=== PATIENT | male | born 1950 | race Caucasian/White ===

== ENCOUNTER 2020-06-19 08:08 | Outpatient (REF) | payer MEDICARE, MEDICAID, SELFPAY ==
[2020-06-19 10:12] LABS: MANUAL DIFF FLAG NO
[2020-06-19 10:44] LABS: Glucose Urine UA NEG (NEG); Leukocyte Esterase Urine NEG (NEG); Nitrite Urine NEG (NEG); PH 6.5 (5.0-8.0); Urine Blood TRACE (NEG); Urine Ketones NEG (NEG); Urine Protein NEG (NEG-TRACE)
[2020-06-19 10:44] LABS: Basophils Absolute Auto 0.1 X10*3/uL (0.0-0.2); Basophils Percent Auto 0.7 % (0-2); Eosinophils Absolute Auto 0.2 X10*3/uL (0.0-0.4); Eosinophils Percent Auto 2.3 % (0-4); Hematocrit 40.3 % (42-52); Hemoglobin 13.9 g/dl (14.0-18.0); Imm Gran Abs Auto 0.02 X10*3/uL (0.00-0.03); Imm Gran Pct Auto 0.3 % (0.0-0.4); Lymphocytes Absolute Auto 1.6 X10*3/uL (1.2-4.9); Lymphocytes Percent Auto 23.3 % (20-40); Mean Corpuscular HGB Conc 34.5 g/dl (31.0-36.0); Mean Corpuscular Hemoglobin 31.3 pg (27.0-33.0); Mean Corpuscular Volume 90.8 fL (80-98); Mean Platelet Volume 10.8 fL (9.4-12.4); Monocytes Absolute Auto 0.7 X10*3/uL (0.1-1.2); Monocytes Percent Auto 9.6 % (2-11); Neutrophils Absolute Auto 4.4 X10*3/uL (2.0-8.3); Neutrophils Percent Auto 63.8 % (45-73); Platelet Count 266 X10*3/uL (160-400); Red Blood Count 4.44 X10*6/uL (4.60-5.80); Red Cell Distribution Width 12.9 % (11.0-16.0)
[2020-06-19 10:46] LABS: Appearance Urine CLEAR; Color Urine YELLOW
[2020-06-19 10:56] LABS: Alanine Aminotransferase 44 U/L (0-40); Albumin Level 4.7 g/dL (3.5-5.0); Alkaline Phosphatase 42 U/L (39-117); Anion Gap 9 (12-20); Aspartate Amino Transferase 25 U/L (5-37); Bilirubin Total 0.6 mg/dL (0.0-1.0); Blood Urea Nitrogen 16 mg/dL (9-16); Calcium 9.4 mg/dL (8.4-10.2); Carbon Dioxide 31 mmol/L (22-29); Chloride 99 mmol/L (96-108); Cholesterol 183 mg/dL; Estimated Glomerular Filt Rate > 60; Glucose Fasting 115 mg/dL (60-99); HDL Cholesterol 46 mg/dL; LDL Cholesterol Calculated 122 mg/dl; Potassium 4.1 mmol/l (3.3-5.1); Sodium 135 mmol/L (135-145); Total Protein 7.2 g/dL (6.5-8.0); Triglycerides 79 mg/dL
[2020-06-19 11:04] LABS: RBC Urine 0-2 /HPF (0); Squamous Epithelial Cell Urine TRACE /LPF; WBC Urine 0 /HPF (0-4)
[2020-06-19 11:20] LABS: Free T4 (Free Thyroxine) 0.95 ng/dL (0.71-1.85); Thyroid Stimulating Hormone 5.48 mIU/mL (0.32-4.0)
[2020-06-19 12:17] LABS: Prostate Specific Antigen Scr 7.35 ng/mL (<0.05-4.0)
== END 2020-06-19 08:09 | disposition home or self-care (01) ==
LOC: HO.10HDL 08:08
PROVIDERS: Visit Provider Internal Medicine
DX: Z12.5 Encounter for screening for malignant neoplasm of prostate (principal); E03.9 Hypothyroidism, unspecified; E78.00 Pure hypercholesterolemia, unspecified; R63.4 Abnormal weight loss; R35.0 Frequency of micturition
CPT/HCPCS: 36415; 80053; 80061; 81001; 84153; 84439; 84443; 85025

== ENCOUNTER → 2020-09-11 15:06 | Outpatient (BNVA) | payer MEDICARE, MEDICAID, SELFPAY | PROVIDERS: PCP Internal Medicine; Visit Provider Urology | DX: R97.20 Elevated prostate specific antigen [PSA] (principal) | CPT/HCPCS: 99202 ==

== ENCOUNTER 2020-09-12 08:58 | Outpatient (REF) | payer MEDICARE, MEDICAID, SELFPAY ==
[2020-09-12 12:18] LABS: PSA,Total (Free>4and<10) 12.55 ng/mL (0.00-4.00)
== END 2020-09-12 08:59 | disposition home or self-care (01) ==
LOC: HO.10HDL 08:58
PROVIDERS: Visit Provider Urology
DX: N40.1 Benign prostatic hyperplasia with lower urinary tract symptoms (principal); N13.8 Other obstructive and reflux uropathy; R97.20 Elevated prostate specific antigen [PSA]; Z12.5 Encounter for screening for malignant neoplasm of prostate
CPT/HCPCS: 36415; 84153

== ENCOUNTER → 2020-09-25 10:12 | Outpatient (BNVA) | payer MEDICARE, OTHER, SELFPAY | PROVIDERS: PCP Internal Medicine; Visit Provider Urology | DX: R97.20 Elevated prostate specific antigen [PSA] (principal) | CPT/HCPCS: 99212 ==

== ENCOUNTER 2020-10-02 | Outpatient (REF) | payer MEDICARE, SELFPAY | END 2020-10-02 00:01 | disposition home or self-care (01) | LOC: HO.US | PROVIDERS: Visit Provider Urology | DX: R97.20 Elevated prostate specific antigen [PSA] (principal); Z87.891 Personal history of nicotine dependence; Z88.2 Allergy status to sulfonamides | CPT/HCPCS: 55700; 99211 ==

== ENCOUNTER 2020-10-02 11:09 | Outpatient (REF) | payer MEDICARE, OTHER, SELFPAY | END 2020-10-02 11:10 | disposition home or self-care (01) | LOC: HO.LAB 11:09 | PROVIDERS: PCP Internal Medicine; Visit Provider Urology | DX: R97.20 Elevated prostate specific antigen [PSA] (principal); Z12.5 Encounter for screening for malignant neoplasm of prostate | CPT/HCPCS: 55700; 88305 ==

== ENCOUNTER → 2020-10-09 11:21 | Outpatient (BNVA) | payer MEDICARE, OTHER, SELFPAY | PROVIDERS: Visit Provider Urology | DX: C61 Malignant neoplasm of prostate (principal); Z98.890 Other specified postprocedural states | CPT/HCPCS: 99212 ==

== ENCOUNTER → 2020-10-13 09:50 | Outpatient (REF) | payer MEDICARE, OTHER, SELFPAY ==
--- NOTE | ~2020-10-13 | NM_ITS ---
EXAMINATION: NM BONE SCAN OF THE WHOLE BODY CLINICAL INFORMATION: Prostate cancer, elevated PSA. Ultrasound-guided prostate biopsy 10/02/2020. COMPARISON: No previous bone scan or recent radiographs are available for comparison. Radiographs of the chest dated 05/24/2019 are the most recent radiographs available for comparison. TECHNIQUE: Multiple gamma scintillation camera images of the whole body were performed 3 hours following the intravenous administration of 25.0 mCi Tc-99m MDP. FINDINGS: In the head, no significant abnormalities are present. In the thoracic cage and upper extremities, there is mildly increased activity in the acromioclavicular and sternoclavicular joints bilaterally. Some residual radiopharmaceutical at the injection site in the left antecubital fossa is noted. In the spine, a minimal thoracolumbar scoliosis is present with lower lumbar convexity to the right. No foci of abnormal activity are present in the spine. In the pelvis, no significant abnormalities are present. In the lower extremities, no significant abnormalities are present. No other definite bony abnormalities are noted. The urinary bladder and faint visualization of both kidneys are noted. NM/NM bone scan whole body IMPRESSION: A few mild nonspecific abnormalities are noted as described above and these are all likely arthritic or traumatic in etiology. None of these abnormalities is strongly suspicious for metastatic disease.
== END ==
LOC: HO.NUCMED 09:50
PROVIDERS: Visit Provider Urology
DX: C61 Malignant neoplasm of prostate (principal); C79.51 Secondary malignant neoplasm of bone
CPT/HCPCS: 78306; A9503

== ENCOUNTER 2020-10-17 08:52 | Outpatient (REF) | payer MEDICARE, MEDICAID, SELFPAY ==
--- NOTE | ~2020-10-17 | CT_ITS ---
EXAMINATION: CT ABDOMEN AND PELVIS WITHOUT CONTRAST CLINICAL INFORMATION: Abdominal pain, ? Neoplasm related. COMPARISON: None TECHNIQUE: Multidetector volumetric imaging was performed from the superior aspect of the liver through the pubic symphysis. Sagittal and coronal reformatted images were obtained on the technologist's workstation. This CT examination was performed using dose optimization techniques as appropriate, variously including the following: *Automated exposure control *Adjustment of mA and/or kV according to patient size (this includes techniques or standardized protocols for targeted exams where dose is matched to indication/reason for exam; i.e. extremities or head) *Use of iterative reconstruction technique DLP: 431 mGy-cm FINDINGS: LUNG BASES: The visualized lung bases are unremarkable. LIVER, GALLBLADDER, AND BILIARY TREE: The liver is normal in size, shape, and attenuation. No focal hepatic lesion or biliary ductal dilatation is present. The gallbladder is unremarkable with no evidence of radiopaque gallstones, gallbladder wall thickening, or obvious pericholecystic inflammatory changes. PANCREAS: Unremarkable. SPLEEN: Unremarkable. ADRENAL GLANDS: Unremarkable. KIDNEYS AND URETERS: There is mild cortical thinning or postsurgical changes in the posterior cortex upper pole left kidney. Otherwise, both kidneys are normal size, shape and position. No radiopaque renal calculi or hydronephrosis seen. BLADDER: Unremarkable. GASTROINTESTINAL TRACT: Scattered stool is seen throughout the colon without any significant distention. The small bowel loops are normal caliber. The appendix is normal caliber. ABDOMINAL WALL: There is evidence of anterior abdominal wall hernia repair with mesh in place. No recurrent hernia seen. LYMPH NODES: Normal. VASCULAR: Unremarkable. PELVIC VISCERA: The prostate gland is enlarged. The periprostatic fat planes are preserved. No free air or free fluid seen. OSSEOUS STRUCTURES: No lytic or sclerotic process seen. There are degenerative disc changes with vacuum disc phenomena at the L3-L4, L4-L5 and L5-S1 disc levels with mild posterior spondylosis. No lytic or sclerotic process seen. CT/CT abdomen pelvis wo con IMPRESSION: Mild prostate enlargement with central gland calcification. No abnormal pelvic or inguinal lymph nodes seen.
== END 2020-10-17 08:53 | disposition home or self-care (01) ==
LOC: HO.CT 08:52
PROVIDERS: Visit Provider Urology
DX: C61 Malignant neoplasm of prostate (principal); C79.51 Secondary malignant neoplasm of bone; G89.3 Neoplasm related pain (acute) (chronic)
CPT/HCPCS: 74176

== ENCOUNTER → 2020-10-21 08:30 | Outpatient (BNVA) | payer MEDICARE, OTHER, SELFPAY | PROVIDERS: Visit Provider Urology | DX: C61 Malignant neoplasm of prostate (principal) | CPT/HCPCS: 96402; 99212; J9217 ==

== ENCOUNTER 2020-11-12 11:31 | Outpatient (REF) | payer MEDICARE, OTHER, SELFPAY ==
[2020-11-12 11:44] VITALS: BMI 24.7
[2020-11-12 11:45] VITALS: BP 151/87; PULSE 68; RESP 16; TEMP 37.1; O2SAT 99
[2020-11-12 12:32] VITALS: BP 158/75; PULSE 80; RESP 16; O2SAT 98
== END 2020-11-12 11:32 | disposition home or self-care (01) ==
LOC: HO.MS 11:31
PROVIDERS: PCP Internal Medicine; Visit Provider Urology
PROC: (CPT 55876; principal; 2020-11-12 12:00)
DX: C61 Malignant neoplasm of prostate (principal)
CPT/HCPCS: 55876; 76942; A4648

== ENCOUNTER 2021-02-03 12:16 | Outpatient (REF) | payer MEDICARE, MEDICAID, SELFPAY ==
[2021-02-03 13:23] LABS: Basophils Percent Auto 0.4 % (0-2); Eosinophils Absolute Auto 1.6 X10*3/uL (0.0-0.4); Eosinophils Percent Auto 16.9 % (0-4); Hematocrit 31.8 % (42-52); Imm Gran Abs Auto 0.09 X10*3/uL (0.00-0.03); Lymphocytes Absolute Auto 0.6 X10*3/uL (1.2-4.9); Lymphocytes Percent Auto 6.6 % (20-40); MANUAL DIFF FLAG SCAN; Mean Corpuscular HGB Conc 34.6 g/dl (31.0-36.0); Mean Corpuscular Hemoglobin 31.9 pg (27.0-33.0); Mean Corpuscular Volume 92.2 fL (80-98); Mean Platelet Volume 9.9 fL (9.4-12.4); Monocytes Absolute Auto 0.9 X10*3/uL (0.1-1.2); Monocytes Percent Auto 9.9 % (2-11); Neutrophils Absolute Auto 6.1 X10*3/uL (2.0-8.3); Neutrophils Percent Auto 65.2 % (45-73); Platelet Count 227 X10*3/uL (160-400); Red Blood Count 3.45 X10*6/uL (4.60-5.80); Red Cell Distribution Width 14.6 % (11.0-16.0); SCAN SMEAR FLAG 1; White Blood Count 9.3 X10*3/uL (4.8-10.8)
[2021-02-03 14:06] LABS: Alanine Aminotransferase 27 U/L (0-40); Albumin Level 4.1 g/dL (3.5-5.0); Alkaline Phosphatase 34 U/L (39-117); Anion Gap 14 (12-20); Aspartate Amino Transferase 20 U/L (5-37); Bilirubin Total 0.4 mg/dL (0.0-1.0); Blood Urea Nitrogen 16 mg/dL (9-16); Calcium 9.1 mg/dL (8.4-10.2); Carbon Dioxide 24 mmol/L (22-29); Chloride 103 mmol/L (96-108); Estimated Glomerular Filt Rate > 60; Glucose Random 97 mg/dL (60-115); Magnesium 2.1 mg/dL (1.6-2.6); Potassium 4.7 mmol/L (3.3-5.1); Sodium 136 mmol/L (135-145)
[2021-02-03 14:12] LABS: Free T4 (Free Thyroxine) 0.81 ng/dL (0.71-1.85); Thyroid Stimulating Hormone 3.55 uIU/mL (0.32-4.0)
[2021-02-03 14:36] LABS: SLIDE REVIEW VERIFIED
== END 2021-02-03 12:17 | disposition home or self-care (01) ==
LOC: HO.10HDL 12:16
PROVIDERS: Visit Provider Internal Medicine
DX: R25.2 Cramp and spasm (principal); E03.9 Hypothyroidism, unspecified; E78.00 Pure hypercholesterolemia, unspecified
CPT/HCPCS: 36415; 80053; 83735; 84439; 84443; 85025

== ENCOUNTER → 2021-03-03 09:55 | Outpatient (BNVA) | payer MEDICARE, MEDICAID, SELFPAY | PROVIDERS: PCP Internal Medicine; Visit Provider Urology | DX: C61 Malignant neoplasm of prostate (principal); R39.15 Urgency of urination; G47.62 Sleep related leg cramps | CPT/HCPCS: 99212 ==

== ENCOUNTER → 2021-04-24 10:41 | Outpatient (BNVA) | payer MEDICARE, OTHER, SELFPAY | PROVIDERS: PCP Internal Medicine; Visit Provider Urology | DX: C61 Malignant neoplasm of prostate (principal); R39.15 Urgency of urination | CPT/HCPCS: 96402; 99212; J9217 ==

== ENCOUNTER 2021-05-10 19:14 | Emergency (ER) | payer MEDICARE, OTHER, SELFPAY ==
--- NOTE | 2021-05-10 | ECG_ITS ---
Test Reason : EXPOSURE Blood Pressure : / mmHG Vent. Rate : 081 BPM Atrial Rate : 081 BPM P-R Int : 124 ms QRS Dur : 094 ms QT Int : 388 ms P-R-T Axes : 038 -35 036 degrees QTc Int : 450 ms Normal sinus rhythm with sinus arrhythmia Left axis deviation Abnormal ECG No previous ECGs available Referred By: Lobo Israel Electronically Signed By:RAMONA MARLEY
[2021-05-10 19:24] VITALS: BP 163/76; PULSE 78; RESP 20; TEMP 36.8; O2SAT 97; BMI 22.8
[2021-05-10 19:29] VITALS: BP 120/68; PULSE 74; O2SAT 100
--- NOTE | 2021-05-10 19:29 | ED.EYEPROB ---
HPI - Eye Problem General Chief complaint: General Medical Stated complaint: exposure Time Seen by Provider: 05/10/21 19:27 Source: patient Mode of arrival: ambulatory Limitations: no limitations History of Present Illness HPI Narrative: Patient was removing the refrigerator had to cut the tubing in the back free on it started leaking went to his face but 2- 3 minutes felt burning in the eyes wash his eyes with water. No chest pain or shortness of breath feels better now back to normal call the poison Control who asked him to go to the hospital Related Data Home Medications Medication Instructions Recorded Confirmed levothyroxine 50 mcg tablet mcg PO 09/11/20 09/11/20 sertraline 100 mg tablet mg PO 09/11/20 09/11/20 simvastatin 20 mg tablet mg PO 09/11/20 09/11/20 Previous Rx's Medication Instructions Recorded ciprofloxacin HCl 500 mg tablet 500 mg PO BID 2 Days #4 tab 09/25/20 (Cipro) levofloxacin 500 mg tablet 500 mg PO DAILY 1 Days #1 tab 11/12/20 magnesium citrate 125 mg capsule 250 mg PO BEDTIME 30 Days #60 cap 03/03/21 tolterodine 4 mg capsule,extended 4 mg PO .Q.a.m. 30 Days #30 cap 04/20/21 release 24 hr finasteride 5 mg tablet 5 mg PO DAILY 90 Days #90 tab 04/24/21 tamsulosin 0.4 mg capsule 0.4 mg PO BEDTIME 90 Days #90 cap 04/24/21 Allergies Allergy/AdvReac Type Severity Reaction Status Date / Time Sulfa (Sulfonamide Allergy Intermediate RASH Verified 05/10/21 19:29 Antibiotics) [SULFA (SULFONAMIDE ANTIBIOTICS)] sulfa Allergy Unknown hives Uncoded 05/10/21 19:29 Review of Systems Review of Systems: Yes all other systems are reviewed and are negative PMFSH Past Medical History Medical History Carbuncle of buttock Depression Elevated PSA Epidermal cyst Recurrent left inguinal hernia Family History Family History Father No problems noted. Mother Heart valve problem Social History Social History Advance Directives: Yes Advance Directives on File: Yes Advance Directives Date on File: 06/19/20 Physical Exam Vital Signs: Vital Signs: Last Vital Signs Temp 98.3 F 05/10/21 19:24 Pulse 78 05/10/21 19:24 Resp 20 05/10/21 19:24 BP 163/76 H 05/10/21 19:24 Pulse Ox 97 05/10/21 19:24 Body Mass Index 22.8 Const: General: no acute distress and well developed Orientation/consciousness: patient oriented x3 HENMT: Head: Yes normocephalic Mouth: Normal oral and palatal mucosa present Throat: Yes posterior oropharynx normal Eyes: General: appearance normal, both eyes and all related structures Conjunctivae: conjunctivae normal Sclerae: sclerae normal Corneas: corneas normal Pupils: Equal, round and reactive pupils present Resp: Effort & Inspection: normal respiratory effort Auscultation: clear to auscultation bilaterally, no crackles, no rales and no rhonchi Cardio: Palpation: normal PMI Heart sounds: S1 normal heart sound present and S2 normal heart sound present Neuro: General: patient oriented x3 and no focal motor deficits Cranial nerves: Yes Equal, round and reactive pupils present MDM - Eye Problem MDM Narrative Medical decision making narrative: Minor exposure to hydrocarbons free on eyes were normal had slight burning at the scene patient washed his eye prior to arrival washed in the ER again. EKG was done which was normal no acute ischemic changes will discharge patient ECG Data Attestation: I personally reviewed and interpreted this ECG as follows: Interpretation: Normal sinus rhythm heart rate 81 beats per minute left axis deviation no acute ST T wave changes impression no ischemia Discharge Plan Discharge Clinical Impression: Chemical exposure of eye Patient Disposition: Home, Self-Care Instructions: [facility] [place] (ED) Additional Instructions: Local care as advised Report to PCP/ED if any blurry vision or pain in the eyes Prescriptions: No Action ciprofloxacin HCl [Cipro] 500 mg tablet 500 mg PO BID 2 Days Qty: 4 RF: 0 levofloxacin 500 mg tablet 500 mg PO DAILY 1 Days Qty: 1 RF: 0 tolterodine 4 mg capsule,extended release 24hr 4 mg PO .Q.a.m. 30 Days Qty: 30 RF: 6 sertraline 100 mg tablet PO RF: 0 levothyroxine 50 mcg tablet PO RF: 0 simvastatin 20 mg tablet PO RF: 0 magnesium citrate 125 mg capsule 250 mg PO BEDTIME 30 Days Qty: 60 RF: 0 finasteride 5 mg tablet 5 mg PO DAILY 90 Days Qty: 90 RF: 2 tamsulosin 0.4 mg capsule 0.4 mg PO BEDTIME 90 Days Qty: 90 RF: 1
--- NOTE | 2021-05-10 19:30 | PC.NURSE ---
This RN contacting Poison Control. Poison Control advising this RN to obtain EKG due to the possibility of arrhythmias. Poison Control states if EKG and eye exam are well, pt can be discharged. aware.
--- NOTE | 2021-05-10 19:43 | PC.NURSE ---
at bedside. technology strategist at bedside for EKG.
== END 2021-05-10 20:18 | disposition home or self-care (01) ==
PROVIDERS: Emergency Provider Internal Medicine
DX: H57.13 Ocular pain, bilateral (principal); Z57.5 Occupational exposure to toxic agents in other industries; Z79.899 Other long term (current) drug therapy
CPT/HCPCS: 93005; 99283

== ENCOUNTER 2021-07-20 08:02 | Outpatient (REF) | payer MEDICARE, OTHER, SELFPAY ==
[2021-07-20 11:20] LABS: Prostate Specific Antigen 0.21 ng/mL (<0.05-4.0)
[2021-07-24 13:11] LABS: Testosterone, Total 6 ng/dL (250-1100)
== END 2021-07-20 08:03 | disposition home or self-care (01) ==
LOC: HO.10HDL 08:02
PROVIDERS: Visit Provider Urology
DX: Z12.5 Encounter for screening for malignant neoplasm of prostate (principal); C61 Malignant neoplasm of prostate
CPT/HCPCS: 36415; 84153; 84403

== ENCOUNTER → 2021-07-28 09:09 | Outpatient (BNVA) | payer MEDICARE, MEDICAID, SELFPAY | PROVIDERS: PCP Internal Medicine; Visit Provider Urology | DX: C61 Malignant neoplasm of prostate (principal); R39.15 Urgency of urination; R97.20 Elevated prostate specific antigen [PSA]; K40.91 Unilateral inguinal hernia, without obstruction or gangrene, recurrent; F32.A Depression, unspecified; Z88.2 Allergy status to sulfonamides | CPT/HCPCS: 99212 ==

== ENCOUNTER 2021-09-11 16:22 | Observation (INO) | payer MEDICARE, MEDICAID, SELFPAY ==
--- NOTE | ~2021-09-11 | US_ITS ---
EXAMINATION: US EXTRACRANIAL CAROTID DUPLEX, BILATERAL CLINICAL INFORMATION: Slurred speech, TIA COMPARISON: 09/13/2005 TECHNIQUE: Real-time ultrasound and Doppler techniques (integrating B-mode 2-D vascular images, Doppler spectral analysis and color-flow Doppler imaging) were utilized to interrogate the extracranial carotid arteries, the vertebral arteries and proximal subclavian arteries bilaterally. The degree of stenosis is determined by criteria similar to NASCET. FINDINGS: Right Side: 1. There is mild atherosclerotic plaque seen in the bifurcation/proximal ICA region. 2. The common carotid artery PSV proximally is 82 cm/s and distally 87 cm/s. 3. The proximal internal carotid artery velocities are 70 cm/s systolic and 19 cm/s diastolic. 4. The proximal external carotid artery PSV is 93 cm/s. 5. The vertebral artery shows antegrade flow. 6. The subclavian artery waveforms are normal. Left Side: 1. There is mild atherosclerotic plaque seen in the bifurcation/proximal ICA region. 2. The common carotid artery PSV proximally is 93 cm/s and distally 82 cm/s. 3. The proximal internal carotid artery velocities are 65 cm/s systolic and 26 cm/s diastolic. 4. The proximal external carotid artery PSV is 88 cm/s. 5. The vertebral artery shows antegrade flow. 6. The subclavian artery waveforms are normal. US/US carotid duplex BI IMPRESSION: 1. RIGHT: Minimal, non-hemodynamically significant stenosis of the proximal right internal carotid artery corresponding to a 0-49% stenosis by velocity criteria. 2. LEFT: Minimal, non-hemodynamically significant stenosis of the proximal left internal carotid artery corresponding to a 0-49% stenosis by velocity criteria. 3. There is no change in the category severity of disease when compared to the previous study dated 09/13/2005.
--- NOTE | ~2021-09-11 | CT_ITS ---
EXAMINATION: CT HEAD WITHOUT CONTRAST CLINICAL INFORMATION: Speech problems COMPARISON: None TECHNIQUE: Contiguous axial imaging was performed from the skull base to vertex without intravenous administration of contrast. This CT examination was performed using dose optimization techniques as appropriate, variously including the following: *Automated exposure control *Adjustment of mA and/or kV according to patient size (this includes techniques or standardized protocols for targeted exams where dose is matched to indication/reason for exam; i.e. extremities or head) *Use of iterative reconstruction technique DLP: 657 mGy-cm FINDINGS: There is no evidence of acute intracranial hemorrhage or territorial infarction. No abnormal mass effect or midline shift is seen. M[place] to white matter differentiation is well preserved. No extra-axial fluid collections are identified. The ventricles are normal in size. There is no abnormal attenuation within the brain parenchyma. The osseous structures and soft tissues are normal. Paranasal sinuses are clear. Left mastoid air cell effusion. CT/CT head/brain wo con IMPRESSION: No acute intracranial pathology.
--- NOTE | ~2021-09-11 | XR_ITS ---
EXAMINATION: XR chest 1V CLINICAL INFORMATION: Reason for Exam TIA symptoms COMPARISON: Chest radiograph 05/24/2019 TECHNIQUE: One view of the chest XR/XR chest 1V FINDINGS/IMPRESSION: Clear lungs. No pneumothorax. No pleural effusion. Normal cardiomediastinal silhouette.
[2021-09-11 17:06] VITALS: BP 170/92; PULSE 78; RESP 18; TEMP 36.7; O2SAT 99; BMI 23.6
[2021-09-11 18:04] LABS: MANUAL DIFF FLAG NO
[2021-09-11 18:05] LABS: Basophils Percent Auto 0.4 % (0-2); Eosinophils Absolute Auto 0.2 X10*3/uL (0.0-0.4); Eosinophils Percent Auto 2.6 % (0-4); Hematocrit 33.7 % (42.0-52.0); Hemoglobin 11.5 g/dl (14.0-18.0); Imm Gran Abs Auto 0.03 X10*3/uL (0.00-0.03); Imm Gran Pct Auto 0.4 % (0.0-0.4); Lymphocytes Absolute Auto 0.6 X10*3/uL (1.2-4.9); Lymphocytes Percent Auto 7.3 % (20-40); Mean Corpuscular HGB Conc 34.1 g/dl (31.0-36.0); Mean Corpuscular Hemoglobin 30.9 pg (27.0-33.0); Mean Corpuscular Volume 90.6 fL (80.0-98.0); Mean Platelet Volume 9.1 fL (9.4-12.4); Monocytes Absolute Auto 0.7 X10*3/uL (0.1-1.2); Neutrophils Absolute Auto 6.6 x10*3/uL (2.0-8.3); Neutrophils Percent Auto 81.3 % (45-73); Platelet Count 240 X10*3/uL (160-400); Red Blood Count 3.72 X10*6/uL (4.60-5.80); Red Cell Distribution Width 13.1 % (11.0-16.0); White Blood Count 8.1 X10*3/uL (4.8-10.8)
[2021-09-11 18:10] LABS: Prothrombin Time 11.2 SEC (9.9-13.0)
[2021-09-11 18:19] LABS: COVID-19 Test Negative (Negative)
[2021-09-11 18:21] LABS: Alanine Aminotransferase 34 U/L (0-40); Albumin Level 4.4 g/dL (3.5-5.0); Alkaline Phosphatase 43 U/L (39-117); Anion Gap 13 (12-20); Aspartate Amino Transferase 30 U/L (5-37); Bilirubin Total < 0.2 mg/dL (0.0-1.0); Blood Urea Nitrogen 23 mg/dL (9-16); Calcium 9.8 mg/dL (8.4-10.2); Carbon Dioxide 28 mmol/L (22-29); Chloride 101 mmol/L (96-108); Creatinine Clr Calc Pharmacy 88.1; Estimated Glomerular Filt Rate > 60; Glucose Random 108 mg/dL (60-115); Potassium 4.6 mmol/L (3.3-5.1); Sodium 137 mmol/L (135-145)
[2021-09-11 18:25] LABS: Troponin-I High Sensitivity 10.7 ng/L (<3.5-35.0)
--- NOTE | 2021-09-11 21:27 | ECG_ITS ---
Test Reason : STROKE Blood Pressure : / mmHG Vent. Rate : 077 BPM Atrial Rate : 077 BPM P-R Int : 144 ms QRS Dur : 090 ms QT Int : 400 ms P-R-T Axes : 014 -27 010 degrees QTc Int : 452 ms Sinus rhythm with marked sinus arrhythmia Otherwise normal ECG When compared with ECG of 10-MAY-2021 19:41, No significant change was found Referred By: Mckenzie Galvez Electronically Signed By:ELIE LOZANO MD
--- NOTE | 2021-09-11 22:06 | PC.NURSE ---
pt is walking in waiting room with a steady gait. no sign of distress at this time.
--- NOTE | 2021-09-11 23:27 | ED.NEUROSD ---
HPI - Neuro Symptoms/Deficit General Chief Complaint: Neuro Symptoms/Deficit Stated Complaint: ?tia came drs office Time Seen by Provider: 09/11/21 21:27 Source: patient Mode of arrival: ambulatory Limitations: no limitations History of Present Illness HPI Narrative: 71-year-old male came in for evaluation of speech problem. Patient's symptoms started about 5 days ago with slurred speech, patient has no problem to express himself but have a problem to pronounce certain words, patient also complaining of intermittent headache for the past 5 days, but no acute visual change, no focal weakness or numbness, overall patient feels generalized weakness with no energy. Patient was seen by his doctor today who sent him to the emergency room for further evaluation. Patient also been complaining of bilateral lower extremities calf pain. Related Data Home Medications Medication Instructions Recorded Confirmed levothyroxine 50 mcg tablet mcg PO 09/11/20 09/11/20 sertraline 100 mg tablet mg PO 09/11/20 09/11/20 simvastatin 20 mg tablet mg PO 09/11/20 09/11/20 Previous Rx's Medication Instructions Recorded ciprofloxacin HCl 500 mg tablet 500 mg PO BID 2 Days #4 tab 09/25/20 (Cipro) levofloxacin 500 mg tablet 500 mg PO DAILY 1 Days #1 tab 11/12/20 magnesium citrate 125 mg capsule 250 mg PO BEDTIME 30 Days #60 cap 03/03/21 tolterodine 4 mg capsule,extended 4 mg PO .Q.a.m. 30 Days #30 cap 04/20/21 release 24 hr finasteride 5 mg tablet 5 mg PO DAILY 90 Days #90 tab 04/24/21 tamsulosin 0.4 mg capsule 0.4 mg PO BEDTIME 90 Days #90 cap 04/24/21 Allergies Allergy/AdvReac Type Severity Reaction Status Date / Time Sulfa (Sulfonamide Allergy Intermediate RASH Verified 09/11/21 17:04 Antibiotics) [SULFA (SULFONAMIDE ANTIBIOTICS)] sulfa Allergy Unknown hives Uncoded 07/28/21 09:11 Review of Systems Review of Systems: all other systems are reviewed and are negative Constitutional: Reports as per HPI and Reports no additional constitutional complaints Eyes: Reports as per HPI and Reports no additional eye complaints Reports system reviewed and no additional complaints, except as documented Cardiovascular: Reports as per HPI and Reports no additional cardiovascular complaints Respiratory: Reports as per HPI and Reports no additional respiratory complaints Gastrointestinal: Reports as per HPI and Reports no additional gastrointestinal complaints Genitourinary: Reports no additional female genitourinary complaints Musculoskeletal: Reports no additional musculoskeletal complaints Skin/Breast: Reports system reviewed and no additional complaints, except as docu Psychiatric: Reports no additional psychiatric complaints Endocrine: Reports no additional endocrine complaints Hematologic/Lymphatic: Reports no additional hematologic/lymphatic complaints Allergic/Immunologic: Reports no additional allergic/immunologic complaints Reports system reviewed and no additional complaints, except as documented and Reports Abnormal speech present [facility] Past Medical History Medical History Carbuncle of buttock Depression Elevated PSA Epidermal cyst Recurrent left inguinal hernia Family History Family History Father No problems noted. Mother Heart valve problem Social History Social History Advance Directives: Yes Advance Directives on File: Yes Advance Directives Date on File: 06/19/20 Physical Exam Vital Signs: Vital Signs: Last Vital Signs Temp 98.0 F 09/11/21 17:06 Pulse 86 09/11/21 23:48 Resp 16 09/11/21 23:48 BP 169/86 H 09/11/21 23:48 Pulse Ox 96 09/11/21 23:48 BMI result Body Mass Index 23.6 vital signs have been reviewed as appeared to be correct. Blood pressure elevated. Heart rate normal. Respiration rate normal. Temperature normal. Oxygen saturation normal. Appearance: Alert. Oriented X3. No acute distress. Head: Normal external exam. Normocephalic. Atraumatic. No Serrano signs noted. No raccoon eyes noted Eyes: PERRLA. EOMI. Conjunctiva and sclera normal. Eyelids normal. ENT: TM's Normal. Pharynx normal. Uvula midline. Moist mucous membranes. No trismus noted. No drooling noted. No muffled voice noted. Neck: Normal inspection. Neck supple. FROM. No adenopathy. Thyroid Normal. No meningeal signs. No neck mass noted. CVS: Normal heart rate and rhythm. Heart sound normal. No murmurs noted. Pulses normal throughout. Respiratory: No respiratory distress. Painless inspiration. Breath sounds normal. No wheezes/rales/rhonchi noted. Chest nontender. No accessory muscle usage noted or decreased air movement noted. Abdomen: Soft and nontender. Bowel sounds normal in all 4 quadrants. No distention noted. No organomegaly noted. No visible injury noted. Back: No CVA tenderness. Full range of motion noted. Skin: Skin warm and dry. Normal skin color. Normal skin turgor. No rashes/lesions/lacerations noted. Extremities: No lower extremity edema. Extremities exhibit normal range of motion. Extremities nontender. Neuro: Oriented X 3. Cranial nerve exam: II-XII are grossly intact No motor deficit. No sensory deficit. Reflexes normal. Course Course Course Narrative: assessment and plan. a 71-year-old male with history of TIA symptoms or mini-stroke symptoms started about 5 days ago, with mild speech aphasia, patient out of the window for thrombolytics therapy plus symptoms is minor, MRI is not available in this institution at this time. Will admit the patient for neurological consultation. Lower extremities pain patient has negative D-dimer which making DVT is unfavorable diagnosis. MDM - Neuro Symptoms/Deficit Medical Records Attestation: I reviewed the patient's medical records. Lab Data Attestation: I reviewed the patient's lab results. Result diagrams: 09/11/21 17:59 09/11/21 17:59 Labs: Lab Results 09/11/21 09/11/21 09/11/21 Range/Units 17:59 17:59 17:59 WBC 8.1 (4.8-10.8) X10*3/uL RBC 3.72 L (4.60-5.80) X10*6/uL Hgb 11.5 L (14.0-18.0) g/dl Hct 33.7 L (42.0-52.0) % MCV 90.6 (80.0-98.0) fL MCH 30.9 (27.0-33.0) pg MCHC 34.1 (31.0-36.0) g/dl RDW 13.1 (11.0-16.0) % Plt Count 240 (160-400) X10*3/uL MPV 9.1 L (9.4-12.4) fL Immature Gran % (Auto) 0.4 (0.0-0.4) % Neut % (Auto) 81.3 H (45-73) % Lymph % (Auto) 7.3 L (20-40) % [place] % (Auto) 8.0 (2-11) % Eos % (Auto) 2.6 (0-4) % Baso % (Auto) 0.4 (0-2) % Lymph # (Auto) 0.6 L (1.2-4.9) X10*3/uL [place] # (Auto) 0.7 (0.1-1.2) X10*3/uL Eos # (Auto) 0.2 (0.0-0.4) X10*3/uL Baso # (Auto) 0.0 (0.0-0.2) X10*3/uL Abs Immat Gran (auto) 0.03 (0.00-0.03) X10*3/uL Absolute Neuts (auto) 6.6 (2.0-8.3) x10*3/uL Absolute Nucleated RBC 0.000 (0.0-0.012) X10*3/uL Nucleated RBC % (auto) 0.0 (0.0-0.2) /100WBC PT 11.2 (9.9-13.0) SEC INR 1.0 (0.9-1.1) D-Dimer High Sensitivty < 150 NG/ML Sodium 137 (135-145) mmol/L Potassium 4.6 (3.3-5.1) mmol/L Chloride 101 (96-108) mmol/L Carbon Dioxide 28 (22-29) mmol/L Anion Gap 13 (12-20) BUN 23 H (9-16) mg/dL Creatinine 0.78 (0.5-1.4) mg/dL Estim Creat Clear Calc 88.1 Estimated GFR > 60 Random Glucose 108 (60-115) mg/dL Calcium 9.8 D (8.4-10.2) mg/dL Total Bilirubin < 0.2 (0.0-1.0) mg/dL AST 30 D (5-37) U/L ALT 34 (0-40) U/L Alkaline Phosphatase 43 D (39-117) U/L Troponin I High Sens (<3.5-35.0) ng/L Total Protein 7.0 (6.5-8.0) g/dL Albumin 4.4 (3.5-5.0) g/dL COVID-19 (LUIS) (Negative) COVID-19 Clin Com 09/11/21 09/11/21 Range/Units 17:59 17:59 WBC (4.8-10.8) X10*3/uL RBC (4.60-5.80) X10*6/uL Hgb (14.0-18.0) g/dl Hct (42.0-52.0) % MCV (80.0-98.0) fL MCH (27.0-33.0) pg MCHC (31.0-36.0) g/dl RDW (11.0-16.0) % Plt Count (160-400) X10*3/uL MPV (9.4-12.4) fL Immature Gran % (Auto) (0.0-0.4) % Neut % (Auto) (45-73) % Lymph % (Auto) (20-40) % [place] % (Auto) (2-11) % Eos % (Auto) (0-4) % Baso % (Auto) (0-2) % Lymph # (Auto) (1.2-4.9) X10*3/uL [place] # (Auto) (0.1-1.2) X10*3/uL Eos # (Auto) (0.0-0.4) X10*3/uL Baso # (Auto) (0.0-0.2) X10*3/uL Abs Immat Gran (auto) (0.00-0.03) X10*3/uL Absolute Neuts (auto) (2.0-8.3) x10*3/uL Absolute Nucleated RBC (0.0-0.012) X10*3/uL Nucleated RBC % (auto) (0.0-0.2) /100WBC PT (9.9-13.0) SEC INR (0.9-1.1) D-Dimer High Sensitivty NG/ML Sodium (135-145) mmol/L Potassium (3.3-5.1) mmol/L Chloride (96-108) mmol/L Carbon Dioxide (22-29) mmol/L Anion Gap (12-20) BUN (9-16) mg/dL Creatinine (0.5-1.4) mg/dL Estim Creat Clear Calc Estimated GFR Random Glucose (60-115) mg/dL Calcium (8.4-10.2) mg/dL Total Bilirubin (0.0-1.0) mg/dL AST (5-37) U/L ALT (0-40) U/L Alkaline Phosphatase (39-117) U/L Troponin I High Sens 10.7 (<3.5-35.0) ng/L Total Protein (6.5-8.0) g/dL Albumin (3.5-5.0) g/dL COVID-19 (LUIS) Negative (Negative) COVID-19 Clin Com See Note Imaging Data CT scan - head: Attestation: I personally reviewed and interpreted this imaging study as follows: Radiologist's impression: No acute intracranial pathology. Chest x-ray: Attestation: I personally reviewed and interpreted this imaging study as follows: Radiologist's impression: 1. No acute abnormality of the right and left testicle. No evidence of testicular torsion. 2. Redemonstration of the hypoechoic vascular mass at the tail the left epididymis. ECG Data Attestation: I personally reviewed and interpreted this ECG as follows: Interpretation: Normal sinus rhythm at 77 beats per minute, normal intervals, no ST -T8 injuries, no change from old EKG. NIH Stroke Scale Internal: Other ( Five days after symptoms started) Level of Consciousness: Alert Level of Consciousness Questions: Answers both questions correctly Level of Consciousness Commands: Performs both tasks correctly Best Gaze: Normal Visual: No visual loss Facial Palsy: Normal Motor Arm (Right): No drift Motor Arm (Left): No drift Motor Leg (Right): No drift Motor Leg (Left): No drift Limb Ataxia: Absent Sensory: Normal Best Language: No aphasia Dysarthia: Mild to moderate dysarthria Extinction and Inattention: No abnormality Score: 1 Discharge Plan Discharge Clinical Impression: Transient cerebral ischemia Patient Disposition: Admitted As Inpatient
[2021-09-11 23:48] VITALS: BP 169/86; PULSE 86; RESP 16; O2SAT 96
[2021-09-11 23:52] LABS: D Dimer High Sensitivity < 150 NG/ML
--- NOTE | 2021-09-12 00:59 | PM.IMHP ---
History of Present Illness Date of Service: 09/12/21 Chief Complaint: Slurred speech 71-year-old male with a past medical history of hypertension, hypothyroidism, BPH, depression presented to the hospital with a chief complaint of slurred speech. Patient reports that since last and he has been having intermittent episodes of slurred speech unable to run insert and what is normally; denies any associated focal numbness tingling or weakness. Denies any headaches or blurry visions. Reports occasional dizziness. Denies any falls or trauma. Mentioned that today his sister asked him to go to the hospital for further evaluation. Currently denies any symptoms. Reports his symptoms resolved today of my interview. Denies any GI symptoms. Review of all other systems is negative except mentioned above ER course: Per ER team patient exam was nonfocal; CT head showed no acute findings; admitted to the hospital for possible TIA/MRI in the morning. [facility] Medical History Carbuncle of buttock Depression Elevated PSA Epidermal cyst Recurrent left inguinal hernia Family History Father No problems noted. Mother Heart valve problem Social History Advance Directives: Yes Advance Directives on File: Yes Advance Directives Date on File: 06/19/20 Meds Allergies Allergy/AdvReac Type Severity Reaction Status Date / Time Sulfa (Sulfonamide Allergy Intermediate RASH Verified 09/11/21 17:04 Antibiotics) [SULFA (SULFONAMIDE ANTIBIOTICS)] sulfa Allergy Unknown hives Uncoded 07/28/21 09:11 Active Medications: Current Medications Melatonin (Melatonin 3 Mg Tablet) 6 mg PO BEDTIME PRN PRN Reason: Insomnia Senna (Sennosides 8.6 Mg Tablet) 17.2 mg PO BEDTIME PRN PRN Reason: Constipation Sodium Chloride (0.9 % Sodium Chloride Flush 3 Ml Syringe) [facility] Medications Medication Instructions Recorded Confirmed Last Taken Type levothyroxine 50 mcg tablet mcg PO 09/11/20 09/11/20 Unknown History sertraline 100 mg tablet mg PO 09/11/20 09/11/20 Unknown History simvastatin 20 mg tablet mg PO 09/11/20 09/11/20 Unknown History Physical Exam Vital Signs and Narrative: Vital Signs: Last Vital Signs Temp 98.0 F 09/11/21 17:06 Pulse 86 09/11/21 23:48 Resp 16 09/11/21 23:48 BP 169/86 H 09/11/21 23:48 Pulse Ox 96 09/11/21 23:48 BMI result Body Mass Index 23.6 Gen: Appears be in no acute distress HEENT: NCAT, Moist mucosa. Pulmonary: Vesicular breath sounds, fair air entry CVS: Normal S1-S2 Abdomen: BS+, Soft, Nontender Extremities: Warm well perfused Neuro: Alert and awake. Nonfocal. Speech is clear. Cranial nerves intact. Results Labs CBC and Chem 7: 09/11/21 17:59 09/11/21 17:59 Labs: Laboratory Results - last 24 hr 09/11/21 09/11/21 09/11/21 17:59 17:59 17:59 MCV 90.6 MCH 30.9 MCHC 34.1 RDW 13.1 Plt Count 240 MPV 9.1 L Immature Gran % (Auto) 0.4 Neut % (Auto) 81.3 H Lymph % (Auto) 7.3 L Caroline % (Auto) 8.0 Eos % (Auto) 2.6 Baso % (Auto) 0.4 Lymph # (Auto) 0.6 L Caroline # (Auto) 0.7 Eos # (Auto) 0.2 Baso # (Auto) 0.0 Abs Immat Gran (auto) 0.03 Absolute Neuts (auto) 6.6 Absolute Nucleated RBC 0.000 Nucleated RBC % (auto) 0.0 PT 11.2 INR 1.0 D-Dimer High Sensitivty < 150 Anion Gap 13 Estim Creat Clear Calc 88.1 Estimated GFR > 60 Random Glucose 108 Calcium 9.8 D Total Bilirubin < 0.2 AST 30 D ALT 34 Alkaline Phosphatase 43 D Troponin I High Sens Total Protein 7.0 Albumin 4.4 COVID-19 ([facility]) COVID-19 Clin Com 09/11/21 09/11/21 17:59 17:59 MCV MCH MCHC RDW Plt Count MPV Immature Gran % (Auto) Neut % (Auto) Lymph % (Auto) Caroline % (Auto) Eos % (Auto) Baso % (Auto) Lymph # (Auto) Caroline # (Auto) Eos # (Auto) Baso # (Auto) Abs Immat Gran (auto) Absolute Neuts (auto) Absolute Nucleated RBC Nucleated RBC % (auto) PT INR D-Dimer High Sensitivty Anion Gap Estim Creat Clear Calc Estimated GFR Random Glucose Calcium Total Bilirubin AST ALT Alkaline Phosphatase Troponin I High Sens 10.7 Total Protein Albumin COVID-19 ([facility]IS) Negative COVID-19 Clin Com See Note Imaging Radiologist's Impressions: Impressions Head CT 09/12/21 00:00 IMPRESSION: No acute intracranial pathology. Chest X-Ray 09/12/21 00:45 FINDINGS/IMPRESSION: Clear lungs. No pneumothorax. No pleural effusion. Normal cardiomediastinal silhouette. Assessment and Plan (1) Transient cerebral ischemia: Status: Acute 71-year-old male with a past medical history of hypertension, hypothyroidism, BPH, depression presented to the hospital with a chief complaint of slurred speech. Symptoms currently resolved. Admitted for TIA. TIA: Patient reported he had slurred speech intermittent episodes. Currently resolved. No focal weakness on examination. CT head showed no acute findings Telemetry Cycle cardiac enzymes Echocardiogram with bubble study MRI brain in the morning Neurology consult Nursing service screen and PT/OT eventually. For all other chronic conditions, home medications continued including finasteride, tamsulosin, levothyroxine, sertraline. DVT prophylaxis: SCD boots Code status: Full code Quality Stroke Does the patient have a stroke diagnosis?: No VTE Prior VTE?: No VTE Risk Level:: Medical - low VTE Device Contraindication: N/A - Device Ordered VTE Drug Contraindication: Treatment Not Indicated
[2021-09-12 01:37] VITALS: BP 138/74; PULSE 75; RESP 16; TEMP 37.1; O2SAT 97
[2021-09-12 01:49] LABS: Appearance Urine CLEAR; Color Urine YELLOW; Glucose Urine UA NEG (NEG); Leukocyte Esterase Urine NEG (NEG); Nitrite Urine NEG (NEG); Specific Gravity - Urine 1.015 (1.005-1.025); Urine Blood NEG (NEG); Urine Ketones 15 MG/DL (NEG); Urine Protein NEG (NEG-TRACE)
[2021-09-12 05:08] VITALS: BP 142/68; PULSE 81; RESP 12; O2SAT 97
--- NOTE | 2021-09-12 05:11 | PC.NURSE ---
I assumed care of this patient upon his arrival to bed 11 from the waiting room. He arrived alert and oriented x 3 for evaluation of slurred speech (onset tuesday09/06/21) and left foot numbness on and off for a couple of weeks. Mildly slurred speech is obvious on arrival. There are no other neuro symptoms - no facial droop, no unilateral weakness, no arm drift. Respirations are spontaneous and non-labored, RR 16, room air sat's 95% or better, no cyanosis, pt is speaking in full sentences. Gait steady. Pt is taking PO food and fluids without difficulty. NSR rate 70's on bedside monitor.
[2021-09-12] MEDS: Levothyroxine Sodium 50 MCG TABLET PO (06:37)
[2021-09-12 07:30] VITALS: BP 150/77; PULSE 83
[2021-09-12 07:37] LABS: MANUAL DIFF FLAG NO
[2021-09-12 07:42] LABS: Basophils Percent Auto 0.5 % (0-2); Eosinophils Absolute Auto 0.4 X10*3/uL (0.0-0.4); Eosinophils Percent Auto 6.3 % (0-4); Hematocrit 33.8 % (42.0-52.0); Hemoglobin 11.3 g/dl (14.0-18.0); Imm Gran Abs Auto 0.01 X10*3/uL (0.00-0.03); Imm Gran Pct Auto 0.2 % (0.0-0.4); Lymphocytes Absolute Auto 0.6 X10*3/uL (1.2-4.9); Lymphocytes Percent Auto 10.6 % (20-40); Mean Corpuscular HGB Conc 33.4 g/dl (31.0-36.0); Mean Corpuscular Hemoglobin 30.4 pg (27.0-33.0); Mean Corpuscular Volume 90.9 fL (80.0-98.0); Mean Platelet Volume 9.6 fL (9.4-12.4); Monocytes Absolute Auto 0.6 X10*3/uL (0.1-1.2); Monocytes Percent Auto 11.6 % (2-11); Neutrophils Absolute Auto 3.9 x10*3/uL (2.0-8.3); Neutrophils Percent Auto 70.8 % (45-73); Platelet Count 231 X10*3/uL (160-400); Red Blood Count 3.72 X10*6/uL (4.60-5.80); Red Cell Distribution Width 13.1 % (11.0-16.0); White Blood Count 5.5 X10*3/uL (4.8-10.8)
[2021-09-12] MEDS: Tamsulosin HCL 0.4 MG CAPSULE PO (07:48)
[2021-09-12] MEDS: Sertraline HCL 100 MG TABLET PO (07:48)
[2021-09-12 08:02] LABS: Anion Gap 11 (12-20); Blood Urea Nitrogen 16 mg/dL (9-16); Calcium 9.2 mg/dL (8.4-10.2); Carbon Dioxide 28 mmol/L (22-29); Chloride 103 mmol/L (96-108); Creatinine Clr Calc Pharmacy 92.8; Estimated Glomerular Filt Rate > 60; Glucose Random 96 mg/dL (60-115); Potassium 4.1 mmol/L (3.3-5.1); Sodium 138 mmol/L (135-145)
[2021-09-12] MEDS: Acetaminophen 325 MG TABLET 650 MG PO (08:02)
[2021-09-12 10:08] VITALS: BP 134/79; PULSE 76; RESP 14; O2SAT 97
--- NOTE | 2021-09-12 13:43 | P.DS_ITS ---
DS: Providers Provider Date of Service: 09/12/21 Date of admission: 09/12/21 00:54 Primary care physician: Hardik Paula MD Consults: 09/12/21 00:55 Consult to Neurology Routine Consulting Provider: Todd Hernandez Reason for consultation: TIA Attending physician on discharge: Shaheen [facility] Discharging clinician: Binta York DS: Diagnosis Discharge Diagnosis (1) Slurred speech: Status: Acute DS: Summary Hospital Course Hospital Course: 71-year-old male with a past medical history of hypertension, hypothyroidism, BPH, depression presented to the hospital with a chief complaint of slurred speech.? Symptoms currently resolved.? Admitted for TIA.? TIA type symptoms with slurred speech. Present for over a week. Less likely TIA due to prolonged symptoms. ?No focal weakness on examination.?CT head showed no acute findings, no significant carotid stenosis. Neurology consulted no need for urgent MRI, may be performed outpatient as per PCP. Started on baby aspirin and continue statin. Time Spent with Patient Time attestation: Total time spent providing and/or coordinating discharge services: Discharge coordination time: Greater than 30 minutes Quality: Stroke Does the patient have a stroke diagnosis?: No Physical Exam Verdana 4l Vital Signs: Verdana 4d Verdana 4d Vital Signs: Verdana 4d Verdana 4Bd Last Vital Signs Verdana 4d Geriatric Personal Care Aide New 4d Geriatric Personal Care Aide New 4d Temp 98.8 F 09/12/21 01:37 Geriatric Personal Care Aide New 4d Pulse 76 09/12/21 10:08 Geriatric Personal Care Aide NewNew 4d Resp 14 09/12/21 10:08 BP 134/79 09/12/21 10:08 Pulse Ox 97 09/12/21 10:08 BMI result Body Mass Index 23.6 Appearing in no acute distress head is normocephalic atraumatic eyes pupils are PERRLA sclera is anicteric mouth throat mucous membranes are intact and moist neck is supple no lymphadenopathy, no JVD noted lung sounds are clear to auscultation heart regular rate rhythm, clear S1, S2 positive bowel sounds, abdomen is soft, nontender neuro patient is alert x3, no focal deficits DS: Data Data Completed and Pending Labs on day of discharge: Laboratory Results - last 24 hr 09/11/21 09/11/21 09/11/21 17:59 17:59 17:59 WBC 8.1 RBC 3.72 L Hgb 11.5 L Hct 33.7 L MCV 90.6 MCH 30.9 MCHC 34.1 RDW 13.1 Plt Count 240 MPV 9.1 L Immature Gran % (Auto) 0.4 Neut % (Auto) 81.3 H Lymph % (Auto) 7.3 L [place] % (Auto) 8.0 Eos % (Auto) 2.6 Baso % (Auto) 0.4 Lymph # (Auto) 0.6 L [place] # (Auto) 0.7 Eos # (Auto) 0.2 Baso # (Auto) 0.0 Abs Immat Gran (auto) 0.03 Absolute Neuts (auto) 6.6 Absolute Nucleated RBC 0.000 Nucleated RBC % (auto) 0.0 PT 11.2 INR 1.0 D-Dimer High Sensitivty < 150 Sodium 137 Potassium 4.6 Chloride 101 Carbon Dioxide 28 Anion Gap 13 BUN 23 H Creatinine 0.78 Estim Creat Clear Calc 88.1 Estimated GFR > 60 Random Glucose 108 Calcium 9.8 D Total Bilirubin < 0.2 AST 30 D ALT 34 Alkaline Phosphatase 43 D Troponin I High Sens Total Protein 7.0 Albumin 4.4 Urine Color Urine Appearance Urine pH Ur Specific Lorraine Urine Protein Urine Glucose (UA) Urine Ketones Urine Blood Urine Nitrite Ur Leukocyte Esterase COVID-19 ([facility]) COVID-[facility] Group Com 09/11/21 09/11/21 09/12/21 17:59 17:59 01:41 WBC RBC Hgb Hct MCV MCH MCHC RDW Plt Count MPV Immature Gran % (Auto) Neut % (Auto) Lymph % (Auto) [place] % (Auto) Eos % (Auto) Baso % (Auto) Lymph # (Auto) [place] # (Auto) Eos # (Auto) Baso # (Auto) Abs Immat Gran (auto) Absolute Neuts (auto) Absolute Nucleated RBC Nucleated RBC % (auto) PT INR D-Dimer High Sensitivty Sodium Potassium Chloride Carbon Dioxide Anion Gap BUN Creatinine Estim Creat Clear Calc Estimated GFR Random Glucose Calcium Total Bilirubin AST ALT Alkaline Phosphatase Troponin I High Sens 10.7 Total Protein Albumin Urine Color YELLOW Urine Appearance CLEAR Urine pH 6.0 Ur Specific Lorraine 1.015 Urine Protein NEG Urine Glucose (UA) NEG Urine Ketones 15 Urine Blood NEG Urine Nitrite NEG Ur Leukocyte Esterase NEG COVID-19 ([facility]IS) Negative COVID-19 Clin Com See Note 09/12/21 09/12/21 07:15 07:15 WBC 5.5 RBC 3.72 L Hgb 11.3 L Hct 33.8 L MCV 90.9 MCH 30.4 MCHC 33.4 RDW 13.1 Plt Count 231 MPV 9.6 Immature Gran % (Auto) 0.2 Neut % (Auto) 70.8 Lymph % (Auto) 10.6 L [place] % (Auto) 11.6 H Eos % (Auto) 6.3 H Baso % (Auto) 0.5 Lymph # (Auto) 0.6 L [place] # (Auto) 0.6 Eos # (Auto) 0.4 Baso # (Auto) 0.0 Abs Immat Gran (auto) 0.01 Absolute Neuts (auto) 3.9 Absolute Nucleated RBC 0.000 Nucleated RBC % (auto) 0.0 PT INR D-Dimer High Sensitivty Sodium 138 Potassium 4.1 Chloride 103 Carbon Dioxide 28 Anion Gap 11 L BUN 16 Creatinine 0.74 Estim Creat Clear Calc 92.8 Estimated GFR > 60 Random Glucose 96 Calcium 9.2 D Total Bilirubin AST ALT Alkaline Phosphatase Troponin I High Sens Total Protein Albumin Urine Color Urine Appearance Urine pH Ur Specific Lorraine Urine Protein Urine Glucose (UA) Urine Ketones Urine Blood Urine Nitrite Ur Leukocyte Esterase COVID-19 ([facility]) COVID-19 Clin Com Discharge Plan Discharge Anticipated Discharge Date/Time: 09/12/21 13:34 Patient Disposition: Home, Self-Care Discharge Diagnosis: Slurred speech Referrals: Todd Hernandez MD [Physician] - 1 Week (Consider outpatient MRI if symptoms persist ) Hardik Paula MD [Primary Care Provider] - 1 Week Discharge Medications: New aspirin 81 mg tablet,chewable 81 mg PO DAILY Qty: 30 RF: 0 Continued tolterodine 4 mg capsule,extended release 24hr 4 mg PO .Q.a.m. 30 Days Qty: 30 RF: 6 sertraline 100 mg tablet 100 mg PO DAILY RF: 0 levothyroxine 50 mcg tablet 20 mcg PO DAILY RF: 0 simvastatin 20 mg tablet 20 mg PO DAILY RF: 0 finasteride 5 mg tablet 5 mg PO DAILY 90 Days Qty: 90 RF: 2 tamsulosin 0.4 mg capsule 0.4 mg PO BEDTIME 90 Days Qty: 90 RF: 1 Discharge Orders: Discharge Order (Routine); Ordered 09/12/21 Ordered By: Binta York Diet: advance to usual diet Activity on Discharge: As tolerated Stand Alone Forms: Patient Portal Discharge page Care Plan Goals: Resolution of symptoms Health Concerns: Slurred speech Plan of Treatment: You were admitted with slurred speech that has significantly improved. All amirah gnostic imaging performed do not correlate with your symptoms. It does not appear that you had a stroke or mini stroke. You can follow up with your primary care provider for an outpatient MRI if further follow up is needed. Your were started on a daily aspirin Assessment: See discharge summary
[2021-09-12 14:02] VITALS: BP 142/60; PULSE 83; RESP 16; O2SAT 98
== END 2021-09-12 18:00 | disposition home or self-care (01) ==
LOC: HO.ED 09-12 00:31 → HO.EDOVER 09-12 00:59 → HO.S3 09-12 17:24
PROVIDERS: Student in an Organized Health Care Education/Training Program; Admitting Provider Hospitalist; Emergency Provider Emergency Medicine; PCP Internal Medicine; Visit Provider Nurse Practitioner Acute Care
DX: R47.81 Slurred speech (principal); R51.9 Headache, unspecified; M79.662 Pain in left lower leg; M79.661 Pain in right lower leg; I10 Essential (primary) hypertension; E03.9 Hypothyroidism, unspecified; N40.0 Benign prostatic hyperplasia without lower urinary tract symptoms; R97.20 Elevated prostate specific antigen [PSA]; F32.A Depression, unspecified; Z20.822 Contact with and (suspected) exposure to COVID-19; Z88.2 Allergy status to sulfonamides; Z79.899 Other long term (current) drug therapy
CPT/HCPCS: 36415; 70450; 71045; 80048; 80053; 81003; 84484; 85025; 85379; 85610; 87635; 93005; 93880; 97161; 99218; 99285

== ENCOUNTER 2021-10-27 08:58 | Outpatient (REF) | payer MEDICARE, OTHER, SELFPAY ==
[2021-10-27 10:50] LABS: Prostate Specific Antigen 0.25 ng/mL (<0.05-4.0)
[2021-10-31 14:25] LABS: Testosterone, Total 6 ng/dL (250-1100)
== END 2021-10-27 08:59 | disposition home or self-care (01) ==
LOC: HO.10HDL 08:58
PROVIDERS: Visit Provider Urology
DX: Z12.5 Encounter for screening for malignant neoplasm of prostate (principal); C61 Malignant neoplasm of prostate
CPT/HCPCS: 36415; 84153; 84403

== ENCOUNTER → 2021-11-06 14:47 | Outpatient (BNVA) | payer MEDICARE, OTHER, SELFPAY | PROVIDERS: PCP Internal Medicine; Visit Provider Urology | DX: C61 Malignant neoplasm of prostate (principal) | CPT/HCPCS: 96402; 99212; J9217 ==

== ENCOUNTER 2022-01-11 09:52 | Inpatient (IN) | payer MEDICARE, MEDICAID, SELFPAY ==
--- NOTE | ~2022-01-11 | CT_ITS ---
EXAMINATION: CT ABDOMEN AND PELVIS WITHOUT AND WITH CONTRAST CLINICAL INFORMATION: Rectal bleeding. COMPARISON: CT of the abdomen and pelvis done on 10/17/2020. TECHNIQUE: Multidetector volumetric imaging was performed of the abdomen and pelvis before and after the IV administration of 80 mL of Omnipaque 350 intravenous contrast. Sagittal and coronal reformatted images were obtained on the technologist's workstation. This CT examination was performed using dose optimization techniques as appropriate, variously including the following: *Automated exposure control *Adjustment of mA and/or kV according to patient size (this includes techniques or standardized protocols for targeted exams where dose is matched to indication/reason for exam; i.e. extremities or head) *Use of iterative reconstruction technique DLP: 1131 mGy-cm FINDINGS: LUNG BASES: The visualized lung bases are unremarkable. LIVER, GALLBLADDER, AND BILIARY TREE: The liver is normal in size, shape, and attenuation. No focal hepatic lesion or biliary ductal dilatation is present. The gallbladder is unremarkable with no evidence of radiopaque gallstones, gallbladder wall thickening, or obvious pericholecystic inflammatory changes. PANCREAS: Unremarkable SPLEEN: Unremarkable ADRENAL GLANDS: Unremarkable KIDNEYS AND URETERS: The kidneys are normal in size, shape, and attenuation. No hydronephrosis, hydroureter, or calculi seen. No perinephric stranding. Subcentimeter circumscribed cortical hypodensities are present bilaterally, likely represent cortical renal cysts. BLADDER: Unremarkable GASTROINTESTINAL TRACT: There is no evidence of any acute lower GI tract bleeding identified. Since fecal residual is noted throughout the entire large bowel. Mild colonic diverticulosis is present within the descending and sigmoid colon without any CT features of acute diverticulitis. Appendicolith is present within the appendix which is located within the right mid abdomen without any inflammatory changes. Multiple lymph nodes are noted within the right lower mesentery. The stomach and the small bowel loops are decompressed. Incidental note is made of asymmetric circumferential thickening involving the posterior wall of the rectum and anal canal, may represent adherent fecal matter versus mass. Clinical correlation as well as direct visualization as appropriate is recommended. There is no fat plane noted between the prostate and anterior wall of the rectum. The distal small bowel loops are remarkable for presence of mild mucosal thickening and subtle signs of small bowel feces sign ([id number]:16), may represent changes secondary to slow transit versus subacute obstruction. ABDOMINAL WALL: Postsurgical changes of prior ventral hernia repair is noted within the lower abdomen without CT features of disease recurrence. LYMPH NODES: Normal VASCULAR: Diffuse atherosclerotic disease of the aorta and is branches without aneurysm formation. PELVIC VISCERA: The prostate is enlarged, appears heterogeneous, shows parenchymal calcification and interval placement of radiation seeds which are new since prior study dated 10/17/2020. There are no definite periprosthetic lymphadenopathy or disease extension to the lateral pelvic wall. No evidence of any free fluid and/or free air. OSSEOUS STRUCTURES: Solitary focal area of sclerosis is present at L4, appear similar to prior study dated 10/17/2020. CT/CT gi bleed abd pel wo/w con IMPRESSION: 1. No CT evidence of any active/acute lower gastrointestinal tract hemorrhage present. Specifically, the etiology for rectal bleeding is not evident on these images. 2. Presence of small bowel feces sign is noted within the distal small bowel loops, new since prior study dated 10/17/2020, may represent subacute/low-grade distal small bowel obstruction or slow transit/motility disorder. 3. Nonspecific asymmetric mural thickening is noted within the rectum and anal canal involving the posterior wall, may represent adherent fecal matter versus mass. Clinical correlation as well as direct visualization as appropriate is recommended. Note is made of absence of fat plane between the prostate and the anterior wall of the rectum and presence of radiation seeds within the prostate. There are radiation seeds are new since 10/17/2020. Multiple lymph nodes are noted within the right lower mesentery. 4. Postsurgical changes of prior ventral hernia repair without any CT features of local disease recurrence. 5. Solitary focal area of sclerosis is present involving L4 vertebral body, appears similar to prior study dated 10/17/2020.
[2022-01-11 10:09] VITALS: BP 154/83; PULSE 82; RESP 18; TEMP 36.3; O2SAT 97; BMI 23.6
[2022-01-11 13:18] VITALS: BP 143/71; PULSE 69; RESP 16; TEMP 36.5; O2SAT 98
--- NOTE | 2022-01-11 13:36 | ED.GIBLEED ---
HPI - GI Bleed General Chief complaint: GI Bleed Stated complaint: Blood in stool Time Seen by Provider: 01/11/22 13:21 Source: patient Mode of arrival: ambulatory Limitations: no limitations History of Present Illness HPI Narrative: 71-year-old male with a history of prostate cancer status post radiation therapy (on HRT), hypertension, hypothyroidism, BPH, depression here with reports of rectal bleeding for the last 4 days. Patient reports he has dark maroon-colored stools several times daily. No nausea, vomiting, fevers, chills. Patient has had some abdominal cramping that he associates when he has a bowel movement. Patient is on intermittent aspirin for aches and pains. No additional anticoagulation Patient also notes some difficulty with swallowing solids foods get stuck at times x months Related Data Home Medications Medication Instructions Recorded Confirmed levothyroxine 50 mcg tablet 50 mcg PO DAILY 09/11/20 09/12/21 sertraline 100 mg tablet 100 mg PO DAILY 09/11/20 09/12/21 simvastatin 20 mg tablet 20 mg PO DAILY 09/11/20 09/12/21 alprazolam 0.25 mg tablet 1 tab PO BID PRN 01/11/22 01/11/22 [id number] 3.5 3 drp OTIC (EAR) RIGHT QID 01/11/22 mg/mL-10,000 unit/mL-1 % ear solution Previous Rx's Medication Instructions Recorded tolterodine 4 mg capsule,extended 4 mg PO .Q.a.m. 30 Days #30 cap 04/20/21 release 24 hr finasteride 5 mg tablet 5 mg PO DAILY 90 Days #90 tab 04/24/21 aspirin 81 mg chewable tablet 81 mg PO DAILY #30 tab 09/12/21 tamsulosin 0.4 mg capsule 0.4 mg PO BEDTIME 90 Days #90 cap 10/27/21 magnesium citrate 125 mg capsule 250 mg PO BEDTIME 30 Days #60 cap 11/06/21 Allergies Allergy/AdvReac Type Severity Reaction Status Date / Time Sulfa (Sulfonamide Allergy Intermediate RASH Verified 11/06/21 15:18 Antibiotics) [SULFA (SULFONAMIDE ANTIBIOTICS)] sulfa Allergy Unknown hives Uncoded 11/06/21 15:18 Review of Systems Review of Systems: Yes all other systems are reviewed and are negative Constitutional: Constitutional: Reports no additional constitutional complaints, Denies body ache(s), Denies chills, Denies fever(s), Denies headache(s) and Denies weakness Eyes: Eyes: Reports no additional eye complaints and Denies change in vision ENT: Reports system reviewed and no additional complaints, except as documented, Reports dysphagia, Denies dizziness, Denies headache(s), Denies nasal congestion, Denies nasal discharge and Denies neck pain Cardiovascular: Cardiovascular: Reports no additional cardiovascular complaints, Denies chest pain, Denies leg edema and Denies dyspnea Respiratory: Respiratory: Reports no additional respiratory complaints, Denies cough and Denies dyspnea Gastrointestinal: Gastrointestinal: Reports no additional gastrointestinal complaints, Reports abdominal pain, Reports hematochezia, Reports dysphagia, Denies diarrhea, Denies nausea and Denies vomiting Genitourinary: Genitourinary: Denies urinary incontinence Musculoskeletal: Musculoskeletal: Reports no additional musculoskeletal complaints, Denies back pain, Denies arthralgias, Denies joint swelling, Denies neck pain, Denies numbness and Denies tingling Integumentary/Breasts: Skin/Breast: Reports system reviewed and no additional complaints, except as docu and Denies rash Neurologic: Reports system reviewed and no additional complaints, except as documented, Denies Abnormal speech present, Denies dizziness, Denies headache(s), Denies numbness, Denies tingling and Denies weakness PMFSH Past Medical History Attestation statement: The following information was validated with the patient. Source: old records reviewed and nursing notes reviewed Medical History (Updated 01/11/22 @ 17:34 by Silvia Wall NP) Carbuncle of buttock Depression Elevated PSA Epidermal cyst Rectal bleeding Recurrent left inguinal hernia Family History Family History Father No problems noted. Mother Heart valve problem Social History Social History Alcohol intake: never Patient Tobacco Use Status: Never used Tobacco Advance Directives: No Advance Directives Date on File: 06/19/20 Physical Exam Vital Signs: Vital Signs: Last Vital Signs Temp 97.7 F 01/11/22 13:18 Pulse 69 01/11/22 13:18 Resp 16 01/11/22 13:18 BP 143/71 H 01/11/22 13:18 Pulse Ox 98 01/11/22 13:18 BMI result Body Mass Index 23.6 Const: General: cooperative, healthy appearing, comfortable and no acute distress Orientation/consciousness: patient oriented x3 Limitations: no limitations HEENT: Head: Yes normal to inspection Ears: hearing grossly normal bilaterally General nose exam: Normal external nose present Face and sinus: Yes normal facial exam Mouth: Normal oral and palatal mucosa present Throat: Yes posterior oropharynx normal Eyes: General: appearance normal, both eyes and all related structures Pupils: Equal, round and reactive pupils present Neck: Neck: Yes normal visual inspection Chest: Chest palpation & inspection: normal inspection of the chest Resp: Effort & Inspection: normal respiratory effort Auscultation: clear to auscultation bilaterally Cardio: Rate: regular rate Rhythm: regular rhythm Peripheral pulses: Peripheral pulses 2+ throughout GI: Other: clots noted at external rectum-rectal exam shows maroon stool Inspection: Yes normal to inspection Palpation (GI): Soft to palpation and nontender Auscultation: normal bowel sounds Back/Spine/Pelvis: Thoracic/Lumbar Spine: thoracic and lumbar spine normal to inspection Skin: General skin exam: no rashes or lesions noted Neuro: General: patient oriented x3, no focal motor deficits and normal sensation to monofilament Cranial nerves: Yes Equal, round and reactive pupils present Cognition (Neuro): normal cognition Speech: No Abnormal speech present Gait exam (Neuro): Normal gait present Motor exam (neuro): 5/5 motor strength present throughout Extrem: General: Yes normal to inspection Course Course Course Narrative: 71yo male with a history of prostate cancer s/p treatment with radiation therapy here with complaints of rectal bleeding x 4 days. initially had some abdominal pain with bowel movements but none now. On exam rectal shows maroon stool, clots noted externally outside rectum which were evacuated. No focal abdominal pain. VSS. Will check labs, UA, GI bleed study, occult stool. Reevaluation(s) Reevaluation #1: CT shows 1. No CT evidence of any active/acute lower gastrointestinal tract hemorrhage present. Specifically, the etiology for rectal bleeding is not evident on these images. 2. Presence of small bowel feces sign is noted within the distal small bowel loops, new since prior study dated 10/17/2020, may represent subacute/low-grade distal small bowel obstruction or slow transit/motility disorder. 3. Nonspecific asymmetric mural thickening is noted within the rectum and anal canal involving the posterior wall, may represent adherent fecal matter versus mass. Clinical correlation as well as direct visualization as appropriate is recommended. Note is made of absence of fat plane between the prostate and the anterior wall of the rectum and presence of radiation seeds within the prostate. There are radiation seeds are new since 10/17/2020. Multiple lymph nodes are noted within the right lower mesentery. 4. Postsurgical changes of prior ventral hernia repair without any CT features of local disease recurrence. 5. Solitary focal area of sclerosis is present involving L4 vertebral body, appears similar to prior study dated 10/17/2020. ? -Will discuss with GI/general surgery Time: 16:50 Reevaluation #2: patient seen by Dr Silva who examined him. Recommend discussion with GI and admission for colonoscopy. He will follow the patient inpatient. Call out to GI to discuss. Then will discuss with medicine. Time: 17:15 Reevaluation #3: Spoke to Dr. Connell from GI. Recommended observing the patient overnight. He will evaluate the patient in the morning and determine if a prep is needed for colonoscopy on Tuesday. Call out to medicine did discuss for admission -Spoke to Dr Butterfield who accepted admission Time: 18:00 MDM - GI Bleed MDM Narrative Medical decision making narrative: radiation proctitis, gi bleed, malignancy Medical Records Attestation: I reviewed the patient's medical records. Lab Data Attestation: I reviewed the patient's lab results. Result diagrams: 01/11/22 13:45 01/11/22 13:45 Labs: Lab Results 01/11/22 01/11/22 01/11/22 Range/Units 13:45 13:45 13:45 WBC 7.1 (4.8-10.8) X10*3/uL RBC 3.68 L (4.60-5.80) X10*6/uL Hgb 11.2 L (14.0-18.0) g/dl Hct 32.9 L (42.0-52.0) % MCV 89.4 (80.0-98.0) fL MCH 30.4 (27.0-33.0) pg MCHC 34.0 (31.0-36.0) g/dl RDW 13.2 (11.0-16.0) % Plt Count 273 (160-400) X10*3/uL MPV 9.6 (9.4-12.4) fL Immature Gran % (Auto) 0.6 H (0.0-0.4) % Neut % (Auto) 77.4 H (45-73) % Lymph % (Auto) 10.1 L (20-40) % [place] % (Auto) 8.5 (2-11) % Eos % (Auto) 2.8 (0-4) % Baso % (Auto) 0.6 (0-2) % Lymph # (Auto) 0.7 L (1.2-4.9) X10*3/uL [place] # (Auto) 0.6 (0.1-1.2) X10*3/uL Eos # (Auto) 0.2 (0.0-0.4) X10*3/uL Baso # (Auto) 0.0 (0.0-0.2) X10*3/uL Abs Immat Gran (auto) 0.04 H (0.00-0.03) X10*3/uL Absolute Neuts (auto) 5.5 (2.0-8.3) x10*3/uL Absolute Nucleated RBC 0.000 (0.0-0.012) X10*3/uL Nucleated RBC % (auto) 0.0 (0.0-0.2) /100WBC PT 11.3 (9.9-13.0) SEC INR 1.0 (0.9-1.1) Sodium 138 (135-145) mmol/L Potassium 4.5 (3.3-5.1) mmol/L Chloride 101 (96-108) mmol/L Carbon Dioxide 29 (22-29) mmol/L Anion Gap 13 (12-20) BUN 15 (9-16) mg/dL Creatinine 0.76 (0.5-1.4) mg/dL Estim Creat Clear Calc 90.4 Estimated GFR > 60 Random Glucose 94 (60-115) mg/dL Lactic Acid (0.5-2.0) mmol/L Calcium 9.8 D (8.4-10.2) mg/dL Total Bilirubin < 0.2 (0.0-1.0) mg/dL Direct Bilirubin < 0.2 (0.0-0.5) mg/dL AST 25 (5-37) U/L ALT 26 (0-40) U/L Alkaline Phosphatase 48 (39-117) U/L Total Protein 6.8 (6.5-8.0) g/dL Albumin 4.2 (3.5-5.0) g/dL Stool Occult Blood (NEGATIVE) 01/11/22 01/11/22 Range/Units 13:45 13:45 WBC (4.8-10.8) X10*3/uL RBC (4.60-5.80) X10*6/uL Hgb (14.0-18.0) g/dl Hct (42.0-52.0) % MCV (80.0-98.0) fL MCH (27.0-33.0) pg MCHC (31.0-36.0) g/dl RDW (11.0-16.0) % Plt Count (160-400) X10*3/uL MPV (9.4-12.4) fL Immature Gran % (Auto) (0.0-0.4) % Neut % (Auto) (45-73) % Lymph % (Auto) (20-40) % [place] % (Auto) (2-11) % Eos % (Auto) (0-4) % Baso % (Auto) (0-2) % Lymph # (Auto) (1.2-4.9) X10*3/uL [place] # (Auto) (0.1-1.2) X10*3/uL Eos # (Auto) (0.0-0.4) X10*3/uL Baso # (Auto) (0.0-0.2) X10*3/uL Abs Immat Gran (auto) (0.00-0.03) X10*3/uL Absolute Neuts (auto) (2.0-8.3) x10*3/uL Absolute Nucleated RBC (0.0-0.012) X10*3/uL Nucleated RBC % (auto) (0.0-0.2) /100WBC PT (9.9-13.0) SEC INR (0.9-1.1) Sodium (135-145) mmol/L Potassium (3.3-5.1) mmol/L Chloride (96-108) mmol/L Carbon Dioxide (22-29) mmol/L Anion Gap (12-20) BUN (9-16) mg/dL Creatinine (0.5-1.4) mg/dL Estim Creat Clear Calc Estimated GFR Random Glucose (60-115) mg/dL Lactic Acid 1.0 (0.5-2.0) mmol/L Calcium (8.4-10.2) mg/dL Total Bilirubin (0.0-1.0) mg/dL Direct Bilirubin (0.0-0.5) mg/dL AST (5-37) U/L ALT (0-40) U/L Alkaline Phosphatase (39-117) U/L Total Protein (6.5-8.0) g/dL Albumin (3.5-5.0) g/dL Stool Occult Blood POSITIVE (NEGATIVE) Imaging Data CT scan - abdomen: Attestation: I personally reviewed and interpreted this imaging study as follows: Radiologist's impression: [place] [id number] CT Scan Report Signed Patient: Jonh Harris Jr MR#: [id number] : 1950 Acct:[id number] Age/Sex: 71 / M ADM Date: 01/11/22 Loc: .ED Attending Dr: Ordering Physician: Silvia Wall NP Date of Service: 01/11/22 Procedure(s): CT gi bleed abd pel wo/w con Accession Number(s): [id number] cc: Silvia Wall NP~ EXAMINATION: CT ABDOMEN AND PELVIS WITHOUT AND WITH CONTRAST? CLINICAL INFORMATION: Rectal bleeding.? COMPARISON: CT of the abdomen and pelvis done on 10/17/2020.? TECHNIQUE: Multidetector volumetric imaging was performed of the abdomen and pelvis before and after the IV administration of 80 mL of Omnipaque 350 intravenous contrast. Sagittal and coronal reformatted images were obtained on the technologist's workstation. This CT examination was performed using dose optimization techniques as appropriate, variously including the following: *Automated exposure control *Adjustment of mA and/or kV according to patient size (this includes techniques or standardized protocols for targeted exams where dose is matched to indication/reason for exam; i.e. extremities or head) *Use of iterative reconstruction technique DLP: 1131 mGy-cm FINDINGS: LUNG BASES: The visualized lung bases are unremarkable.? LIVER, GALLBLADDER, AND BILIARY TREE: The liver is normal in size, shape, and attenuation. No focal hepatic lesion or biliary ductal dilatation is present. The gallbladder is unremarkable with no evidence of radiopaque gallstones, gallbladder wall thickening, or obvious pericholecystic inflammatory changes.? PANCREAS: Unremarkable? SPLEEN: Unremarkable? ADRENAL GLANDS: Unremarkable? KIDNEYS AND URETERS: The kidneys are normal in size, shape, and attenuation. No hydronephrosis, hydroureter, or calculi seen. No perinephric stranding. Subcentimeter circumscribed cortical hypodensities are present bilaterally, likely represent cortical renal cysts. BLADDER: Unremarkable? GASTROINTESTINAL TRACT: There is no evidence of any acute lower GI tract bleeding identified. Since fecal residual is noted throughout the entire large bowel. Mild colonic diverticulosis is present within the descending and sigmoid colon without any CT features of acute diverticulitis. Appendicolith is present within the appendix which is located within the right mid abdomen without any inflammatory changes. Multiple lymph nodes are noted within the right lower mesentery. The stomach and the small bowel loops are decompressed. Incidental note is made of asymmetric circumferential thickening involving the posterior wall of the rectum and anal canal, may represent adherent fecal matter versus mass. Clinical correlation as well as direct visualization as appropriate is recommended. There is no fat plane noted between the prostate and anterior wall of the rectum. The distal small bowel loops are remarkable for presence of mild mucosal thickening and subtle signs of small bowel feces sign (159:16), may represent changes secondary to slow transit versus subacute obstruction. ABDOMINAL WALL: Postsurgical changes of prior ventral hernia repair is noted within the lower abdomen without CT features of disease recurrence.? LYMPH NODES: Normal VASCULAR: Diffuse atherosclerotic disease of the aorta and is branches without aneurysm formation. PELVIC VISCERA: The prostate is enlarged, appears heterogeneous, shows parenchymal calcification and interval placement of radiation seeds which are new since prior study dated 10/17/2020. There are no definite periprosthetic lymphadenopathy or disease extension to the lateral pelvic wall. No evidence of any free fluid and/or free air. OSSEOUS STRUCTURES: Solitary focal area of sclerosis is present at L4, appear similar to prior study dated 10/17/2020.? CT/CT gi bleed abd pel wo/w con IMPRESSION: ? 1. No CT evidence of any active/acute lower gastrointestinal tract hemorrhage present. Specifically, the etiology for rectal bleeding is not evident on these images. 2. Presence of small bowel feces sign is noted within the distal small bowel loops, new since prior study dated 10/17/2020, may represent subacute/low-grade distal small bowel obstruction or slow transit/motility disorder. 3. Nonspecific asymmetric mural thickening is noted within the rectum and anal canal involving the posterior wall, may represent adherent fecal matter versus mass. Clinical correlation as well as direct visualization as appropriate is recommended. Note is made of absence of fat plane between the prostate and the anterior wall of the rectum and presence of radiation seeds within the prostate. There are radiation seeds are new since 10/17/2020. Multiple lymph nodes are noted within the right lower mesentery. 4. Postsurgical changes of prior ventral hernia repair without any CT features of local disease recurrence. 5. Solitary focal area of sclerosis is present involving L4 vertebral body, appears similar to prior study dated 10/17/2020. Discharge Plan Discharge Clinical Impression: Rectal bleeding Patient Disposition: Admitted As Inpatient
[2022-01-11 13:51] LABS: MANUAL DIFF FLAG NO
[2022-01-11 13:54] LABS: OBS1 POSITIVE (NEGATIVE)
[2022-01-11 13:55] LABS: OBS Int Ctl Valid YES
[2022-01-11 13:56] LABS: Basophils Percent Auto 0.6 % (0-2); Eosinophils Absolute Auto 0.2 X10*3/uL (0.0-0.4); Eosinophils Percent Auto 2.8 % (0-4); Hematocrit 32.9 % (42.0-52.0); Hemoglobin 11.2 g/dl (14.0-18.0); Imm Gran Abs Auto 0.04 X10*3/uL (0.00-0.03); Imm Gran Pct Auto 0.6 % (0.0-0.4); Lymphocytes Absolute Auto 0.7 X10*3/uL (1.2-4.9); Lymphocytes Percent Auto 10.1 % (20-40); Mean Corpuscular Hemoglobin 30.4 pg (27.0-33.0); Mean Corpuscular Volume 89.4 fL (80.0-98.0); Mean Platelet Volume 9.6 fL (9.4-12.4); Monocytes Absolute Auto 0.6 X10*3/uL (0.1-1.2); Monocytes Percent Auto 8.5 % (2-11); Neutrophils Absolute Auto 5.5 x10*3/uL (2.0-8.3); Neutrophils Percent Auto 77.4 % (45-73); Platelet Count 273 X10*3/uL (160-400); Red Blood Count 3.68 X10*6/uL (4.60-5.80); Red Cell Distribution Width 13.2 % (11.0-16.0); White Blood Count 7.1 X10*3/uL (4.8-10.8)
[2022-01-11 14:05] LABS: Prothrombin Time 11.3 SEC (9.9-13.0)
[2022-01-11 14:18] LABS: Alanine Aminotransferase 26 U/L (0-40); Albumin Level 4.2 g/dL (3.5-5.0); Alkaline Phosphatase 48 U/L (39-117); Anion Gap 13 (12-20); Aspartate Amino Transferase 25 U/L (5-37); Bilirubin Direct < 0.2 mg/dL (0.0-0.5); Bilirubin Total < 0.2 mg/dL (0.0-1.0); Blood Urea Nitrogen 15 mg/dL (9-16); Calcium 9.8 mg/dL (8.4-10.2); Carbon Dioxide 29 mmol/L (22-29); Chloride 101 mmol/L (96-108); Creatinine Clr Calc Pharmacy 90.4; Estimated Glomerular Filt Rate > 60; Glucose Random 94 mg/dL (60-115); Potassium 4.5 mmol/L (3.3-5.1); Sodium 138 mmol/L (135-145); Total Protein 6.8 g/dL (6.5-8.0)
[2022-01-11] MEDS: iohexoL 350 MG/ML 100 ML INFUS..BTL IV (15:15)
--- NOTE | 2022-01-11 17:15 | P.CONGS_ITS ---
History of Present Illness Consult details Consult date: 01/11/22 Narrative: 71M referred to me for passage of blood per rectum. He says that for the past 4 days, he has been noticing dark maroon blood with his bowel movements. He says he notices this on wiping as well. He decided to come to the ED this morning after noticing this again with BMs earlier. He denies any pain in the anus. He denies any pain with passage of stools. He has a hx of prostate cancer and ahd radiation for this last year from November to January 2021. He says he ahd subsequent diarrhea for a time after radiation t reatmeants but did not have bleeding per rectum. He says he does take NSAIDs frequently for his sinus headache. He denies nausea or vomitting. He denies any colonoscopy in the past as he had refused this before. Review of Systems Constitutional: Constitutional: Denies chills and Denies fever(s) Cardiovascular: Cardiovascular: Denies chest pain, Denies dyspnea and Denies dyspnea on exertion Respiratory: Respiratory: Denies cough, Denies dyspnea and Denies dyspnea on exertion Gastrointestinal: Gastrointestinal: Reports hematochezia, Denies change in bowel habits and Reports diarrhea Genitourinary: Genitourinary: Denies hematuria and Denies difficulty urinating Musculoskeletal: Musculoskeletal: Denies back pain and Denies limited range of motion Neurologic: Denies focal weakness and Denies convulsions Comments: was admitted for slurring of speech in September 2021, told this was not from a CVA Psychiatric: Psychiatric: Denies depression and Denies mood swings PMFSH Past Medical History Medical History Carbuncle of buttock Depression Elevated PSA Epidermal cyst Rectal bleeding Recurrent left inguinal hernia Family History Family History Father No problems noted. Mother Heart valve problem Social History Social History Household Members: Family Housing: House Do you presently have visiting nurse or other home services: No Alcohol intake: never Patient Tobacco Use Status: Never used Tobacco e-Cigarette/Vaping Use: Never Used Second Hand Smoke Exposure: No Advance Directives Date on File: 06/19/20 service: No Current occupational status: retired [employer] Allergies Allergy/AdvReac Type Severity Reaction Status Date / Time Sulfa (Sulfonamide Allergy Intermediate RASH Verified 11/06/21 15:18 Antibiotics) [SULFA (SULFONAMIDE ANTIBIOTICS)] sulfa Allergy Unknown hives Uncoded 11/06/21 15:18 Home Medications Medication Instructions Recorded Confirmed Last Taken Type levothyroxine 50 mcg tablet 50 mcg PO DAILY 09/11/20 01/11/22 01/11/22 History sertraline 100 mg tablet 50 mg PO DAILY 09/11/20 01/11/22 01/11/22 History simvastatin 20 mg tablet 20 mg PO BEDTIME 09/11/20 01/11/22 01/10/22 History acetaminophen 325 mg tablet 650 mg PO Q6H PRN 01/11/22 01/11/22 01/11/22 History (Tylenol) alprazolam 0.25 mg tablet 1 tab PO BID PRN 01/11/22 01/11/22 Unknown History loratadine 10 mg tablet (Claritin) 10 mg PO DAILY 01/11/22 01/11/22 Unknown History [id number]-[id number]-obdiymghe 3.5 3 drp OTIC (EAR) RIGHT QID 01/11/22 01/11/22 Unknown History mg/mL-10,000 unit/mL-1 % ear solution Physical Exam Vital Signs: Vital Signs: Last Vital Signs Temp 97.7 F 01/11/22 13:18 Pulse 69 01/11/22 13:18 Resp 16 01/11/22 13:18 BP 143/71 H 01/11/22 13:18 Pulse Ox 98 01/11/22 13:18 BMI result Body Mass Index 23.6 Const: General: comfortable and no acute distress Orientation/consciousness: patient oriented x3 Neck: Neck: Yes no lymphadenopathy Resp: Auscultation: clear to auscultation bilaterally Cardio: Rhythm: regular rhythm GI: Other: rectal exam - no palpable masses, no tenderness or induration, dark maroon blood seen on exam finger, no fresh blood, no anal tenderness, no fecal impaction Palpation (GI): Soft to palpation, nontender and no guarding Neuro: General: patient oriented x3 Results Labs Result diagrams: 01/12/22 05:45 01/12/22 05:45 Labs: Abnormal lab results 01/11/22 Range/Units 13:45 RBC 3.68 L (4.60-5.80) X10*6/uL Hgb 11.2 L (14.0-18.0) g/dl Hct 32.9 L (42.0-52.0) % Immature Gran % (Auto) 0.6 H (0.0-0.4) % Neut % (Auto) 77.4 H (45-73) % Lymph % (Auto) 10.1 L (20-40) % Lymph # (Auto) 0.7 L (1.2-4.9) X10*3/uL Abs Immat Gran (auto) 0.04 H (0.00-0.03) X10*3/uL Short CBC 01/11/22 Range/Units 13:45 WBC 7.1 (4.8-10.8) X10*3/uL Hgb 11.2 L (14.0-18.0) g/dl Hct 32.9 L (42.0-52.0) % Plt Count 273 (160-400) X10*3/uL BMP 01/11/22 13:45 Sodium 138 Potassium 4.5 Chloride 101 Carbon Dioxide 29 BUN 15 Creatinine 0.76 Calcium 9.8 D Liver Function 01/11/22 Range/Units 13:45 Total Bilirubin < 0.2 (0.0-1.0) mg/dL Direct Bilirubin < 0.2 (0.0-0.5) mg/dL AST 25 (5-37) U/L ALT 26 (0-40) U/L Alkaline Phosphatase 48 (39-117) U/L Albumin 4.2 (3.5-5.0) g/dL All other labs normal. Imaging Additional studies: Laboratory Results WBC 7.1 X10*3/uL (4.8-10.8) 01/11/22 13:45 RBC 3.68 X10*6/uL (4.60-5.80) L 01/11/22 13:45 Hgb 11.2 g/dl (14.0-18.0) L 01/11/22 13:45 Hct 32.9 % (42.0-52.0) L 01/11/22 13:45 MCV 89.4 fL (80.0-98.0) 01/11/22 13:45 MCH 30.4 pg (27.0-33.0) 01/11/22 13:45 MCHC 34.0 g/dl (31.0-36.0) 01/11/22 13:45 RDW 13.2 % (11.0-16.0) 01/11/22 13:45 Plt Count 273 X10*3/uL (160-400) 01/11/22 13:45 MPV 9.6 fL (9.4-12.4) 01/11/22 13:45 Immature Gran % (Auto) 0.6 % (0.0-0.4) H 01/11/22 13:45 Neut % (Auto) 77.4 % (45-73) H 01/11/22 13:45 Lymph % (Auto) 10.1 % (20-40) L 01/11/22 13:45 [place] % (Auto) 8.5 % (2-11) 01/11/22 13:45 Eos % (Auto) 2.8 % (0-4) 01/11/22 13:45 Baso % (Auto) 0.6 % (0-2) 01/11/22 13:45 Lymph # (Auto) 0.7 X10*3/uL (1.2-4.9) L 01/11/22 13:45 [place] # (Auto) 0.6 X10*3/uL (0.1-1.2) 01/11/22 13:45 Eos # (Auto) 0.2 X10*3/uL (0.0-0.4) 01/11/22 13:45 Baso # (Auto) 0.0 X10*3/uL (0.0-0.2) 01/11/22 13:45 Abs Immat Gran (auto) 0.04 X10*3/uL (0.00-0.03) H 01/11/22 13:45 Absolute Neuts (auto) 5.5 x10*3/uL (2.0-8.3) 01/11/22 13:45 Absolute Nucleated RBC 0.000 X10*3/uL (0.0-0.012) 01/11/22 13:45 Nucleated RBC % (auto) 0.0 /100WBC (0.0-0.2) 01/11/22 13:45 PT 11.3 SEC (9.9-13.0) 01/11/22 13:45 INR 1.0 (0.9-1.1) 01/11/22 13:45 Sodium 138 mmol/L (135-145) 01/11/22 13:45 Potassium 4.5 mmol/L (3.3-5.1) 01/11/22 13:45 Chloride 101 mmol/L (96-108) 01/11/22 13:45 Carbon Dioxide 29 mmol/L (22-29) 01/11/22 13:45 Anion Gap 13 (12-20) 01/11/22 13:45 BUN 15 mg/dL (9-16) 01/11/22 13:45 Creatinine 0.76 mg/dL (0.5-1.4) 01/11/22 13:45 Estim Creat Clear Calc 90.4 01/11/22 13:45 Estimated GFR > 60 01/11/22 13:45 Random Glucose 94 mg/dL (60-115) 01/11/22 13:45 Lactic Acid 1.0 mmol/L (0.5-2.0) 01/11/22 13:45 Calcium 9.8 mg/dL (8.4-10.2) D 01/11/22 13:45 Total Bilirubin < 0.2 mg/dL (0.0-1.0) 01/11/22 13:45 Direct Bilirubin < 0.2 mg/dL (0.0-0.5) 01/11/22 13:45 AST 25 U/L (5-37) 01/11/22 13:45 ALT 26 U/L (0-40) 01/11/22 13:45 Alkaline Phosphatase 48 U/L (39-117) 01/11/22 13:45 Total Protein 6.8 g/dL (6.5-8.0) 01/11/22 13:45 Albumin 4.2 g/dL (3.5-5.0) 01/11/22 13:45 Stool Occult Blood POSITIVE (NEGATIVE) 01/11/22 13:45 Impressions Abdomen/Pelvis CT 01/11/22 15:13 IMPRESSION: 1. No CT evidence of any active/acute lower gastrointestinal tract hemorrhage present. Specifically, the etiology for rectal bleeding is not evident on these images. 2. Presence of small bowel feces sign is noted within the distal small bowel loops, new since prior study dated 10/17/2020, may represent subacute/low-grade distal small bowel obstruction or slow transit/motility disorder. 3. Nonspecific asymmetric mural thickening is noted within the rectum and anal canal involving the posterior wall, may represent adherent fecal matter versus mass. Clinical correlation as well as direct visualization as appropriate is recommended. Note is made of absence of fat plane between the prostate and the anterior wall of the rectum and presence of radiation seeds within the prostate. There are radiation seeds are new since 10/17/2020. Multiple lymph nodes are noted within the right lower mesentery. 4. Postsurgical changes of prior ventral hernia repair without any CT features of local disease recurrence. 5. Solitary focal area of sclerosis is present involving L4 vertebral body, appears similar to prior study dated 10/17/2020. Assessment and Plan (1) Rectal bleeding: Status: Acute He describes passing dark maroon blood bowel movements for the past 4 days. He denies any recent changes with his bowel habits. I have reviewed his CAT scan and this does not reveal any obvious etiology. He does have question of t hickening of the wall versus fecal material. Rectal exam does not reveal any mass I have recommended GI to be involved for endoscopy and colonoscopy. The patient has never had any colonoscopy in the past. He also states that he takes and this frequently for sinus pain. His hemoglobin is 11.2 at this time. I will follow along while he is in the hospital. He is currently hemodynamically stable and appears comfortable. Plan He describes passage of dark maroon blood with BMs the apst [address] scan does not reveal an obvious source. Digital rectal exam does not show an obvious mass. He has never had a colonoscopy in the past, so I would recommend going ahead with a colonoscopy, as well as an EGD to workup for a source of bleeding. He takes NSAIDs frequently for sinus pain so an upper GI source like an ulcer or gastritis needs to be ruled out. I therefore recommend GI consult. He otherwise appears comfortable and hemodynamically stable. His Hg is 11.7 I will foillow along while he is in the hospital. His sister was with him during the discussion. Procedures Date of Service Date of Service: 01/11/22
[2022-01-11 18:15] LABS: COVID-19 Test Negative (Negative); IDNOW Serial# 9DB6401D
--- NOTE | 2022-01-11 18:16 | PHA.MEDREC ---
Pharmacy Consult ? Medication Reconciliation Pharmacy has completed the medication reconciliation. No remarkable issues.
--- NOTE | 2022-01-11 18:31 | PM.IMHP ---
History of Present Illness Date of Service: 01/11/22 Chief Complaint: Rectal bleeding A 71 years old male with PMH of prostate cancer post radiation therapy, hypothyroidism who presents to the hospital with complaint of rectal bleeding for the last 4 days. The patient reports that he started noticing blood with bowel motion almost 4 days ago which was fairly small amount with recurrent. But then he noticed that even with passing gas is having some blood any start wearing underwear which he noticed multiple spots even without going to the bathroom. He denies any chest pain, palpitation, shortness of breath, nausea or vomiting or change in bowel habit. He reports that he had hemorrhoids before and noticed some blood but not to this extent. He reported having radiation therapy that ended in February 2021 with main side effect as diarrhea during the sessions. He denies having any previous colonoscopy done. Hemoglobin was noted to be stable above 11 similar to his previous readings. Advised for further evaluation and treatment. Review of Systems Review of Systems: No fever, chills or weakness No chest pain, palpitation No shortness of breath or coughing No abdominal pain, nausea or vomiting but has rectal bleeding No urinary symptoms No any rash or wounds PMFSH Medical History Carbuncle of buttock Depression Elevated PSA Epidermal cyst Rectal bleeding Recurrent left inguinal hernia Family History Father No problems noted. Mother Heart valve problem Social History Alcohol intake: never Patient Tobacco Use Status: Never used Tobacco Advance Directives: No Advance Directives Date on File: 06/19/20 Meds Allergies Allergy/AdvReac Type Severity Reaction Status Date / Time Sulfa (Sulfonamide Allergy Intermediate RASH Verified 11/06/21 15:18 Antibiotics) [SULFA (SULFONAMIDE ANTIBIOTICS)] sulfa Allergy Unknown hives Uncoded 11/06/21 15:18 Active Medications: Current Medications Pharmacy Consult (Consult Rx Perform Med Rec) 1 each MISCELLANE ONCE PRN PRN Reason: Consult order Home Medications Medication Instructions Recorded Confirmed Last Taken Type levothyroxine 50 mcg tablet 50 mcg PO DAILY 09/11/20 01/11/22 01/11/22 History sertraline 100 mg tablet 50 mg PO DAILY 09/11/20 01/11/22 01/11/22 History simvastatin 20 mg tablet 20 mg PO BEDTIME 09/11/20 01/11/22 01/10/22 History acetaminophen 325 mg tablet 650 mg PO Q6H PRN 01/11/22 01/11/22 01/11/22 History (Tylenol) alprazolam 0.25 mg tablet 1 tab PO BID PRN 01/11/22 01/11/22 Unknown History loratadine 10 mg tablet (Claritin) 10 mg PO DAILY 01/11/22 01/11/22 Unknown History sfkohbrj-pwjknmrqx-kzylelofk 3.5 3 drp OTIC (EAR) RIGHT QID 01/11/22 01/11/22 Unknown History mg/mL-10,000 unit/mL-1 % ear solution Physical Exam Vital Signs and Narrative: Vital Signs: Last Vital Signs Temp 97.7 F 01/11/22 13:18 Pulse 69 01/11/22 13:18 Resp 16 01/11/22 13:18 BP 143/71 H 01/11/22 13:18 Pulse Ox 98 01/11/22 13:18 BMI result Body Mass Index 23.6 Const: Other: Constitutional : Alert, oriented, not in distress Neck : Normal inspection, Supple Cardiovascular : RRR, no JVP, no lower extremity edema Respiratory : fair bilateral air entry, no crackles, wheezes or rhonchi Gastrointestinal: soft, lax, Normal bowel sounds, Non tender, p.r. exam done by ED provider Skin : Warm, Dry Neurological : Alert & oriented x3, No focal deficit , CN 2-12 within normal Results Labs CBC and Chem 7: 01/11/22 13:45 01/11/22 13:45 Labs: Laboratory Results - last 24 hr 01/11/22 01/11/22 01/11/22 13:45 13:45 13:45 MCV 89.4 MCH 30.4 MCHC 34.0 RDW 13.2 Plt Count 273 MPV 9.6 Immature Gran % (Auto) 0.6 H Neut % (Auto) 77.4 H Lymph % (Auto) 10.1 L [place] % (Auto) 8.5 Eos % (Auto) 2.8 Baso % (Auto) 0.6 Lymph # (Auto) 0.7 L [place] # (Auto) 0.6 Eos # (Auto) 0.2 Baso # (Auto) 0.0 Abs Immat Gran (auto) 0.04 H Absolute Neuts (auto) 5.5 Absolute Nucleated RBC 0.000 Nucleated RBC % (auto) 0.0 PT 11.3 INR 1.0 Anion Gap 13 Estim Creat Clear Calc 90.4 Estimated GFR > 60 Random Glucose 94 Lactic Acid Calcium 9.8 D Total Bilirubin < 0.2 Direct Bilirubin < 0.2 AST 25 ALT 26 Alkaline Phosphatase 48 Total Protein 6.8 Albumin 4.2 Stool Occult Blood COVID-19 (LUIS) COVID-19 Chaologix 01/11/22 01/11/22 01/11/22 13:45 13:45 17:35 MCV MCH MCHC RDW Plt Count MPV Immature Gran % (Auto) Neut % (Auto) Lymph % (Auto) [place] % (Auto) Eos % (Auto) Baso % (Auto) Lymph # (Auto) [place] # (Auto) Eos # (Auto) Baso # (Auto) Abs Immat Gran (auto) Absolute Neuts (auto) Absolute Nucleated RBC Nucleated RBC % (auto) PT INR Anion Gap Estim Creat Clear Calc Estimated GFR Random Glucose Lactic Acid 1.0 Calcium Total Bilirubin Direct Bilirubin AST ALT Alkaline Phosphatase Total Protein Albumin Stool Occult Blood POSITIVE COVID-19 (LUIS) Negative COVID-19 Clin Com See Note Imaging Radiologist's Impressions: Impressions Abdomen/Pelvis CT 01/11/22 15:13 IMPRESSION: 1. No CT evidence of any active/acute lower gastrointestinal tract hemorrhage present. Specifically, the etiology for rectal bleeding is not evident on these images. 2. Presence of small bowel feces sign is noted within the distal small bowel loops, new since prior study dated 10/17/2020, may represent subacute/low-grade distal small bowel obstruction or slow transit/motility disorder. 3. Nonspecific asymmetric mural thickening is noted within the rectum and anal canal involving the posterior wall, may represent adherent fecal matter versus mass. Clinical correlation as well as direct visualization as appropriate is recommended. Note is made of absence of fat plane between the prostate and the anterior wall of the rectum and presence of radiation seeds within the prostate. There are radiation seeds are new since 10/17/2020. Multiple lymph nodes are noted within the right lower mesentery. 4. Postsurgical changes of prior ventral hernia repair without any CT features of local disease recurrence. 5. Solitary focal area of sclerosis is present involving L4 vertebral body, appears similar to prior study dated 10/17/2020. Assessment and Plan (1) Rectal bleeding: Status: Acute Plan A 71 years old male with PMH of prostate cancer post radiation therapy, hypothyroidism who presents to the hospital with complaint of rectal bleeding for the last 4 days. Rectal bleeding Hemoglobin stable around 11 CT reporting possible mass like in the rectum but no active bleeding noticed Monitor H and H Check CEA GI evaluation the morning Continue full liquid for now Hypothyroidism Continue levothyroxine HLD continue simvastatin DVT PPX SCDs given active bleeding The patient will need at least overnight hospital stay for evaluation of rectal bleeding and preparation for colonoscopy given possible chance of decompensation or have a massive bleed. Quality Stroke Does the patient have a stroke diagnosis?: No VTE Prior VTE?: No VTE Risk Level:: Medical - moderate - high VTE Device Contraindication: N/A - Device Ordered VTE Drug Contraindication: Treatment Not Indicated
[2022-01-11 18:32] VITALS: BP 156/80; PULSE 18; RESP 71; TEMP 36.7; O2SAT 96
[2022-01-11 22:46] VITALS: BP 147/73; PULSE 68; RESP 18; TEMP 36.3; O2SAT 97
[2022-01-11] MEDS: Atorvastatin Calcium 20 MG TABLET PO (23:05)
--- NOTE | 2022-01-11 23:06 | PC.NURSE ---
patient alert and oriented,resting in bed,call banuelos in place
[2022-01-11] MEDS: 0.9 % Sodium Chloride Flush 3 ML SYRINGE IVFLUSH (23:46)
[2022-01-12] VITALS (7 sets, daily range): BP systolic 118–146; BP diastolic 66–76; PULSE 68–79; RESP 14–18; TEMP 36.1–37.1; O2SAT 95–99; BMI 22.8
[2022-01-12] MEDS: Acetaminophen 325 MG TABLET 650 MG PO ×3 (06:07→18:49)
[2022-01-12 06:37] LABS: Hematocrit 32.9 % (42.0-52.0); Hemoglobin 11.1 g/dl (14.0-18.0); Mean Corpuscular HGB Conc 33.7 g/dl (31.0-36.0); Mean Corpuscular Hemoglobin 29.9 pg (27.0-33.0); Mean Corpuscular Volume 88.7 fL (80.0-98.0); Mean Platelet Volume 9.7 fL (9.4-12.4); Platelet Count 259 X10*3/uL (160-400); Red Blood Count 3.71 X10*6/uL (4.60-5.80); Red Cell Distribution Width 13.2 % (11.0-16.0); White Blood Count 6.1 X10*3/uL (4.8-10.8)
[2022-01-12 06:53] LABS: Anion Gap 13 (12-20); Blood Urea Nitrogen 11 mg/dL (9-16); Calcium 9.6 mg/dL (8.4-10.2); Carbon Dioxide 29 mmol/L (22-29); Chloride 101 mmol/L (96-108); Creatinine Clr Calc Pharmacy 91.9; Estimated Glomerular Filt Rate > 60; Glucose Random 102 mg/dL (60-115); Potassium 4.4 mmol/L (3.3-5.1); Sodium 139 mmol/L (135-145)
[2022-01-12] MEDS: Sertraline HCL 50 MG TABLET PO (08:49)
[2022-01-12] MEDS: Levothyroxine Sodium 50 MCG TABLET PO (08:49)
[2022-01-12] MEDS: Loratadine 10 MG TABLET PO (08:49)
[2022-01-12] MEDS: 0.9 % Sodium Chloride Flush 3 ML SYRINGE IVFLUSH ×2 (08:51→15:39)
--- NOTE | 2022-01-12 10:56 | HO.PM.IMPN ---
Subjective Subjective Date of Service: 01/12/22 Interval History: Seen and evaluated this morning Reported an episode of blood with stool overnight, small amount No other overnight events Review of Systems No fever, chills or weakness No chest pain, palpitation No shortness of breath or coughing No abdominal pain, nausea or vomiting but has rectal bleeding No urinary symptoms No any rash or wounds Physical Exam Vital Signs: Vital Signs: Last Vital Signs Temp 97.5 F 01/12/22 03:07 Pulse 74 01/12/22 07:27 Resp 18 01/12/22 07:27 BP 132/75 01/12/22 07:27 Pulse Ox 96 01/12/22 07:27 BMI result Body Mass Index 22.8 Const: Other: Constitutional : Alert, oriented, not in distress Neck : Normal inspection, Supple Cardiovascular : RRR, no JVP, no lower extremity edema Respiratory : fair bilateral air entry, no crackles, wheezes or rhonchi Gastrointestinal: soft, lax, Normal bowel sounds, Non tender, p.r. exam done by ED provider Skin : Warm, Dry Neurological : Alert & oriented x3, No focal deficit , CN 2-12 within normal Objective Data Active Medications Acetaminophen (Acetaminophen 325 Mg Tablet) 650 mg PO Q6H PRN PRN Reason: Pain, Mild (Pain Scale 1-3) Last Admin: 01/12/22 06:07 Dose: 650 mg Documented by: JESE Alprazolam (Alprazolam 0.25 Mg Tablet) 0.25 mg PO BID PRN PRN Reason: Anxiety Atorvastatin Calcium (Atorvastatin Calcium 20 Mg Tablet) 20 mg PO BEDTIME [facility] Last Admin: 01/11/22 23:05 Dose: 20 mg Documented by: CHARITY Levothyroxine Sodium (Levothyroxine Sodium 50 Mcg Tablet) 50 mcg PO DAILY [facility] Last Admin: 01/12/22 08:49 Dose: 50 mcg Documented by: CHENTE Loratadine (Loratadine 10 Mg Tablet) 10 mg PO DAILY [facility] Last Admin: 01/12/22 08:49 Dose: 10 mg Documented by: CHENTE Neomycin/Polymyxin/Hydrocortisone (Neomycin/Polymyxin/Hc Otic Gloria Bottle) 3 drop EAR-RIGHT QID [facility] Last Admin: 01/11/22 23:02 Dose: Not Given Documented by: HO.BEIT Non-Admin Reason: Med Not Available Ondansetron HCl (Ondansetron Hcl 4 Mg/2 Ml Vial) 4 mg IVPUSH Q8H PRN PRN Reason: Nausea and Vomiting Pharmacy Consult (Consult Rx Perform Med Rec) 1 each MISCELLANE ONCE PRN PRN Reason: Consult order Sertraline HCl (Sertraline Hcl 50 Mg Tablet) 50 mg PO DAILY [facility] Last Admin: 01/12/22 08:49 Dose: 50 mg Documented by: CHENTE Sodium Chloride (0.9 % Sodium Chloride Flush 3 Ml Syringe) 3 ml IVFLUSH QSHIFT [facility] Last Admin: 01/12/22 08:51 Dose: 3 ml Documented by: CHENTE Labs CBC & Chem 7: 01/12/22 05:45 01/12/22 05:45 Labs: Laboratory Results - last 24 hr 01/11/22 01/11/22 01/11/22 13:45 13:45 13:45 MCV 89.4 MCH 30.4 MCHC 34.0 RDW 13.2 Plt Count 273 MPV 9.6 Immature Gran % (Auto) 0.6 H Neut % (Auto) 77.4 H Lymph % (Auto) 10.1 L [place] % (Auto) 8.5 Eos % (Auto) 2.8 Baso % (Auto) 0.6 Lymph # (Auto) 0.7 L [place] # (Auto) 0.6 Eos # (Auto) 0.2 Baso # (Auto) 0.0 Abs Immat Gran (auto) 0.04 H Absolute Neuts (auto) 5.5 Absolute Nucleated RBC 0.000 Nucleated RBC % (auto) 0.0 PT 11.3 INR 1.0 Anion Gap 13 Estim Creat Clear Calc 90.4 Estimated GFR > 60 Random Glucose 94 Lactic Acid Calcium 9.8 D Total Bilirubin < 0.2 Direct Bilirubin < 0.2 AST 25 ALT 26 Alkaline Phosphatase 48 Total Protein 6.8 Albumin 4.2 Carcinoembryonic Ag 1.40 Stool Occult Blood COVID-19 (LUIS) COVID-19 Clin Com 01/11/22 01/11/22 01/11/22 13:45 13:45 17:35 MCV MCH MCHC RDW Plt Count MPV Immature Gran % (Auto) Neut % (Auto) Lymph % (Auto) [place] % (Auto) Eos % (Auto) Baso % (Auto) Lymph # (Auto) [place] # (Auto) Eos # (Auto) Baso # (Auto) Abs Immat Gran (auto) Absolute Neuts (auto) Absolute Nucleated RBC Nucleated RBC % (auto) PT INR Anion Gap Estim Creat Clear Calc Estimated GFR Random Glucose Lactic Acid 1.0 Calcium Total Bilirubin Direct Bilirubin AST ALT Alkaline Phosphatase Total Protein Albumin Carcinoembryonic Ag Stool Occult Blood POSITIVE COVID-19 (LUIS) Negative COVID-19 Clin Com See Note 01/12/22 01/12/22 05:45 05:45 MCV 88.7 MCH 29.9 MCHC 33.7 RDW 13.2 Plt Count 259 MPV 9.7 Immature Gran % (Auto) Neut % (Auto) Lymph % (Auto) [place] % (Auto) Eos % (Auto) Baso % (Auto) Lymph # (Auto) [place] # (Auto) Eos # (Auto) Baso # (Auto) Abs Immat Gran (auto) Absolute Neuts (auto) Absolute Nucleated RBC 0.000 Nucleated RBC % (auto) 0.0 PT INR Anion Gap 13 Estim Creat Clear Calc 91.9 Estimated GFR > 60 Random Glucose 102 Lactic Acid Calcium 9.6 Total Bilirubin Direct Bilirubin AST ALT Alkaline Phosphatase Total Protein Albumin Carcinoembryonic Ag Stool Occult Blood COVID-19 (LUIS) COVID-19 Clin Com Assessment and Plan (1) Rectal bleeding: Status: Acute (2) Rectal mass: Status: Acute Plan A 71 years old male with PMH of prostate cancer post radiation therapy, hypothyroidism who presents to the hospital with complaint of rectal bleeding for the last 4 days. Rectal bleeding Hemoglobin stable around 11 CT reporting possible mass like in the rectum but no active bleeding noticed Monitor H and H Normal CEA GI consult pending Continue full liquid for now To do more overnight preparation for colonoscopy tomorrow Hypothyroidism Continue levothyroxine HLD continue simvastatin DVT PPX SCDs given active bleeding The patient will need overnight hospital stay for evaluation of rectal bleeding and preparation for colonoscopy given possible chance of decompensation or have a massive bleed. Quality Stroke Does the patient have a stroke diagnosis?: No VTE Prior VTE?: No VTE Risk Level:: Medical - moderate - high VTE Device Contraindication: N/A - Device Ordered VTE Drug Contraindication: Treatment Not Indicated
[2022-01-12] MEDS: ondansetron HCL 4 MG/2 ML VIAL IVPUSH (12:27)
--- NOTE | 2022-01-12 12:31 | MHC.CM.PN ---
NURSE CASE MANAGEMENT NOTE ELECTRONIC MEDICAL RECORD REVIEWED ALONG WITH CASE DISCUSSED WITH STAFF NURSE AND THE HOSPITALIST . MET WITH PATIENT HE LIVE IN A HOUSE WITH HIS SISTER COOKIE, HE REPORTED HE IS ACTIVE, INDEPENDENT IN ALL ADLS AND MOBILITY WITH OUT THE USE OF ANY DEVICES . HIS PCP ODETTE MAN VACCINATED X2 2 AND ONE BOOSTER MODERNA , EDUCATED ABOUT THE IMPORTANCE OF HAVING A HCP AND WILL DISCUSS WITH HIS SISTER COOKIE. NO [facility] IN THE HOME DISCHARGE PLAN HOME WITH HIS SITR NO SERVICES ANTICIPATED PCP DR DUMAS [facility] IMM TRANSPORTATION PATIENT TO SELF ARRANGE
--- NOTE | 2022-01-12 14:49 | PM.EVENT ---
Event Note Date of Service: 01/12/22 Event Note: GI consult dictated EGD and colonoscopy planned 01/13for further evaluation of dysphagia and rectal bleeding.
--- NOTE | 2022-01-12 14:51 | MHC.SHP ---
Pre-Procedural Eval Section A Date of Service: 01/12/22 The patient is an INPATIENT: Yes Changes since office visit: No Cold of Flu in the past 2 weeks, No New Medical Problems, No Changes in Medication and No Patient answered all questions The History & Physical has been completed within 30 days and I have reviewed it.: Yes Section B Chief Complaint: rectal bleeding Allergies: Allergies Allergy/AdvReac Type Severity Reaction Status Date / Time Sulfa (Sulfonamide Allergy Intermediate RASH Verified 11/06/21 15:18 Antibiotics) [SULFA (SULFONAMIDE ANTIBIOTICS)] sulfa Allergy Unknown hives Uncoded 11/06/21 15:18 Plan I have reviewed the history and physical and performed a pertinent physical examination on my patient. No changes have occurred unless specified.
--- NOTE | 2022-01-12 15:36 | PM.PNGS ---
Subjective Subjective Date of Service: 01/12/22 Interval history: Says he is comfortable Denies abdominal pain Denies significant bleeding today Hungry and wants to eat Physical Exam Vital Signs: Vital Signs: Last Vital Signs Temp 97.6 F 01/12/22 15:23 Pulse 68 01/12/22 15:23 Resp 14 01/12/22 15:23 BP 121/67 01/12/22 15:23 Pulse Ox 96 01/12/22 15:23 BMI result Body Mass Index 22.8 Const: General: comfortable and no acute distress Resp: Effort & Inspection: normal respiratory effort Cardio: Rate: regular rate GI: Palpation (GI): Soft to palpation, not firm and nontender Objective Data Active Medications Acetaminophen (Acetaminophen 325 Mg Tablet) 650 mg PO Q6H PRN PRN Reason: Pain, Mild (Pain Scale 1-3) Last Admin: 01/12/22 12:27 Dose: 650 mg Documented by: CHENTE Alprazolam (Alprazolam 0.25 Mg Tablet) 0.25 mg PO BID PRN PRN Reason: Anxiety Atorvastatin Calcium (Atorvastatin Calcium 20 Mg Tablet) 20 mg PO BEDTIME [facility] Last Admin: 01/11/22 23:05 Dose: 20 mg Documented by: CHARITY Levothyroxine Sodium (Levothyroxine Sodium 50 Mcg Tablet) 50 mcg PO DAILY [facility] Last Admin: 01/12/22 08:49 Dose: 50 mcg Documented by: CHENTE Loratadine (Loratadine 10 Mg Tablet) 10 mg PO DAILY [facility] Last Admin: 01/12/22 08:49 Dose: 10 mg Documented by: CHENTE Neomycin/Polymyxin/Hydrocortisone (Neomycin/Polymyxin/Hc Otic Gloria Bottle) 3 drop EAR-RIGHT QID [facility] Last Admin: 01/12/22 14:45 Dose: Not Given Documented by: CHENTE Non-Admin Reason: med not available. pharmacy bringing Ondansetron HCl (Ondansetron Hcl 4 Mg/2 Ml Vial) 4 mg IVPUSH Q8H PRN PRN Reason: Nausea and Vomiting Last Admin: 01/12/22 12:27 Dose: 4 mg Documented by: CHENTE Pharmacy Consult (Consult Rx Perform Med Rec) 1 each MISCELLANE ONCE PRN PRN Reason: Consult order Sertraline HCl (Sertraline Hcl 50 Mg Tablet) 50 mg PO DAILY [facility] Last Admin: 01/12/22 08:49 Dose: 50 mg Documented by: CHENTE Sodium Chloride (0.9 % Sodium Chloride Flush 3 Ml Syringe) 3 ml IVFLUSH QSHIFT [facility] Last Admin: 01/12/22 08:51 Dose: 3 ml Documented by: CHENTE Labs CBC & Chem 7: 01/12/22 05:45 01/12/22 05:45 Labs: Laboratory Results - last 24 hr 01/11/22 01/11/22 01/12/22 13:45 17:35 05:45 MCV 88.7 MCH 29.9 MCHC 33.7 RDW 13.2 Plt Count 259 MPV 9.7 Absolute Nucleated RBC 0.000 Nucleated RBC % (auto) 0.0 Anion Gap Estim Creat Clear Calc Estimated GFR Random Glucose Calcium Carcinoembryonic Ag 1.40 COVID-19 (LUIS) Negative COVID-19 Clin Com See Note 01/12/22 05:45 MCV MCH MCHC RDW Plt Count MPV Absolute Nucleated RBC Nucleated RBC % (auto) Anion Gap 13 Estim Creat Clear Calc 91.9 Estimated GFR > 60 Random Glucose 102 Calcium 9.6 Carcinoembryonic Ag COVID-19 (LUIS) COVID-19 Clin Com Procedures Date of Service Date of Service: 01/12/22 Progress Note: A&P Assessment and plan (1) Rectal mass: Status: Acute Assessment and Plan: Looks well Hemoglobin stable Upper GI endoscopy and colonoscopy planned for tomorrow with GI Exam otherwise benign Time Spent With Patient Time: Total time spent is greater than 50% in coordination of care (as documented) at patient's floor/unit and/or counseling patient: Quality Stroke Does the patient have a stroke diagnosis?: No VTE Prior VTE?: No VTE Risk Level:: Medical - moderate - high VTE Device Contraindication: N/A - Device Ordered VTE Drug Contraindication: Treatment Not Indicated
[2022-01-12] MEDS: PEG 3350/Na Sulf,Bicarb,Cl/KCL 4,000 ML SOLN.RECON 4000 ML PO (15:39)
[2022-01-12] MEDS: NeoMYCIN/Polymyxin/HC Otic Sol BOTTLE 3 DROP EAR-RIGHT ×2 (15:40→20:21)
[2022-01-12] MEDS: Atorvastatin Calcium 20 MG TABLET PO (20:21)
[2022-01-13] VITALS (8 sets, daily range): BP systolic 104–151; BP diastolic 53–75; PULSE 67–72; RESP 16–18; TEMP 36.4–37.4; O2SAT 97–99; BMI 23.6
[2022-01-13] MEDS: 0.9 % Sodium Chloride Flush 3 ML SYRINGE IVFLUSH ×3 (00:21→17:46)
--- NOTE | 2022-01-13 01:51 | CONS_ITS ---
DATE OF SERVICE: 01/13/2022 REFERRING PHYSICIAN: Miguel Butterfield MD REASON FOR CONSULTATION: Rectal bleeding and dysphagia. HISTORY OF PRESENT ILLNESS: The patient is a pleasant 71-year-old man who was admitted to the hospital after presenting to the emergency room yesterday with complaints of rectal bleeding and dysphagia. He has a history of undergoing prostate seed placement and external beam radiation about a year ago for prostate cancer. With every treatment he reported diarrhea but very little rectal bleeding. He does have a history of hemorrhoids by his report. He has not undergone previous colonoscopy. About 3 days prior to admission he developed bright red blood per rectum with some dark red blood as well and presented to the emergency room. He denies any recent travel, unusual food ingestions or ill contacts and has not been on antibiotics. He does not take anticoagulants. Evaluation in the emergency room included laboratory studies showing a stable hematocrit and CT scan, which is reviewed, it is interpreted as showing no active bleeding. He did have a small bowel feces sign noted and there was asymmetric mural thickening within the rectum and anal canal thought related to adherent matter versus a mass. He was seen in consultation by Dr. Silva and digital rectal examination showed no palpable masses, dark maroon blood on the finger was noted and there was no fresh blood. PAST MEDICAL HISTORY: 1. Prostate cancer as above. 2. Depression. 3. 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 4. Hypothyroidism. 5. Elevated cholesterol. CURRENT MEDICATIONS: Current medication list is reviewed in the chart. ALLERGIES: SULFA. FAMILY HISTORY: This is negative for colon cancer. SOCIAL HISTORY: He denies tobacco, alcohol, or substance abuse. REVIEW OF SYSTEMS: SKIN: No pruritus. HEENT: Negative. CARDIOPULMONARY: He denies shortness of breath or chest pain. GASTROINTESTINAL: As above. GENITOURINARY: Negative. NEUROPSYCHIATRIC: Negative. PHYSICAL EXAMINATION: GENERAL: Pleasant male, lying comfortably in bed. VITAL SIGNS: Reviewed in the electronic medical record and are stable. SKIN: Anicteric. HEENT: No scleral icterus. NECK: Without lymphadenopathy or thyromegaly. LUNGS: Clear. HEART: Regular rate and rhythm. S1, S2. No murmur. ABDOMEN: Soft without focal masses or tenderness. Bowel sounds are present. No organomegaly is noted. EXTREMITIES: Without edema. LABORATORY DATA AND CT SCANNING: Reviewed. IMPRESSION: 1. Rectal bleeding. 2. Abnormal CT scan. 3. The patient also complained of dysphagia, which has been present for several months. He apparently had a workup for a change in his voice, but no evidence of CVA was identified. He wonders if the dysphagia is related to this. I have recommended upper endoscopy and colonoscopy for tomorrow for further evaluation of his upper GI and lower GI complaints. I did discuss the risks and benefits of both procedures today. He understands these and agrees to proceed. Thanks for asking me to see him. I will follow him in the hospital with you. MD JALEEL Cain/ANNA / [phone]
[2022-01-13] MEDS: Acetaminophen 325 MG TABLET 650 MG PO (05:49)
[2022-01-13] MEDS: Sertraline HCL 50 MG TABLET PO (08:55)
[2022-01-13] MEDS: Loratadine 10 MG TABLET PO (08:55)
[2022-01-13] MEDS: Levothyroxine Sodium 50 MCG TABLET PO (08:55)
[2022-01-13] MEDS: NeoMYCIN/Polymyxin/HC Otic Sol BOTTLE 3 DROP EAR-RIGHT (08:57)
--- NOTE | 2022-01-13 14:29 | P.CONAN_ITS ---
[facility] Active Problems Active Problems: All Active Problems (Updated 01/12/22 @ 11:07 by Miguel Butterfield MD) Rectal mass (Acute) Rectal bleeding (Acute) Slurred speech (Acute) Nocturnal leg cramps (Acute) Urinary urgency (Acute) Prostate cancer (Acute) Elevated PSA (Acute) Past Medical History Medical History Carbuncle of buttock Depression Elevated PSA Epidermal cyst Rectal bleeding Recurrent left inguinal hernia Family History Family History Father No problems noted. Mother Heart valve problem Surgical History History of Problems with Anesthesia: No Social History Social History Household Members: Family Housing: House Do you presently have visiting nurse or other home services: No Alcohol intake: never Patient Tobacco Use Status: Never used Tobacco Smoked in Last 30 Days: No e-Cigarette/Vaping Use: Never Used Second Hand Smoke Exposure: No Use of substances other than those prescribed or required for medical reasons: No Currently Displaying Signs/Symptoms of Drug Intoxication Withdrawal: No Any prior treatment program specific to substance use: No Have you been hit, kicked, punched, or otherwise hurt by someone within the past year? If so, by whom?: No Do you feel safe in your current relationship?: No Current Relationship Is there a partner from a previous relationship who is making you feel unsafe now?: No Are you made to feel afraid or neglected: No Advance Directives: No Advance Directives on File: Yes Advance Directives Date on File: 06/19/20 Do you have thoughts of harming others: None Do you have a plan to hurt others: No Plan Recently lost weight without trying: No Nutrition Risks: Difficulty swallowing Poor oral hygiene: No service: No Current occupational status: retired Meds Allergies Allergy/AdvReac Type Severity Reaction Status Date / Time Sulfa (Sulfonamide Allergy Intermediate RASH Verified 11/06/21 15:18 Antibiotics) [SULFA (SULFONAMIDE ANTIBIOTICS)] sulfa Allergy Unknown hives Uncoded 11/06/21 15:18 Active Medications: Current Medications Acetaminophen (Acetaminophen 325 Mg Tablet) 650 mg PO Q6H PRN PRN Reason: Pain, Mild (Pain Scale 1-3) Last Admin: 01/13/22 05:49 Dose: 650 mg Documented by: Alprazolam (Alprazolam 0.25 Mg Tablet) 0.25 mg PO BID PRN PRN Reason: Anxiety Atorvastatin Calcium (Atorvastatin Calcium 20 Mg Tablet) 20 mg PO BEDTIME [facility] Last Admin: 01/12/22 20:21 Dose: 20 mg Documented by: Levothyroxine Sodium (Levothyroxine Sodium 50 Mcg Tablet) 50 mcg PO DAILY [facility] Last Admin: 01/13/22 08:55 Dose: 50 mcg Documented by: Loratadine (Loratadine 10 Mg Tablet) 10 mg PO DAILY [facility] Last Admin: 01/13/22 08:55 Dose: 10 mg Documented by: Neomycin/Polymyxin/Hydrocortisone (Neomycin/Polymyxin/Hc Otic Gloria Bottle) 3 drop EAR-RIGHT QID [facility] Last Admin: 01/13/22 13:55 Dose: Not Given Documented by: Ondansetron HCl (Ondansetron Hcl 4 Mg/2 Ml Vial) 4 mg IVPUSH Q8H PRN PRN Reason: Nausea and Vomiting Last Admin: 01/12/22 12:27 Dose: 4 mg Documented by: Pharmacy Consult (Consult Rx Perform Med Rec) 1 each MISCELLANE ONCE PRN PRN Reason: Consult order Sertraline HCl (Sertraline Hcl 50 Mg Tablet) 50 mg PO DAILY [facility] Last Admin: 01/13/22 08:55 Dose: 50 mg Documented by: Sodium Chloride (0.9 % Sodium Chloride Flush 3 Ml Syringe) [facility] Admin: 01/13/22 08:57 Dose: 3 ml Documented by: Home Medications Medication Instructions Recorded Confirmed Last Taken Type levothyroxine 50 mcg tablet 50 mcg PO DAILY 09/11/20 01/11/22 01/11/22 History sertraline 100 mg tablet 50 mg PO DAILY 09/11/20 01/11/22 01/11/22 History simvastatin 20 mg tablet 20 mg PO BEDTIME 09/11/20 01/11/22 01/10/22 History acetaminophen 325 mg tablet 650 mg PO Q6H PRN 01/11/22 01/11/22 01/11/22 History (Tylenol) alprazolam 0.25 mg tablet 1 tab PO BID PRN 01/11/22 01/11/22 Unknown History loratadine 10 mg tablet (Claritin) 10 mg PO DAILY 01/11/22 01/11/22 Unknown History [id number] 3.5 3 drp OTIC (EAR) RIGHT QID 01/11/22 01/11/22 Unknown History mg/mL-10,000 unit/mL-1 % ear solution Exam Exam Date and Time: January 13, 2022 1429 Height,Weight and Vital Signs: Height 5 ft 9 in Weight 72.575 kg Last Vital Signs Temp 99.4 F 01/13/22 13:34 Pulse 71 01/13/22 13:34 Resp 16 01/13/22 13:34 BP 144/74 H 01/13/22 13:34 Pulse Ox 97 01/13/22 13:34 Pertinent Lab Results Pertinent Lab Results: Laboratory Tests 01/11/22 01/11/22 01/11/22 13:45 13:45 13:45 WBC 7.1 RBC 3.68 L Hgb 11.2 L k Hct 32.9 L MCV 89.4 MCH 30.4 MCHC 34.0 RDW 13.2 Plt Count 273 MPV 9.6 Immature Gran % (Auto) 0.6 H Neut % (Auto) 77.4 H Lymph % (Auto) 10.1 L [place] % (Auto) 8.5 Eos % (Auto) 2.8 Baso % (Auto) 0.6 Lymph # (Auto) 0.7 L [place] # (Auto) 0.6 Eos # (Auto) 0.2 Baso # (Auto) 0.0 Abs Immat Gran (auto) 0.04 H Absolute Neuts (auto) 5.5 Absolute Nucleated RBC 0.000 Nucleated RBC % (auto) 0.0 PT 11.3 INR 1.0 Sodium 138 Potassium 4.5 Chloride 101 Carbon Dioxide 29 Anion Gap 13 BUN 15 Creatinine 0.76 Estim Creat Clear Calc 90.4 Estimated GFR > 60 Random Glucose 94 Lactic Acid Calcium 9.8 D Total Bilirubin < 0.2 Direct Bilirubin < 0.2 AST 25 ALT 26 Alkaline Phosphatase 48 Total Protein 6.8 Albumin 4.2 Carcinoembryonic Ag 1.40 Stool Occult Blood COVID-19 (LUIS) COVID-19 Clin Com 01/11/22 01/11/22 01/11/22 13:45 13:45 17:35 WBC RBC Hgb Hct MCV MCH MCHC RDW Plt Count MPV Immature Gran % (Auto) Neut % (Auto) Lymph % (Auto) [place] % (Auto) Eos % (Auto) Baso % (Auto) Lymph # (Auto) [place] # (Auto) Eos # (Auto) Baso # (Auto) Abs Immat Gran (auto) Absolute Neuts (auto) Absolute Nucleated RBC Nucleated RBC % (auto) PT INR Sodium Potassium Chloride Carbon Dioxide Anion Gap BUN Creatinine Estim Creat Clear Calc Estimated GFR Random Glucose Lactic Acid 1.0 Calcium Total Bilirubin Direct Bilirubin AST ALT Alkaline Phosphatase Total Protein Albumin Carcinoembryonic Ag Stool Occult Blood POSITIVE COVID-19 (LUIS) Negative COVID-19 Clin Com See Note 01/12/22 01/12/22 05:45 05:45 WBC 6.1 RBC 3.71 L Hgb 11.1 L Hct 32.9 L MCV 88.7 MCH 29.9 MCHC 33.7 RDW 13.2 Plt Count 259 MPV 9.7 Immature Gran % (Auto) Neut % (Auto) Lymph % (Auto) [place] % (Auto) Eos % (Auto) Baso % (Auto) Lymph # (Auto) [place] # (Auto) Eos # (Auto) Baso # (Auto) Abs Immat Gran (auto) Absolute Neuts (auto) Absolute Nucleated RBC 0.000 Nucleated RBC % (auto) 0.0 PT INR Sodium 139 Potassium 4.4 Chloride 101 Carbon Dioxide 29 Anion Gap 13 BUN 11 Creatinine 0.74 Estim Creat Clear Calc 91.9 Estimated GFR > 60 Random Glucose 102 Lactic Acid Calcium 9.6 Total Bilirubin Direct Bilirubin AST ALT Alkaline Phosphatase Total Protein Albumin Carcinoembryonic Ag Stool Occult Blood COVID-19 (LUIS) COVID-19 Clin Com Airway Mallampati Class: III TM Dist: >3cm Neck ROM: Full Loose/Missing/Broken Teeth: No Heart: RRR Lungs: CTA Assessment and Plan Assessment Anesthesia Assessment: Anesthesia Plan Discussed and Chart Reviewed Final Anesthetic Review History of Problems with Anesthesia: No NPO: Yes ASA Class: II Final Preanesthetic Review: Meds/Allgs Chart Reviewed, Consent Obtained/Reviewed and Anes Risks/Benef Reviewed Patient Risk: Low Procedure Risk: Intermediate Anesthetic Plan Anesthetic Plan: MAC: Disposition: Standard PACU
--- NOTE | 2022-01-13 15:56 | HO.PM.IMPN ---
Subjective Subjective Date of Service: 01/13/22 Interval History: Seen and evaluated this morning Reported an episode of blood with stool overnight, small amount No other overnight events Review of Systems No fever, chills or weakness No chest pain, palpitation No shortness of breath or coughing No abdominal pain, nausea or vomiting but has rectal bleeding No urinary symptoms No any rash or wounds Physical Exam Vital Signs: Vital Signs: Last Vital Signs Temp 99.4 F 01/13/22 13:34 Pulse 71 01/13/22 13:34 Resp 16 01/13/22 13:34 BP 144/74 H 01/13/22 13:34 Pulse Ox 97 01/13/22 13:34 BMI result Body Mass Index 23.6 Const: Other: Constitutional : Alert, oriented, not in distress Neck : Normal inspection, Supple Cardiovascular : RRR, no JVP, no lower extremity edema Respiratory : fair bilateral air entry, no crackles, wheezes or rhonchi Gastrointestinal: soft, lax, Normal bowel sounds, Non tender, p.r. exam done by ED provider Skin : Warm, Dry Neurological : Alert & oriented x3, No focal deficit , CN 2-12 within normal Objective Data Active Medications Acetaminophen (Acetaminophen 325 Mg Tablet) 650 mg PO Q6H PRN PRN Reason: Pain, Mild (Pain Scale 1-3) Last Admin: 01/13/22 05:49 Dose: 650 mg Documented by: JESE Alprazolam (Alprazolam 0.25 Mg Tablet) 0.25 mg PO BID PRN PRN Reason: Anxiety Atorvastatin Calcium (Atorvastatin Calcium 20 Mg Tablet) 20 mg PO BEDTIME FOR[facility]LY [facility] Last Admin: 01/12/22 20:21 Dose: 20 mg Documented by: CHARITY Levothyroxine Sodium (Levothyroxine Sodium 50 Mcg Tablet) 50 mcg PO DAILY [facility] Last Admin: 01/13/22 08:55 Dose: 50 mcg Documented by: ADRIEL Loratadine (Loratadine 10 Mg Tablet) 10 mg PO DAILY [facility] Last Admin: 01/13/22 08:55 Dose: 10 mg Documented by: ADRIEL Neomycin/Polymyxin/Hydrocortisone (Neomycin/Polymyxin/Hc Otic Gloria Bottle) 3 drop EAR-RIGHT QID [facility] Last Admin: 01/13/22 13:55 Dose: Not Given Documented by: ADRIEL Non-Admin Reason: Off Unit: Surgery Ondansetron HCl (Ondansetron Hcl 4 Mg/2 Ml Vial) 4 mg IVPUSH Q8H PRN PRN Reason: Nausea and Vomiting Last Admin: 01/12/22 12:27 Dose: 4 mg Documented by: CHENTE Pharmacy Consult (Consult Rx Perform Med Rec) 1 each MISCELLANE ONCE PRN PRN Reason: Consult order Sertraline HCl (Sertraline Hcl 50 Mg Tablet) 50 mg PO DAILY [facility] Last Admin: 01/13/22 08:55 Dose: 50 mg Documented by: ADRIEL Sodium Chloride (0.9 % Sodium Chloride Flush 3 Ml Syringe) 3 ml IVFLUSH QSHIFT [facility] Last Admin: 01/13/22 08:57 Dose: 3 ml Documented by: ADRIEL Labs CBC & Chem 7: 01/12/22 05:45 01/12/22 05:45 Assessment and Plan (1) Rectal mass: Status: Acute (2) Rectal bleeding: Status: Acute Plan A 71 years old male with PMH of prostate cancer post radiation therapy, hypothyroidism who presents to the hospital with complaint of rectal bleeding for the last 4 days. Rectal bleeding Hemoglobin stable around 11 CT reporting possible mass like in the rectum but no active bleeding noticed Monitor H and H Normal CEA GI consult pending Continue full liquid for now Pending endoscopy and colonoscopy Hypothyroidism Continue levothyroxine HLD continue simvastatin DVT PPX SCDs given active bleeding The patient will need overnight hospital stay for evaluation of rectal bleeding pending endoscopy and colonoscopy given possible chance of decompensation or have a massive bleed. Quality Stroke Does the patient have a stroke diagnosis?: No VTE Prior VTE?: No VTE Risk Level:: Medical - moderate - high VTE Device Contraindication: N/A - Device Ordered VTE Drug Contraindication: Treatment Not Indicated
--- NOTE | 2022-01-13 16:05 | P.DS_ITS ---
DS: Providers Provider Date of Service: 01/13/22 Date of admission: 01/11/22 18:28 Primary care physician: Hardik Paula MD Consults: 01/11/22 18:29 Consult to Gastroenterology Routine Consulting Provider: Deni Connell Reason for consultation: rectal bleeding, questionable rectal mass on CT 01/12/22 15:42 Consult to General Surgery Routine Consulting Provider: Hardik Silva Reason for consultation: rectal bleeding, rectal mass ? DS: Diagnosis Discharge Diagnosis (1) Rectal mass: Status: Acute (2) Rectal bleeding: Status: Acute (3) Radiation proctitis: Status: Acute DS: Summary Hospital Course Hospital Course: Admission note HPI A 71 years old male with PMH of prostate cancer post radiation therapy, hypothyroidism who presents to the hospital with complaint of rectal bleeding for the last 4 days.? The patient reports that he started noticing blood with bowel motion almost 4 days ago which was fairly small amount with recurrent.? But then he noticed that even with passing gas is having some blood any start wearing underwear which he noticed multiple spots even without going to the bathroom.? He denies any chest pain, palpitation, shortness of breath, nausea or vomiting or change in bowel habit.? He reports that he had hemorrhoids before and noticed some blood but not to this extent. He reported having radiation therapy that ended in February 2021 with main side effect as diarrhea during the sessions.? He denies having any previous colonoscopy done. Hemoglobin was noted to be stable above 11 similar to his previous readings.? Advised for further evaluation and treatment. Hospital course The patient was admitted for evaluation of rectal bleeding and evidence of small mass on the CT scan. Hemoglobin remained stable as he had 1 or 2 episodes of small amount of blood. Evaluated by emergency medicine medical director Dr. Connell who did an upper and lower endoscopy S the patient also complained of slurred speech and change in his voice. Endoscopy did not show any reported abnormalities. GI suggested follow-up as outpatient for possible barium study. 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 Suggested treatment with steroid cream. To use steroid cream as prescribed to follow-up with GI for biopsy result and further workup Time Spent with Patient Time attestation: Total time spent providing and/or coordinating discharge services: Discharge coordination time: Greater than 30 minutes Quality: Safe Use of Opioids Does Pt have an Active Cancer Diagnosis on the Problem List?: No Quality: Stroke Does the patient have a stroke diagnosis?: No Physical Exam Vital Signs: Vital Signs: Last Vital Signs Temp 99.4 F 01/13/22 13:34 Pulse 71 01/13/22 13:34 Resp 16 01/13/22 13:34 BP 144/74 H 01/13/22 13:34 Pulse Ox 97 01/13/22 13:34 BMI result Body Mass Index 23.6 Const: Other: Constitutional : Alert, oriented, not in distress Neck : Normal inspection, Supple Cardiovascular : RRR, no JVP, no lower extremity edema Respiratory : fair bilateral air entry,? no crackles, wheezes or rhonchi Gastrointestinal:? soft, lax, Normal bowel sounds, Non tender, p.r. exam done by ED provider Skin : Warm, Dry Neurological : Alert & oriented x3, No focal deficit , CN 2-12 within normal DS: Data Data Completed and Pending Pending studies at discharge: Pending at discharge 01/13/22 15:17 Surgical [PTH] Routine Discharge Plan Discharge Patient Disposition: Home, Self-Care Discharge Diagnosis: Radiation proctitis, telangiectasias Referrals: Hardik Paula MD [Primary Care Provider] - 1 Week Discharge Medications: New hydrocortisone [Proctozone-HC] 2.5 % Cream With Perineal Applicator 1 appl KS BID Qty: 30 3RF Continued [id number]-TA 3.5-10,000-1 mg/mL-unit/mL-% solution 3 drp otic (ear) right QID 0RF alprazolam 0.25 mg tablet 1 tab PO BID PRN (Reason: Anxiety) 0RF acetaminophen [Tylenol] 325 mg Tablet 650 mg PO Q6H PRN (Reason: Pain) 0RF loratadine [Claritin] 10 mg Tablet 10 mg PO DAILY 0RF sertraline 100 mg tablet 50 mg PO DAILY 0RF levothyroxine 50 mcg tablet 50 mcg PO DAILY 0RF simvastatin 20 mg tablet 20 mg PO BEDTIME 0RF Discharge Orders: Discharge Order (Routine); Ordered 01/13/22 Ordered By: Miguel Butterfield Activity on Discharge: As tolerated Stand Alone Forms: Patient Portal Discharge page Care Plan Goals: Read below Health Concerns: Read below Plan of Treatment: Read below Assessment: You were admitted to the hospital for evaluation of rectal bleeding. Evaluated by emergency medicine medical director who did an upper and lower endoscopy showing evidence of radiation related complication called radiation proctitis which is inflammation of the colon. To use cortisone cream twice Daily Follow-up with Dr. Connell in the office for biopsy results Discharge Date/Time: 01/13/22 18:21
--- NOTE | 2022-01-13 16:05 | PM.EVENT ---
Event Note Date of Service: 01/13/22 Event Note: egd/colon egd is basically normal. bx's taken for h pylori and to r/o EoE. colon polyp snared rediation proctiis bx'd f/u bx results ok to dc later today start hdrocortisone suppositories will need repeat colon with better prep.
--- NOTE | 2022-01-14 04:20 | OP_ITS ---
SURGEON: Deni Connell MD INDICATIONS: 1. Dysphagia. 2. Rectal bleeding. PREOPERATIVE DIAGNOSIS: POSTOPERATIVE DIAGNOSIS: PROCEDURE PERFORMED: ESTIMATED BLOOD LOSS: COMPLICATIONS: ANESTHESIA: ASSISTANTS: SPECIMENS: PROCEDURES PERFORMED: 1. Upper endoscopy with biopsy. 2. Colonoscopy to the terminal ileum with biopsy and snare polypectomy. MEDICATIONS: Monitored anesthesia care. DESCRIPTION OF PROCEDURE: The history and physical performed. The risks and benefits of the procedure were explained to the patient. An informed consent was obtained. The patient was placed in the left lateral decubitus position. The Olympus video gastroscope was introduced into the esophagus, stomach, and duodenum. Examination was performed. The scope was removed. He was repositioned for colonoscopy. A digital rectal exam was performed and was found to be normal. The Olympus pediatric video colonoscope was introduced into the rectum and advanced to the cecum without difficulty. The cecum was identified by transillumination, palpation, and identification of ileocecal valve. Examination was performed. The scope was removed. He tolerated the both procedures well and was taken to recovery area in stable condition. FINDINGS: Upper endoscopy: 1. Esophagus: The esophagus was normal. There was no esophagitis. Random biopsies were obtained at 30 cm because of the complaints of dysphagia to rule out eosinophilic esophagitis. 2. Stomach: The stomach showed no evidence of masses, ulcers, or polyps. Antral biopsies were obtained to evaluate for H pylori. 3. Duodenum: The bulb and second portion were normal. 4. Colonoscopy: Limited views of the terminal ileum were seen, which appeared normal. The prep was extremely poor with a large amount of liquid and formed stool left and was inadequate for detection of small polypoid lesions. A small polyp was identified at 50 cm from the anal verge, removed with a snare. This measured approximately 8 mm. The polyp was recovered via suction. Changes of radiation proctitis were identified in the rectum with some slight oozing likely from the prep and from instrumentation. Telangiectasias were present. Biopsies were obtained from the rectum. Retroflexed examination showed some hypertrophic anal papillae. IMPRESSION: 1. Dysphagia. 2. Basically normal endoscopy. 3. Colon polyp. 4. Radiation proctitis. RECOMMENDATIONS: 1. Follow up the biopsy results. 2. The patient should undergo colonoscopy in the next 3 to 6 months with a more thorough prep for better visualization of the surfaces of the colon that could not be seen today. MD JALEEL Cain/ANNA / [id number]
== END 2022-01-13 18:21 | disposition home or self-care (01) | DRG 379 ==
LOC: HO.ED 17:34 → HO.EDOVER 18:37 → HO.S3 20:03
PROVIDERS: Internal Medicine Gastroenterology; Nurse Practitioner Family; Admitting Provider Student in an Organized Health Care Education/Training Program; Emergency Provider Emergency Medicine; PCP Internal Medicine; Visit Provider Student in an Organized Health Care Education/Training Program
PROC: 0DB58ZX Excision of Esophagus, Via Natural or Artificial Opening Endoscopic, Diagnostic (ICD-10-PCS; principal; 2022-01-13 14:30)
DX: K62.5 Hemorrhage of anus and rectum (principal); K62.7 Radiation proctitis; K62.1 Rectal polyp; E03.9 Hypothyroidism, unspecified; R13.10 Dysphagia, unspecified; E78.5 Hyperlipidemia, unspecified; H91.92 Unspecified hearing loss, left ear; N40.0 Benign prostatic hyperplasia without lower urinary tract symptoms; Z20.822 Contact with and (suspected) exposure to COVID-19; F32.A Depression, unspecified; Z97.4 Presence of external hearing-aid; Z85.46 Personal history of malignant neoplasm of prostate; Z92.3 Personal history of irradiation; Z88.2 Allergy status to sulfonamides; Z79.890 Hormone replacement therapy; Z79.899 Other long term (current) drug therapy
CPT/HCPCS: 36415; 74178; 80048; 80076; 82272; 82378; 83605; 85025; 85027; 85610; 87635; 88305; 88342; 99285; J2405; J3010; Q9967

== ENCOUNTER 2022-02-02 07:48 | Outpatient (REF) | payer MEDICARE, MEDICAID, SELFPAY ==
--- NOTE | ~2022-02-02 | MR_ITS ---
EXAMINATION: MRI OF THE BRAIN WITHOUT CONTRAST CLINICAL INFORMATION: Dysarthria. COMPARISON: CT scan of the head 09/11/2021.. TECHNIQUE: MRI of the brain was obtained using routine sequences without contrast. FINDINGS: No diffusion abnormalities are identified to suggest an acute or subacute infarct. No mass effect or midline shift is seen. The ventricles and sulci are slightly commensurately prominent consistent with diffuse volume loss. There are a few scattered foci of hyperintense T2 and FLAIR signal in the periventricular subcortical white matter, most consistent with chronic microvascular ischemic changes. No extra-axial fluid collections are seen. The brainstem and cerebellum are normal. No pathologic magnetic susceptibility artifact is identified on the gradient refocused acquisition. The craniovertebral junction, marrow signal, and midline structures are normal. The major intracranial flow-voids at the level of the [place] are preserved. The dural venous sinus flow-voids are maintained. There is extensive fluid in the left mastoid air cells. The right. There is cells and the paranasal sinuses are well-aerated. MR/MR head/brain wo con IMPRESSION: 1. There are no acute bleeds or infarcts. No masses are demonstrated. 2. There is diffuse volume loss and there are chronic microvascular ischemic changes. 3. There is extensive fluid in the left mastoid air cells.
== END 2022-02-02 07:49 | disposition home or self-care (01) ==
LOC: HO.MRI 07:48
PROVIDERS: Visit Provider Internal Medicine
DX: I45.89 Other specified conduction disorders (principal)
CPT/HCPCS: 70551

== ENCOUNTER 2022-02-03 08:56 | Outpatient (REF) | payer MEDICARE, MEDICAID, SELFPAY ==
[2022-02-03 11:14] LABS: Prostate Specific Antigen 0.16 ng/mL (<0.05-4.0)
[2022-02-08 13:06] LABS: Testosterone, Total 7 ng/dL (250-1100)
== END 2022-02-03 08:57 | disposition home or self-care (01) ==
LOC: HO.10HDL 08:56
PROVIDERS: Visit Provider Urology
DX: Z12.5 Encounter for screening for malignant neoplasm of prostate (principal); C61 Malignant neoplasm of prostate
CPT/HCPCS: 36415; 84153; 84403

== ENCOUNTER → 2022-02-05 10:57 | Outpatient (BNVA) | payer MEDICARE, MEDICAID, SELFPAY | PROVIDERS: PCP Internal Medicine; Visit Provider Urology | DX: C61 Malignant neoplasm of prostate (principal); N40.1 Benign prostatic hyperplasia with lower urinary tract symptoms; N13.8 Other obstructive and reflux uropathy | CPT/HCPCS: 99212 ==

== ENCOUNTER 2022-02-17 12:05 | Outpatient (REF) | payer MEDICARE, MEDICAID, SELFPAY ==
[2022-02-25 21:07] LABS: Acetylcholine Recept. Blocking 38 (<15)
[2022-02-27 16:47] LABS: Acetylcholine Recep Modulating 87
== END 2022-02-17 12:06 | disposition home or self-care (01) ==
LOC: HO.LAB 12:05
PROVIDERS: PCP Internal Medicine; Visit Provider Psychiatry & Neurology Neurology
DX: H53.2 Diplopia (principal)
CPT/HCPCS: 36415; 83519

== ENCOUNTER 2022-04-12 07:27 | Outpatient (REF) | payer MEDICARE, MEDICAID, SELFPAY ==
--- NOTE | ~2022-04-12 | CT_ITS ---
EXAMINATION: CT CHEST WITHOUT CONTRAST CLINICAL INFORMATION: Myasthenia gravis COMPARISON: Previous chest x-ray September 2021 TECHNIQUE: Multidetector volumetric CT imaging of the chest was done. Axial MIP volume rendering provided. Sagittal and coronal reformatted images were obtained. This CT examination was performed using dose optimization techniques as appropriate, variously including the following: *Automated exposure control *Adjustment of mA and/or kV according to patient size (this includes techniques or standardized protocols for targeted exams where dose is matched to indication/reason for exam; i.e. extremities or head) *Use of iterative reconstruction technique DLP: 141 mGy-cm FINDINGS: LUNGS: 3 mm calcified left upper lobe nodule axial image 199 series 7. 3 mm noncalcified right lower lobe nodule probably representing bronchial soft tissue opacification axial image 367 series 7. MEDIASTINUM: Normal thyroid gland. No mediastinal or hilar lymphadenopathy or mediastinal mass. Mild coronary artery calcification. Normal caliber thoracic aorta. Normal size heart. No pericardial effusion. PLEURA: There is no pleural effusion. No pleural mass or thickening. AXILLA: No lymphadenopathy. UPPER ABDOMEN: Small cyst with wall calcification in the upper pole of the left kidney OSSEOUS STRUCTURES: There are mild degenerative changes of the spine. CT/CT chest wo con IMPRESSION: No mediastinal mass. Small pulmonary nodules. According to the UPDATED 2017 Fleischner Society recommendations, the advised follow-up imaging for less than 6 mm solid nodule: Low risk, no chest CT follow-up and high risk, optional chest CT follow-up in one year. Fleischner guidelines were followed.
== END 2022-04-12 07:28 | disposition home or self-care (01) ==
LOC: HO.CT 07:27
PROVIDERS: Visit Provider Internal Medicine
DX: G70.00 Myasthenia gravis without (acute) exacerbation (principal)
CPT/HCPCS: 71250

== ENCOUNTER 2022-05-19 07:36 | Outpatient (REF) | payer MEDICARE, MEDICAID, SELFPAY ==
[2022-05-26 02:18] LABS: Testosterone, Total <1 ng/dL (250-1100)
== END 2022-05-19 07:37 | disposition home or self-care (01) ==
LOC: HO.10HDL 07:36
PROVIDERS: Visit Provider Urology
DX: C61 Malignant neoplasm of prostate (principal)
CPT/HCPCS: 36415; 84153; 84403

== ENCOUNTER → 2022-05-27 08:40 | Outpatient (BNVA) | payer MEDICARE, MEDICAID, SELFPAY | PROVIDERS: PCP Internal Medicine; Visit Provider Urology | DX: C61 Malignant neoplasm of prostate (principal) | CPT/HCPCS: Q3014 ==

== ENCOUNTER 2022-07-14 10:16 | Outpatient (REF) | payer MEDICARE, MEDICAID, SELFPAY ==
[2022-07-14 10:25] LABS: MANUAL DIFF FLAG NO
[2022-07-14 11:00] LABS: Basophils Absolute Auto 0.1 X10*3/uL (0.0-0.2); Basophils Percent Auto 0.9 % (0-2); Eosinophils Absolute Auto 0.2 X10*3/uL (0.0-0.4); Eosinophils Percent Auto 2.2 % (0-4); Hematocrit 31.9 % (42.0-52.0); Hemoglobin 9.7 g/dl (14.0-18.0); Imm Gran Abs Auto 0.06 X10*3/uL (0.00-0.03); Imm Gran Pct Auto 0.7 % (0.0-0.4); Lymphocytes Absolute Auto 0.7 X10*3/uL (1.2-4.9); Lymphocytes Percent Auto 8.4 % (20-40); Mean Corpuscular HGB Conc 30.4 g/dl (31.0-36.0); Mean Corpuscular Hemoglobin 25.5 pg (27.0-33.0); Mean Corpuscular Volume 83.7 fL (80.0-98.0); Mean Platelet Volume 9.6 fL (9.4-12.4); Monocytes Absolute Auto 1.1 X10*3/uL (0.1-1.2); Monocytes Percent Auto 13.3 % (2-11); Neutrophils Percent Auto 74.5 % (45-73); Platelet Count 291 X10*3/uL (160-400); Red Blood Count 3.81 X10*6/uL (4.60-5.80); Red Cell Distribution Width 18.6 % (11.0-16.0); White Blood Count 8.1 X10*3/uL (4.8-10.8)
== END 2022-07-14 10:17 | disposition home or self-care (01) ==
LOC: HO.LAB 10:16
PROVIDERS: PCP Internal Medicine; Visit Provider Internal Medicine Gastroenterology
DX: K62.5 Hemorrhage of anus and rectum (principal)
CPT/HCPCS: 36415; 85025

== ENCOUNTER 2022-07-15 10:00 | Outpatient (REF) | payer MEDICARE, MEDICAID, SELFPAY ==
[2022-07-15 11:25] LABS: Alanine Aminotransferase 30 U/L (0-40); Albumin Level 4.2 g/dL (3.5-5.0); Alkaline Phosphatase 36 U/L (39-117); Anion Gap 14 (12-20); Aspartate Amino Transferase 20 U/L (5-37); Bilirubin Total 0.4 mg/dL (0.0-1.0); Blood Urea Nitrogen 22 mg/dL (9-16); Calcium 9.6 mg/dL (8.4-10.2); Carbon Dioxide 26 mmol/L (22-29); Chloride 105 mmol/L (96-108); Cholesterol 204 mg/dL; Estimated Glomerular Filt Rate > 60; Glucose Random 98 mg/dL (60-115); Potassium 4.3 mmol/L (3.3-5.1); Sodium 141 mmol/L (135-145); Total Protein 6.5 g/dL (6.5-8.0)
[2022-07-15 11:31] LABS: Free T4 (Free Thyroxine) 0.99 ng/dL (0.71-1.85); Thyroid Stimulating Hormone 4.21 uIU/mL (0.32-4.0)
== END 2022-07-15 10:01 | disposition home or self-care (01) ==
LOC: HO.10HDL 10:00
PROVIDERS: Visit Provider Internal Medicine
DX: E03.9 Hypothyroidism, unspecified (principal); E78.00 Pure hypercholesterolemia, unspecified
CPT/HCPCS: 36415; 80053; 82465; 84439; 84443

== ENCOUNTER 2022-11-19 12:20 | Outpatient (REF) | payer MEDICARE, OTHER, SELFPAY ==
[2022-11-19 13:27] LABS: MANUAL DIFF FLAG NO
[2022-11-19 14:08] LABS: Basophils Percent Auto 0.6 % (0-2); Eosinophils Absolute Auto 0.5 X10*3/uL (0.0-0.4); Eosinophils Percent Auto 6.3 % (0-4); Hematocrit 24.5 % (42.0-52.0); Hemoglobin 7.5 g/dl (14.0-18.0); Imm Gran Abs Auto 0.02 X10*3/uL (0.00-0.03); Imm Gran Pct Auto 0.3 % (0.0-0.4); Lymphocytes Absolute Auto 1.1 X10*3/uL (1.2-4.9); Lymphocytes Percent Auto 15.8 % (20-40); Mean Corpuscular HGB Conc 30.6 g/dl (31.0-36.0); Mean Corpuscular Hemoglobin 25.8 pg (27.0-33.0); Mean Corpuscular Volume 84.2 fL (80.0-98.0); Mean Platelet Volume 10.3 fL (9.4-12.4); Monocytes Absolute Auto 0.9 X10*3/uL (0.1-1.2); Monocytes Percent Auto 13.3 % (2-11); Neutrophils Absolute Auto 4.5 x10*3/uL (2.0-8.3); Neutrophils Percent Auto 63.7 % (45-73); Platelet Count 368 X10*3/uL (160-400); Red Blood Count 2.91 X10*6/uL (4.60-5.80); Red Cell Distribution Width 16.5 % (11.0-16.0); White Blood Count 7.1 X10*3/uL (4.8-10.8)
[2022-11-19 14:23] LABS: Alanine Aminotransferase 18 U/L (0-40); Alkaline Phosphatase 50 U/L (39-117); Anion Gap 12 (12-20); Aspartate Amino Transferase 16 U/L (5-37); Bilirubin Total 0.2 mg/dL (0.0-1.0); Blood Urea Nitrogen 21 mg/dL (9-16); C Reactive Protein 1.06 mg/dL (< or = 0.50); Calcium 9.1 mg/dL (8.4-10.2); Carbon Dioxide 28 mmol/L (22-29); Chloride 106 mmol/L (96-108); Estimated Glomerular Filt Rate > 60; Glucose Random 99 mg/dL (60-115); Iron 51 mcg/dL (45-160); Percent Iron Saturation 16 % (15-50); Potassium 4.5 mmol/L (3.3-5.1); Sodium 141 mmol/L (135-145); Total Iron Binding Capacity 321 mcg/dL (228-428); Total Protein 6.3 g/dL (6.5-8.0); Unsaturated Iron Binding 270 ug/dL
[2022-11-19 14:41] LABS: Free T4 (Free Thyroxine) 0.76 ng/dL (0.71-1.85)
== END 2022-11-19 12:21 | disposition home or self-care (01) ==
LOC: HO.10HDL 12:20
PROVIDERS: Visit Provider Internal Medicine
DX: R53.83 Other fatigue (principal); E03.9 Hypothyroidism, unspecified; G70.00 Myasthenia gravis without (acute) exacerbation
CPT/HCPCS: 36415; 80053; 83540; 84439; 84443; 85025; 86140

== ENCOUNTER 2022-11-26 11:14 | Outpatient (REF) | payer MEDICARE, OTHER, SELFPAY | END 2022-11-26 11:15 | disposition home or self-care (01) | LOC: HO.MDS 11:14 | PROVIDERS: PCP Internal Medicine; Visit Provider Internal Medicine | DX: D64.9 Anemia, unspecified (principal); R53.83 Other fatigue | CPT/HCPCS: 36430; 86850; 86900; 86901; 86920; P9016 ==

== ENCOUNTER 2022-12-09 08:22 | Outpatient (REF) | payer MEDICARE, OTHER, SELFPAY ==
[2022-12-09 08:37] LABS: MANUAL DIFF FLAG NO
[2022-12-09 08:59] LABS: Basophils Absolute Auto 0.1 X10*3/uL (0.0-0.2); Basophils Percent Auto 0.9 % (0-2); Eosinophils Absolute Auto 0.6 X10*3/uL (0.0-0.4); Eosinophils Percent Auto 9.2 % (0-4); Hematocrit 31.4 % (42.0-52.0); Hemoglobin 9.7 g/dl (14.0-18.0); Imm Gran Abs Auto 0.02 X10*3/uL (0.00-0.03); Imm Gran Pct Auto 0.3 % (0.0-0.4); Lymphocytes Absolute Auto 0.9 X10*3/uL (1.2-4.9); Lymphocytes Percent Auto 13.6 % (20-40); Mean Corpuscular HGB Conc 30.9 g/dl (31.0-36.0); Mean Corpuscular Hemoglobin 26.8 pg (27.0-33.0); Mean Corpuscular Volume 86.7 fL (80.0-98.0); Mean Platelet Volume 9.9 fL (9.4-12.4); Monocytes Absolute Auto 0.4 X10*3/uL (0.1-1.2); Monocytes Percent Auto 6.5 % (2-11); Neutrophils Absolute Auto 4.7 x10*3/uL (2.0-8.3); Neutrophils Percent Auto 69.5 % (45-73); Platelet Count 316 X10*3/uL (160-400); Red Blood Count 3.62 X10*6/uL (4.60-5.80); Red Cell Distribution Width 17.5 % (11.0-16.0); White Blood Count 6.7 X10*3/uL (4.8-10.8)
[2022-12-09 09:25] LABS: Anion Gap 13 (12-20); Blood Urea Nitrogen 17 mg/dL (9-16); Calcium 9.5 mg/dL (8.4-10.2); Carbon Dioxide 25 mmol/L (22-29); Chloride 107 mmol/L (96-108); Estimated Glomerular Filt Rate > 60; Glucose Random 155 mg/dL (60-115); Iron 48 mcg/dL (45-160); Percent Iron Saturation 15 % (15-50); Potassium 4.3 mmol/L (3.3-5.1); Sodium 141 mmol/L (135-145); Total Iron Binding Capacity 312 mcg/dL (228-428); Unsaturated Iron Binding 264 ug/dL
== END 2022-12-09 08:23 | disposition home or self-care (01) ==
LOC: HO.LAB 08:22
PROVIDERS: PCP Internal Medicine; Visit Provider Internal Medicine
DX: D64.9 Anemia, unspecified (principal)
CPT/HCPCS: 36415; 80048; 83540; 85025; 85027

== ENCOUNTER 2022-12-14 10:05 | Day surgery (SDC) | payer MEDICARE, OTHER, SELFPAY ==
--- NOTE | 2022-12-13 12:24 | HO.ANESPROP2 ---
Documented by User: Izabella Urban NP 12/13/22 12:26 HPI - Anesthesia Eval Consult details Narrative: 72yo M for Colonoscopy PMFSH Active Problems Active Problems: All Active Problems (Updated 09/13/22 @ 12:03 by Izabella Urban NP) Urinary urgency (Acute) Nocturnal leg cramps (Acute) Slurred speech (Acute) Radiation proctitis (Acute) Elevated PSA (Acute) Past Medical History Medical History (Updated 09/13/22 @ 12:03 by Izabella Urban NP) Carbuncle of buttock Depression Elevated PSA Epidermal cyst Prostate cancer Rectal bleeding Rectal mass Recurrent left inguinal hernia Family History Family History Father No problems noted. Mother Heart valve problem Surgical History Surgical History (Updated 12/13/22 @ 11:55 by Ashley Pope RN) H/O hernia repair History of Problems with Anesthesia: No Social History Social History Household Members: Family Housing: House Do you presently have visiting nurse or other home services: No Alcohol intake: never Patient Tobacco Use Status: Never used Tobacco e-Cigarette/Vaping Use: Never Used Second Hand Smoke Exposure: No Use of substances other than those prescribed or required for medical reasons: No Are you DNR?: No Advance Directives: No Advance Directives Information Provided: Yes Advance Directives Date on File: 06/19/20 service: No Current occupational status: retired Meds Allergies Allergy/AdvReac Type Severity Reaction Status Date / Time Sulfa (Sulfonamide Allergy Intermediate RASH Verified 05/26/22 15:15 Antibiotics) [SULFA (SULFONAMIDE ANTIBIOTICS)] Home Medications Medication Instructions Recorded Confirmed Last Taken Type levothyroxine 50 mcg tablet 50 mcg PO DAILY 09/11/20 12/14/22 01/11/22 History simvastatin 20 mg tablet 20 mg PO BEDTIME 09/11/20 12/14/22 01/10/22 History acetaminophen 325 mg tablet 650 mg PO Q6H PRN Pain 01/11/22 12/14/22 01/11/22 History (Tylenol) alprazolam 0.25 mg tablet 1 tab PO BID PRN Anxiety 01/11/22 12/14/22 Unknown History loratadine 10 mg tablet (Claritin) 10 mg PO DAILY 01/11/22 12/14/22 Unknown History pyridostigmine bromide 60 mg tablet 1 tab PO BID 09/13/22 12/14/22 Unknown History sertraline 50 mg tablet 50 mg PO DAILY 09/13/22 12/14/22 Unknown History Exam Exam Date and Time: December 13, 2022 1224 Pertinent Lab Results Pertinent Lab Results: Laboratory Tests 12/09/22 12/09/22 08:35 08:35 WBC 6.7 Hgb 9.7 L D Hct 31.4 L D Plt Count 316 Sodium 141 Potassium 4.3 Chloride 107 Carbon Dioxide 25 BUN 17 H Creatinine 0.86 Assessment and Plan Assessment Anesthesia Assessment: Chart Reviewed Final Anesthetic Review History of Problems with Anesthesia: No Documented by User: Marko Hickey MD 12/14/22 10:51 PENDING SALE TO [facility] Past Medical History Medical History (Updated 09/13/22 @ 12:03 by Izabella Urban NP) Carbuncle of buttock Depression Elevated PSA Epidermal cyst Prostate cancer Rectal bleeding Rectal mass Recurrent left inguinal hernia Family History Family History Father No problems noted. Mother Heart valve problem Family history of problems with anesthesia: No Surgical History Surgical History (Updated 12/13/22 @ 11:55 by Ashley Pope RN) H/O hernia repair History of Problems with Anesthesia: No Social History Social History Household Members: Family Housing: House Do you presently have visiting nurse or other home services: No Alcohol intake: never Patient Tobacco Use Status: Never used Tobacco e-Cigarette/Vaping Use: Never Used Second Hand Smoke Exposure: No Use of substances other than those prescribed or required for medical reasons: No Are you DNR?: No Advance Directives: No Advance Directives Information Provided: Yes Advance Directives Date on File: 06/19/20 service: No Current occupational status: retired Meds Allergies Allergy/AdvReac Type Severity Reaction Status Date / Time Sulfa (Sulfonamide Allergy Intermediate RASH Verified 05/26/22 15:15 Antibiotics) [SULFA (SULFONAMIDE ANTIBIOTICS)] Home Medications Medication Instructions Recorded Confirmed Last Taken Type levothyroxine 50 mcg tablet 50 mcg PO DAILY 09/11/20 12/14/22 01/11/22 History simvastatin 20 mg tablet 20 mg PO BEDTIME 09/11/20 12/14/22 01/10/22 History acetaminophen 325 mg tablet 650 mg PO Q6H PRN Pain 01/11/22 12/14/22 01/11/22 History (Tylenol) alprazolam 0.25 mg tablet 1 tab PO BID PRN Anxiety 01/11/22 12/14/22 Unknown History loratadine 10 mg tablet (Claritin) 10 mg PO DAILY 01/11/22 12/14/22 Unknown History pyridostigmine bromide 60 mg tablet 1 tab PO BID 09/13/22 12/14/22 Unknown History sertraline 50 mg tablet 50 mg PO DAILY 09/13/22 12/14/22 Unknown History Exam Airway Mallampati Class: II TM Dist: >3cm Neck ROM: Limited Heart: rrr Lungs: cta Assessment and Plan Assessment Anesthesia Assessment: Anesthesia Plan Discussed and Chart Reviewed Final Anesthetic Review Family History of Problems with Anesthesia: No History of Problems with Anesthesia: No NPO: Yes ASA Class: II Final Preanesthetic Review: No Changes in Pt Med Stat, Meds/Allgs Chart Reviewed, Consent Obtained/Reviewed and Anes Risks/Benef Reviewed Patient Risk: Intermediate Procedure Risk: Low Anesthetic Plan Anesthetic Plan: MAC: and Agree w/ Assess. and Plan Disposition: Standard PACU
--- OUTSIDE RECORDS SUMMARY | 2022-12-14 10:06 | XMS_ITS ---
Author Name Deni Connell Jr Address [address] [place] [address] Organization [facility] Address [address] [place] [address] Care Team Providers Care Medical Assisting Program Director Name Role Phone Deni Connell Jr Unavailable PROBLEMS Type Condition ICD9-CM Code [id number] Code Onset Dates Condition Status SNOMED Code Problem Dysphagia R13.10 Active 04080173 Problem Rectal bleeding K62.5 Active 94110696 ALLERGIES Substance Reaction Event Type Date Status Sulfa Antibiotics Unknown Drug Allergy Jul, Act axel ENCOUNTERS Encounter Location Date Diagnosis [facility] Out[facility] [address] [place], [place] [id number] Dec, [facility] [address] [place] [phone] Nov, Rectal bleeding K62.5 [facility] [address] [place] [phone] Sep, [facility] [address] [place] [phone] Aug, [facility] [address] [place] [phone] Jul, [facility] [address] [place] [phone] Jul, [facility] [address] [place] [phone] Jul, [facility] [address] [place] [address] Jul, Rectal bleeding K62.5 [facility] [address] [place] [phone] January, [facility] [address] [place] [phone] January, IMMUNIZATIONS Vaccine Route Administration Date Status Influenza Unknown Jul 07, 2022 Administered SOCIAL HISTORY Qualifiers Date Never Smoker REASON FOR REFERRAL FUNCTIONAL STATUS PLAN OF CARE Activity Details VITAL SIGNS Weight 159 lbs 2022-07-14 Height 69 in 2022-07-14 BMI 23.48 kg/m2 2022-07-14 Temperature 97.1 degrees Fahrenheit Blood pressure systolic 000 mm Hg Blood pressure diastolic 00 mm Hg 2022-07 MEDICATIONS Medication Instructions Dosage Frequency Start Date End Date Duration Status Pyridostigmine [place] 60 MG TAKE 1 TABLET BY MOUTH THREE TIMES A DAY 90 Active LORazepam 0.5 MG 30 Active Sertraline HCl 50 MG Orally Once a day 1 tablet 24h Jul, 30 day(s) Active Anusol-HC 25 MG Rectal Once a day 1 suppository 24h Jul, 10 days Active Levothyroxine Sodium 50 MCG 90 Active MiraLax (colon prep) 17 GM/SCOOP Orally begin at 5:00 p.m. the day before the procedure mixed with Gatorade or Crystal Light Jul, 1 day Active PROCEDURES Procedure Date Ordered Result Body Site DOC RSN FOR NOT SCREEN/REC F/U HBP Jul 14, 2022 Pt scrn tbco id as non user Jul 14, 2022 UPPER GI ENDOSCOPY, BIOPSY January 12, 2022 DOC MEDS VERIFIED W/PT OR RE Jul 14, 2022 LESION REMOVAL COLONOSCOPY January 12, 2022 COLORECTAL CA SCREEN DOC REV Jul 14, 2022 RESULTS Name Result Date Reference Range Complete Blood Count no Diff 2022-12-09 White Blood Count 6.7 4.8-10.8 Red Blood Count 3.62 4.60-5.80 Hemoglobin 9.7 14.0-18.0 Hematocrit 31.4 42.0-52.0 Mean Corpuscular Volume 86.7 80.0 -98.0 Mean Corpuscular Hemoglobin 26.8 27.0-33.0 Mean Corpuscular HGB Conc 30.9 31 .0-36.0 Red Cell Distribution Width 17.5 11.0-16.0 Platelet Count 316 160-400 Mean Platelet Volume 9.9 9.4-12. 4 NRBC Pct Auto 0.0 0.0-0.2 NRBC Abs Auto 0.000 0.0-0.012 Complete Blood Count Auto Diff 2022-12-09 White Blood Count 6.7 4.8-10.8 Red Blood Count 3.62 4.60-5.80 Hemoglobin 9.7 14.0-18.0 Hematocrit 31.4 42.0-52.0 Mean Corpuscular Volume 86.7 80.0 -98.0 Mean Corpuscular Hemoglobin 26.8 27.0-33.0 Mean Corpuscular HGB Conc 30.9 31 .0-36.0 Red Cell Distribution Width 17.5 11.0-16.0 Platelet Count 316 160-400 Mean Platelet Volume 9.9 9.4-12. 4 Neutrophils Percent Auto 69.5 45- 73 Imm Gran Pct Auto 0.3 0.0-0.4 Lymphocytes Percent Auto 13.6 20- 40 Monocytes Percent Auto 6.5 2-11 Eosinophils Percent Auto 9.2 0-4 Basophils Percent Auto 0.9 0-2 NRBC Pct Auto 0.0 0.0-0.2 Neutrophils Absolute Auto 4.7 2. 0-8.3 Imm Gran Abs Auto 0.02 0.00-0.03 Lymphocytes Absolute Auto 0.9 1. 2-4.9 Monocytes Absolute Auto 0.4 0.1- 1.2 Eosinophils Absolute Auto 0.6 0. 0-0.4 Basophils Absolute Auto 0.1 0.0- 0.2 NRBC Abs Auto 0.000 0.0-0.012 Basic Metabolic Panel 2022-12-09 Sodium 141 135-145 Potassium 4.3 3.3-5.1 Chloride 107 96-108 Carbon Dioxide 25 22-29 Anion Gap 13 12-20 Blood Urea Nitrogen 17 9-16 Creatinine 0.86 0.5-1.4 Estimated Glomerular Filt Rate >60 Glucose Random 155 60-115 Calcium 9.5 8.4-10.2 IRON PROFILE 2022-12-09 Iron 48 45-160 Total Iron Binding Capacity 312 228-428 Percent Iron Saturation 15 15-5 0 Unsaturated Iron Binding 264 Complete Blood Count Auto Diff 2022-07-14 White Blood Count 8.1 4.8-10.8 Red Blood Count 3.81 4.60-5.80 Hemoglobin 9.7 14.0-18.0 Hematocrit 31.9 42.0-52.0 Mean Corpuscular Volume 83.7 80.0 -98.0 Mean Corpuscular Hemoglobin 25.5 27.0-33.0 Mean Corpuscular HGB Conc 30.4 31 .0-36.0 Red Cell Distribution Width 18.6 11.0-16.0 Platelet Count 291 160-400 Mean Platelet Volume 9.6 9.4-12. 4 Neutrophils Percent Auto 74.5 45- 73 Imm Gran Pct Auto 0.7 0.0-0.4 Lymphocytes Percent Auto 8.4 20- 40 Monocytes Percent Auto 13.3 2-11 Eosinophils Percent Auto 2.2 0-4 Basophils Percent Auto 0.9 0-2 NRBC Pct Auto 0.0 0.0-0.2 Neutrophils Absolute Auto 6.0 2. 0-8.3 Imm Gran Abs Auto 0.06 0.00-0.03 Lymphocytes Absolute Auto 0.7 1. 2-4.9 Monocytes Absolute Auto 1.1 0.1- 1.2 Eosinophils Absolute Auto 0.2 0. 0-0.4 Basophils Absolute Auto 0.1 0.0- 0.2 NRBC Abs Auto 0.000 0.0-0.012 Pathology 2022-01-13 REASON FOR VISIT rectal bleeding, rectal bleeding, please reschedule his colonoscopy, rectal bleeding, colonoscopy, Please lock ov note from 07-14-2022, Can he take anything for his anemia, labs/pt with no vm to leavemessage, Pataient presents today for a 6 month f/u for rectal bleed, appt, pathology/ waiting on [facility] back Insurance Providers Health Insurance Type Health Plan Insurance Address Health Plan Insurance Phone Health Plan Insurance Name Health Plan Coverage Dates Member ID Patient Relationship to Subscriber Patient Address Patient Phone Patient Name Patient Date of Subscriber ID Subscriber Name Subscriber Date of Group No MEDICAID OF [employer] [address] [facility] [address] MEDICAID OF [employer] [facility] JUDY ARREDONDO [id number] MEDICARE OF [place] [address] [facility] [address] MED[place]ARE OF [place] self JUDY ARREDONDO [id number]
--- OUTSIDE RECORDS SUMMARY | 2022-12-14 10:06 | XMS_ITS | Continuity of Care Document ---
Author Name Unknown Organization [facility] Address [address] [place] [address]- Care Team Providers Care Power Saw Operator Name Role Phone Not on Staff, PCP Primary Care Physician Unavail able Encounter [facility] Date(s): 10/10/20 - 11/09/20 [facility] [address] [place] [phone]- Attending Physician: Savannah Lara Admitting Physician: Savannah Lara Referring Physician: Savannah Lara Immunizations Given and Recorded Vaccine Date Status Refusal Reason SARS-CoV-2 (COVID-19) [id number] vaccine 10/30/20 G iven Medications bicalutamide 50 mg oral tablet 1 tablet = 50 mg, By Mouth, Every 24 hours, 0 Refills, Maintenance, 10/20/20 15:05:00 EST, Partial fill upon patient request if the prescription is for a schedule II opioid drug. Start Date: 10/20/20 Status: Ordered finasteride 5 mg oral tablet 1 tablet = 5 mg, By Mouth, Daily, 0 Refills, Maintenance, 10/20/20 15:05:00 EST, Partial fill upon patient request if the prescription is for a schedule II opioid drug. Start Date: 10/20/20 Status: Ordered levothyroxine 50 mcg (0.05 mg) oral capsule 1 capsule = 50 mcg, By Mouth, Daily, 0 Refills, Maintenance, 10/20/20 15:06:00 EST, Partial fill upon patient request if the prescription is for a schedule II opioid drug. Start Date: 10/20/20 Status: Ordered sertraline 50 mg oral tablet 1 tablet = 50 mg, By Mouth, Daily, 0 Refills, Maintenance, 10/20/20 15:05:00 EST, Partial fill uponpatient request if the prescription is for a schedule II opioid drug. Start Date: 10/20/20 Status: Ordered simvastatin 20 mg oral tablet 20 mg, 1, tablet, By Mouth, Daily at bedtime, Refills 0, Maintenance, 10/20/20 15:05:00 EST, Partial fill upon patient request if the prescription is for a schedule II opioid drug. Start Date: 10/20/20 Status: Ordered
--- OUTSIDE RECORDS SUMMARY | 2022-12-14 10:06 | XMS_ITS | Continuity of Care Document ---
Author Name Unknown Organization [facility] Address [address] [place] [address]- Care Team Providers Care Legal Manager Name Role Phone Not on Staff, PCP Primary Care Physician Unavail able Encounter [facility] Date(s): 10/10/20 - 04/25/21 [facility] [address] [place] [phone]- Discharge Disposition: A-D/C Home Attending Physician: Hammad Hitchcock MD Admitting Physician: Hammad Hitchcock MD Referring Physician: David Oliveira MD Immunizations Given and Recorded Vaccine Date Status Refusal Reason SARS-CoV-2 (COVID-19) mRNA-1273 vaccine 11/27/20 G iven SARS-CoV-2 (COVID-19) mRNA-1273 vaccine 10/30/20 G iven Medications bicalutamide 50 [...] opioid drug. Start Date: 10/20/20 Status: Ordered Lomotil 0.025 mg-2.5 mg oral tablet 2, tablet, By Mouth, 4 times a day, PRN, # 50 tablet, Refills 0, Tot. Refills 0, Maintenance, for loose stool, 02/13/21 9:45:00 EDT, Route to Pharmacy Electronically, [facility]/pharmacy #[id number] Tablet, Partial fill upon patient request if the prescription is... Start Date: 02/13/21 Status: Ordered sertraline 50 mg oral tablet [...] opioid drug. Start Date: 10/20/20 Status: Ordered Vital Signs Most recent to oldest [Reference Range]: 1 2 3 Height 173.0 cm (02/17/21 10:10 AM) 173.0 cm (02/05/21 11:02 AM) 173.0 cm (01/27/21 2:49 PM) Weight 76.2 kg (10/20/20 2:14 PM) Oxygen Saturation [94-100 %] 97 % (02/05/21 11:02 AM) 99 % (01/27/21 2:49 PM) Pulse Rate [55-90 bpm] 65 bpm (10/20/20 2:14 PM) Body Mass Index [18.5-24.99] 25.46 *H* (10/20/20 2:14 PM) Blood Pressure [90-138/55-84 mm Hg] 132/68mm Hg (10/20/20 2:14 PM) Respiratory Rate [16-30 br/min] 20 br/min (02/05/21 11:02 AM) 18 br/min (01/27/21 2:49 PM) Temperature [96.8-100.4 DegF] 98.1 DegF (01/27/21 2:49 PM) 98.6 DegF (10/20/20 2:14 PM) Mode of Delivery (Oxygen) Room air (02/05/21 11:02 AM) Room air (01/27/21 2:49 PM) Blood pressure sites Arm, right (10/20/20 2:14 PM) Temperature Route Oral (01/27/21 2:49 PM) Temporal (10/20/20 2:14 PM) Dry Weight 76.2 kg (10/20/20 2:14 PM) Weight Obtained Via Standing scale (10/20/20 2:14 PM) Dry Weight Obtained Via Standing scale (10/20/20 2:14 PM)
[2022-12-14 10:26] VITALS: BP 136/67; PULSE 83; RESP 18; TEMP 36.3; O2SAT 95; BMI 22.1
[2022-12-14] MEDS: Lactated Ringers 1,000 ML 100 ML IVCONT (11:02)
--- NOTE | 2022-12-14 11:18 | MHC.SHP ---
Pre-Procedural Eval Section A Date of Service: 12/14/22 Section B Chief Complaint: rectal bleeding, Details of Present Illness: see H*P no changes Relevant Family History (Specify if Yes): No Relevant Social History: None Present Medications: see Short Stay Collaborative assessment Medical History: No relevant PMH History of Previous Operations: No relevant previous surgery Allergies: Allergies Allergy/AdvReac Type Severity Reaction Status Date / Time Sulfa (Sulfonamide Allergy Intermediate RASH Verified 05/26/22 15:15 Antibiotics) [SULFA (SULFONAMIDE ANTIBIOTICS)] Review of Systems Sugical H&P ROS: Negative: Constitution, Cardiovascular, Respiratory, Neurological, Psychiatric, Hem-Onc, Allergic/Immunologic, Gastrointestinal, Genitourinary, Musculoskeletal, Integumentary, Endocrine and Eyes/Ears/Nose/Throat Exam Surgical H&P Exam: Normal: HEENT, Normal: Heart, Normal: Lungs, Normal: Extremities, Normal: Abdomen, Normal: Skin and Normal: Neurological Plan Diagnosis/Plan: Unchanged I have reviewed the history and physical and performed a pertinent physical examination on my patient. No changes have occurred unless specified. Time Spent With Patient Time: Total time managing care of this patient today ____ minutes.
--- NOTE | 2022-12-14 12:01 | PM.OP ---
Brief Operative Note Date of Service: 12/14/22 Pre-op diagnosis: rectal bleeding Post-op diagnosis: same Procedure: colonosocopy Surgeon: Deni Connell Anesthesia: MAC Was an Concrete Float Maker used for this Procedure?: No Estimated blood loss (mL): 5 Pathology: other Condition: stable Disposition: PACU
[2022-12-14 12:02] VITALS: BP 94/43; PULSE 69; RESP 16; TEMP 36.3; O2SAT 97
[2022-12-14 12:17] VITALS: BP 116/61; PULSE 74; RESP 16; TEMP 36.4; O2SAT 99
--- NOTE | 2022-12-14 15:52 | OP_ITS ---
DATE OF SERVICE: 12/14/2022 SURGEON: Deni Connell MD INDICATIONS: Rectal bleeding. PREOPERATIVE DIAGNOSIS: POSTOPERATIVE DIAGNOSIS: PROCEDURE PERFORMED: Colonoscopy to the terminal ileum with biopsy. ESTIMATED BLOOD LOSS: COMPLICATIONS: ANESTHESIA: Monitored anesthesia care. ASSISTANTS: SPECIMENS: DESCRIPTION OF PROCEDURE: A history and physical performed. The risks and benefits of the procedure were explained to the patient. Informed consent was obtained. The patient was placed in a left lateral decubitus position. A digital rectal exam was performed and was found to be normal. The Olympus pediatric video colonoscope was introduced into the rectum and advanced to the cecum without difficulty. The cecum was identified by transillumination, palpation, and identification of ileocecal valve. Examination was performed. The scope was removed. He tolerated the procedure well and was returned to recovery area in stable condition. FINDINGS: The terminal ileum was examined and appeared normal. The visualized colonic mucosa was within normal limits without evidence of masses or ulcers. There was some liquid stool coating the mucosa which was washed and suctioned. No polyps were identified. Changes of radiation proctitis with friability and oozing were present in the rectum. Two biopsies were obtained from the rectal mucosa. Retroflexed examination showed some internal hemorrhoids. IMPRESSION: Radiation proctitis. RECOMMENDATION: Follow up the biopsy results. MD JALEEL Cain/ANNA / [phone]
== END 2022-12-14 12:49 | disposition home or self-care (01) ==
PROVIDERS: PCP Internal Medicine; Visit Provider Internal Medicine Gastroenterology
PROC: 0DJD8ZZ Inspection of Lower Intestinal Tract, Via Natural or Artificial Opening Endoscopic (ICD-10-PCS; CPT 45378; principal; 2022-12-14 11:10)
DX: K62.5 Hemorrhage of anus and rectum (principal); K62.7 Radiation proctitis; Y84.2 Radiological procedure and radiotherapy as the cause of abnormal reaction of the patient, or of later complication, without mention of misadventure at the time of the procedure; Z85.46 Personal history of malignant neoplasm of prostate; K64.8 Other hemorrhoids; G70.00 Myasthenia gravis without (acute) exacerbation; Z79.899 Other long term (current) drug therapy; Z88.2 Allergy status to sulfonamides
CPT/HCPCS: 45380; 88305

== ENCOUNTER 2023-01-26 06:53 | Outpatient (REF) | payer MEDICARE, OTHER, SELFPAY ==
[2023-01-26 07:02] LABS: MANUAL DIFF FLAG NO
[2023-01-26 07:52] LABS: Basophils Absolute Auto 0.1 X10*3/uL (0.0-0.2); Basophils Percent Auto 0.9 % (0-2); Eosinophils Absolute Auto 0.6 X10*3/uL (0.0-0.4); Hematocrit 32.6 % (42.0-52.0); Hemoglobin 10.2 g/dl (14.0-18.0); Imm Gran Abs Auto 0.05 X10*3/uL (0.00-0.03); Imm Gran Pct Auto 0.8 % (0.0-0.4); Lymphocytes Absolute Auto 1.2 X10*3/uL (1.2-4.9); Lymphocytes Percent Auto 18.3 % (20-40); Mean Corpuscular HGB Conc 31.3 g/dl (31.0-36.0); Mean Corpuscular Hemoglobin 27.7 pg (27.0-33.0); Mean Corpuscular Volume 88.6 fL (80.0-98.0); Mean Platelet Volume 10.3 fL (9.4-12.4); Monocytes Absolute Auto 0.6 X10*3/uL (0.1-1.2); Monocytes Percent Auto 9.3 % (2-11); Neutrophils Absolute Auto 4.1 x10*3/uL (2.0-8.3); Neutrophils Percent Auto 61.7 % (45-73); Platelet Count 287 X10*3/uL (160-400); Red Blood Count 3.68 X10*6/uL (4.60-5.80); Red Cell Distribution Width 17.4 % (11.0-16.0); White Blood Count 6.6 X10*3/uL (4.8-10.8)
[2023-01-26 08:01] LABS: Estimated Average Glucose 91 mg/dL; Hemoglobin A1c % 4.8 %
[2023-01-26 08:34] LABS: Anion Gap 13 (12-20); Blood Urea Nitrogen 16 mg/dL (9-16); Calcium 9.6 mg/dL (8.4-10.2); Carbon Dioxide 26 mmol/L (22-29); Chloride 106 mmol/L (96-108); Estimated Glomerular Filt Rate > 60; Glucose Random 132 mg/dL (60-115); Potassium 4.4 mmol/L (3.3-5.1); Sodium 141 mmol/L (135-145)
== END 2023-01-26 06:54 | disposition home or self-care (01) ==
LOC: HO.LAB 06:53
PROVIDERS: PCP Internal Medicine; Visit Provider Internal Medicine
DX: D64.9 Anemia, unspecified (principal); R73.01 Impaired fasting glucose
CPT/HCPCS: 36415; 80048; 83036; 85025

== ENCOUNTER 2023-03-03 09:22 | Outpatient (REF) | payer MEDICARE, OTHER, SELFPAY ==
[2023-03-03 09:42] LABS: MANUAL DIFF FLAG NO
[2023-03-03 10:23] LABS: Basophils Absolute Auto 0.1 X10*3/uL (0.0-0.2); Basophils Percent Auto 0.7 % (0-2); Eosinophils Absolute Auto 0.3 X10*3/uL (0.0-0.4); Eosinophils Percent Auto 3.8 % (0-4); Hematocrit 37.1 % (42.0-52.0); Hemoglobin 12.1 g/dl (14.0-18.0); Imm Gran Abs Auto 0.03 X10*3/uL (0.00-0.03); Imm Gran Pct Auto 0.4 % (0.0-0.4); Lymphocytes Absolute Auto 1.2 X10*3/uL (1.2-4.9); Lymphocytes Percent Auto 15.5 % (20-40); Mean Corpuscular HGB Conc 32.6 g/dl (31.0-36.0); Mean Corpuscular Hemoglobin 28.7 pg (27.0-33.0); Mean Corpuscular Volume 87.9 fL (80.0-98.0); Mean Platelet Volume 10.2 fL (9.4-12.4); Monocytes Absolute Auto 0.9 X10*3/uL (0.1-1.2); Monocytes Percent Auto 11.1 % (2-11); Neutrophils Absolute Auto 5.3 x10*3/uL (2.0-8.3); Neutrophils Percent Auto 68.5 % (45-73); Platelet Count 291 X10*3/uL (160-400); Red Blood Count 4.22 X10*6/uL (4.60-5.80); Red Cell Distribution Width 16.7 % (11.0-16.0); White Blood Count 7.7 X10*3/uL (4.8-10.8)
[2023-03-03 11:02] LABS: Alanine Aminotransferase 22 U/L (0-40); Albumin Level 4.5 g/dL (3.5-5.0); Alkaline Phosphatase 50 U/L (39-117); Anion Gap 13 (12-20); Aspartate Amino Transferase 20 U/L (5-37); Bilirubin Total 0.5 mg/dL (0.0-1.0); Blood Urea Nitrogen 17 mg/dL (9-16); Calcium 10.4 mg/dL (8.4-10.2); Carbon Dioxide 26 mmol/L (22-29); Chloride 105 mmol/L (96-108); Cholesterol 182 mg/dL; Estimated Glomerular Filt Rate > 60; Glucose Random 104 mg/dL (60-115); Iron 61 mcg/dL (45-160); Percent Iron Saturation 18 % (15-50); Sodium 140 mmol/L (135-145); Total Iron Binding Capacity 338 mcg/dL (228-428); Total Protein 7.7 g/dL (6.5-8.0); Unsaturated Iron Binding 277 ug/dL
[2023-03-03 11:17] LABS: Free T4 (Free Thyroxine) 0.87 ng/dL (0.71-1.85)
[2023-03-03 14:46] LABS: Prostate Specific Antigen 0.14 ng/mL (<0.05-4.0)
[2023-03-09 11:33] LABS: Testosterone, Total 182 ng/dL (250-1100)
== END 2023-03-03 09:23 | disposition home or self-care (01) ==
LOC: HO.LAB 09:22
PROVIDERS: Urology; PCP Internal Medicine; Visit Provider Internal Medicine
DX: C61 Malignant neoplasm of prostate (principal); D64.9 Anemia, unspecified; E03.9 Hypothyroidism, unspecified; Z12.5 Encounter for screening for malignant neoplasm of prostate
CPT/HCPCS: 36415; 80053; 82465; 83540; 84153; 84403; 84439; 84443; 85025

== ENCOUNTER 2023-05-26 12:38 | Outpatient (REF) | payer MEDICARE, OTHER, SELFPAY ==
[2023-05-26 13:13] LABS: MANUAL DIFF FLAG NO
[2023-05-26 13:17] LABS: Basophils Absolute Auto 0.1 X10*3/uL (0.0-0.2); Basophils Percent Auto 0.5 % (0-2); Eosinophils Absolute Auto 0.1 X10*3/uL (0.0-0.4); Eosinophils Percent Auto 1.3 % (0-4); Hematocrit 36.7 % (42.0-52.0); Hemoglobin 12.1 g/dl (14.0-18.0); Imm Gran Abs Auto 0.08 X10*3/uL (0.00-0.03); Imm Gran Pct Auto 0.8 % (0.0-0.4); Lymphocytes Absolute Auto 1.2 X10*3/uL (1.2-4.9); Lymphocytes Percent Auto 12.6 % (20-40); Mean Corpuscular Volume 91.1 fL (80.0-98.0); Mean Platelet Volume 9.8 fL (9.4-12.4); Monocytes Absolute Auto 1.2 X10*3/uL (0.1-1.2); Monocytes Percent Auto 12.3 % (2-11); Neutrophils Absolute Auto 6.9 x10*3/uL (2.0-8.3); Neutrophils Percent Auto 72.5 % (45-73); Platelet Count 282 X10*3/uL (160-400); Red Blood Count 4.03 X10*6/uL (4.60-5.80); Red Cell Distribution Width 13.6 % (11.0-16.0); White Blood Count 9.5 X10*3/uL (4.8-10.8)
[2023-05-26 13:46] LABS: Alanine Aminotransferase 18 U/L (0-40); Albumin Level 4.4 g/dL (3.5-5.0); Alkaline Phosphatase 55 U/L (39-117); Anion Gap 12 (12-20); Aspartate Amino Transferase 14 U/L (5-37); Bilirubin Total 0.4 mg/dL (0.0-1.0); Blood Urea Nitrogen 14 mg/dL (9-16); Calcium 10.2 mg/dL (8.4-10.2); Carbon Dioxide 27 mmol/L (22-29); Chloride 105 mmol/L (96-108); Estimated Glomerular Filt Rate > 60; Glucose Random 99 mg/dL (60-115); Magnesium 2.3 mg/dL (1.6-2.6); Potassium 4.3 mmol/L (3.3-5.1); Sodium 140 mmol/L (135-145); Total Protein 7.1 g/dL (6.5-8.0)
[2023-05-26 13:55] LABS: Free T4 (Free Thyroxine) 1.03 ng/dL (0.71-1.85); Thyroid Stimulating Hormone 0.11 uIU/mL (0.32-4.0)
[2023-05-26 14:06] LABS: Vitamin B12 563 pg/mL (200-900)
== END 2023-05-26 12:39 | disposition home or self-care (01) ==
LOC: HO.10HDL 12:38
PROVIDERS: Visit Provider Internal Medicine
DX: R53.83 Other fatigue (principal); E03.9 Hypothyroidism, unspecified
CPT/HCPCS: 36415; 80053; 82607; 83735; 84439; 84443; 85025

== ENCOUNTER 2023-08-08 08:29 | Outpatient (REF) | payer MEDICARE, OTHER, SELFPAY | END 2023-08-08 08:30 | disposition home or self-care (01) | LOC: HO.MDS 08:29 | PROVIDERS: Visit Provider Psychiatry & Neurology Neurology | DX: G70.00 Myasthenia gravis without (acute) exacerbation (principal) | CPT/HCPCS: 96365; 96366; J1569 ==

== ENCOUNTER 2023-08-09 08:21 | Outpatient (REF) | payer MEDICARE, OTHER, SELFPAY | END 2023-08-09 08:22 | disposition home or self-care (01) | LOC: HO.MDS 08:21 | PROVIDERS: Visit Provider Psychiatry & Neurology Neurology | DX: G70.00 Myasthenia gravis without (acute) exacerbation (principal) | CPT/HCPCS: 96365; 96366; J1569 ==

== ENCOUNTER 2023-08-10 08:22 | Outpatient (REF) | payer MEDICARE, OTHER, SELFPAY | END 2023-08-10 08:23 | disposition home or self-care (01) | LOC: HO.MDS 08:22 | PROVIDERS: Visit Provider Psychiatry & Neurology Neurology | DX: G70.00 Myasthenia gravis without (acute) exacerbation (principal) | CPT/HCPCS: 96365; 96366; J1569 ==

== ENCOUNTER 2023-08-11 08:24 | Outpatient (REF) | payer MEDICARE, OTHER, SELFPAY | END 2023-08-11 08:25 | disposition home or self-care (01) | LOC: HO.MDS 08:24 | PROVIDERS: PCP Internal Medicine; Visit Provider Psychiatry & Neurology Neurology | DX: G70.00 Myasthenia gravis without (acute) exacerbation (principal) | CPT/HCPCS: 96365; 96366; J1569 ==

== ENCOUNTER 2023-08-12 08:21 | Outpatient (REF) | payer MEDICARE, OTHER, SELFPAY | END 2023-08-12 08:22 | disposition home or self-care (01) | LOC: HO.MDS 08:21 | PROVIDERS: PCP Internal Medicine; Visit Provider Psychiatry & Neurology Neurology | DX: G70.00 Myasthenia gravis without (acute) exacerbation (principal) | CPT/HCPCS: 96365; 96366; J1569 ==

== ENCOUNTER 2023-11-07 08:55 | Outpatient (REF) | payer MEDICARE, MEDICAID, SELFPAY ==
--- NOTE | ~2023-11-07 | MR_ITS ---
EXAMINATION: MR HEAD/BRAIN WITHOUT AND WITH CONTRAST MR ORBITS FACE NECK WITHOUT AND WITH CONTRAST CLINICAL INFORMATION: Diplopia, restricted adduction, proptosis. Self-reported loss of hearing bilaterally and double vision. COMPARISON: MRI brain 02/02/2022 CT head 09/11/2021. Bone scan 10/13/2020. TECHNIQUE: Unenhanced and IV contrast-enhanced MRI of the brain; unenhanced and IV contrast-enhanced MRI of the orbits. Intravenous Contrast: Gadavist 7.5 mL FINDINGS: MRI BRAIN: Diffusion-weighted images demonstrate no evidence of acute infarcts. Mild diffuse commensurate prominence of ventricles and sulci is present and is qualitatively, unchanged compared with 02/02/2022. A mild number of scattered supratentorial, subcortical and periventricular white matter punctate nonenhancing T2 hyperintensities are visualized and making allowances for interval differences in slice selection are unchanged compared with 02/02/2022. Susceptibility weighted images reveal no evidence of acute or chronic hemorrhage within the brain parenchyma. The craniocervical junction cerebellar tonsils are normal in configuration. The pituitary is grossly normal in appearance. No marrow abnormalities are identified. Normal flow-related signal intensity is identified in the major intracranial vessels and dural sinuses. Bilateral mastoid effusions are identified. Partial visualization is made of bilateral middle ear cavity effusions. No gross oropharyngeal lesions are identified. An arborizing, curvilinear enhancing focus is present within the anterior right frontal lobe incorporating both the right inferior frontal and anterior right middle frontal lobe gyri consistent with a developmental venous anomaly with an overall extent of approximately 1.5 cm (series 18 image 23). No associated cavernous angioma. MRI ORBITS: The orbits and globes are normal in appearance. No lesions are identified in the region of the orbital apices. The optic chiasm is normal in appearance. The extraocular muscles are normal in appearance. The lacrimal glands are normal in appearance. Mild mucosal thickening within expected limits of normal physiologic variation is noted within scattered ethmoid air cells and the frontal sinuses. 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 *Bilateral mastoid and middle ear cavity effusions, similar to findings present on MRI of the brain 02/02/2022. *Normal appearance of the orbits and globes. 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 Developmental venous anomalies are frequently encountered; low-flow congenital vascular anomalies generally of no clinical significance.
[2023-11-07] MEDS: gadobutroL 7.5 ML VIAL IVPUSH (10:32)
== END 2023-11-07 08:56 | disposition home or self-care (01) ==
LOC: HO.MRI 08:55
PROVIDERS: PCP Internal Medicine; Visit Provider Ophthalmology
DX: H49.02 Third [oculomotor] nerve palsy, left eye (principal)
CPT/HCPCS: 70543; 70553; A9585

== ENCOUNTER → 2024-03-06 09:33 | Outpatient (RCR) | payer MEDICARE, MEDICAID, SELFPAY ==
--- NOTE | 2022-02-18 16:34 | MHC.SP.ADU ---
Referring provider: Hardik Paula MD Reason for Referral: Slurred Speech Type of Treatment: [id number] Evaluation Speech Sound Production WITH Language Date of Plan of Treatment: 02/09/22 Onset of Symptoms/Illness: 09/11/21 Date Treatment Started: 02/09/22 Medical Diagnosis: TIA 09/11/21 w/ no findings on CT, no finding on Corotid Doppler study completed at that time. MRI on 02/02/22: No acute findings Diffuse volume loss and chronic microvascular ischemic changes, extensive fluid in L mastoid air cells. Primary Speech Language Diagnosis: R47.1 Dysarthria Secondary Speech Language Diagnosis: History John Harris is a 71 year old man who reports that he began having slurred speech at the beginning of September of this year. His daughter recommended he go to the Emergency Department to have himself checked out for suspicion of stroke. Mr. Gibbs reported that he was in the ED for two days, had a number of tests completed without there being a clear diagnosis, although told it was a Transient Ischemic Attack. Since September, Mr. Gibbs reports that he has continued to have difficulty with his speech, with difficulty producing certain sounds and multisyllabic words in particular. He has noted that he speech worsens as he becomes tired and is worse in the evening compared to the a.m. He also reports that he has noted difficulty at times with swallowing, and that he needs to be careful and aware when he is eating, having most difficulty with difficult to chew solids. Additionally he noted that he was often biting his tongue and went so far as to have some teeth removed to avoid continually doing this. Medical History: Allergies Arthritis Hearing Loss High Blood Pressure Other: Hypothyroid, BPH, Prostate Cancer w/ extensive treatment per patient, rectal bleeding. 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 Past Speech Language Therapy: None. Other Therapies Seen in Current Calendar Year: Reported Speech, Language, Cognition difficulties: Speaking Comments: Mr. Gibbs presents with mild to moderate Dysarthria, w/ evident mild R facial droop, mild right weakness in all oral structures, difficulty with production of specific speech sounds, increased slurring of speech with increased rate/connected speech. Quality of Life: Good Patient Stated Goal of Speech-Language Therapy: Mr. Gibbs would like to improve in his ability to speak more clearly. Goal of therapy would be to provide strategies and exercises to improve articulation/speech clarity. Assessment Speech Production: Dysarthric Clinical Impression: Impaired Observations: The Ramos Fristoe Test of Articulation, third edition, was administered to determine accurate production of specific speech sounds in Vietnamese. On this test, at the word level, Mr. Gibbs evidenced specific difficulty with affricate sounds, specifically /dj/ as in aircraft engine dismantler or vegetable, /ch/ as in chair or teacher, and /sh/ shoe or wash. He additionally had difficulty specifically with consonant clusters when /r/ was present (brush, drum) and -st endings. In connected speech (e.g. providing a Narrative for the [employer] Theft picture, distortions of fricative/affricate sounds continued to be evident, difficulty producing multisyllabic words was also evident. Informal Voice Assessment: Voice Loudness: Mildly Loud Voice Nasal Resonance: Normal Voice Oral Resonance: Normal Voice Phonatory-based Quality: Normal Clinical Impression: Intact Tests of Speech & Lang Adults: Clinical Impression: Intact Observations: The short form of the [place] Diagnostic Aphasia Examination was used to assess receptive and expressive language. Mr. Gibbs continued to evidence mild to moderate dysarthria on this evaluation, however receptive and expressive language presented as intact with no evidence of impairment. Impressions and Recommendations Summary: Impact on Daily Function/Activity Limitations: Daily Activities: Mild Interpersonal Interactions: Moderate Education: Employment: Mild Community: Mild Prognosis for Improvement: Good Comment: Given specific practice for production of target sounds, oral motor exercised and strategies for speech production Recommendation for Speech Therapy: Outpatient Speech Therapy Frequency/Duration: One forty five minute outpatient speech therapy session once weekly for a period of one to three months. Date Range for Service Requested: Time to Reassess: 3 months Care Home Goals: Improve speech production/clarity at the level of connected speech. Short Term Goals: Goal # : At the word level, Mr. Harris will produce target sounds /dj/, /ch/ and /sh/ in all positions in words with 80% accuracy Goal Status: Goal# : At the word level, Mr. Gibbs will produce /r/ clusters with 80% accuracy Goal Status: Goal # : Given a syllable strategy (tapping, phonemic cue) Mr. Gibbs will produce 4-5 syllable words with 80% accuracy and fluency Goal Status: Goal # : Given specific cuing, Mr. Cabello will slow his speech and overproduce speech sounds with 80% accuracy Goal Status: Recommended Referrals to be Discussed with Primary Care Provider: Patient Education: Completed: Yes Patient/Caregiver Education: Described Results of Evaluation Patient expressed understanding of evaluation Comments/Barriers to Learning: Hat Forming Machine Feeder Clinican/Clinical Fellow: No Supervisory Statement: N/A Speech Language Pathologist: Joyce Hanley M.A., CCC-MIXER AND SCALER
== END | disposition home or self-care (01) ==
LOC: HO.SH 02-09 13:03
PROVIDERS: Visit Provider Internal Medicine
DX: R47.81 Slurred speech (principal)
CPT/HCPCS: 92523

== ENCOUNTER 2024-03-29 10:40 | Outpatient (REF) | payer MEDICARE, MEDICAID, SELFPAY ==
[2024-03-29 13:13] LABS: MANUAL DIFF FLAG NO
[2024-03-29 13:27] LABS: Basophils Absolute Auto 0.1 X10*3/uL (0.0-0.2); Basophils Percent Auto 0.7 % (0-2); Eosinophils Absolute Auto 0.3 X10*3/uL (0.0-0.4); Eosinophils Percent Auto 3.6 % (0-4); Hematocrit 34.9 % (42.0-52.0); Hemoglobin 11.8 g/dl (14.0-18.0); Imm Gran Abs Auto 0.03 X10*3/uL (0.00-0.03); Imm Gran Pct Auto 0.4 % (0.0-0.4); Lymphocytes Absolute Auto 1.2 X10*3/uL (1.2-4.9); Lymphocytes Percent Auto 16.9 % (20-40); Mean Corpuscular HGB Conc 33.8 g/dl (31.0-36.0); Mean Corpuscular Hemoglobin 30.1 pg (27.0-33.0); Mean Platelet Volume 10.2 fL (9.4-12.4); Monocytes Absolute Auto 0.8 X10*3/uL (0.1-1.2); Monocytes Percent Auto 11.1 % (2-11); Neutrophils Absolute Auto 4.7 x10*3/uL (2.0-8.3); Neutrophils Percent Auto 67.3 % (45-73); Platelet Count 303 X10*3/uL (160-400); Red Blood Count 3.92 X10*6/uL (4.60-5.80); Red Cell Distribution Width 12.7 % (11.0-16.0)
[2024-03-29 13:45] LABS: Alanine Aminotransferase 17 U/L (0-40); Albumin Level 4.4 g/dL (3.5-5.0); Alkaline Phosphatase 50 U/L (39-117); Anion Gap 13 (12-20); Aspartate Amino Transferase 16 U/L (5-37); Bilirubin Total 0.3 mg/dL (0.0-1.0); Blood Urea Nitrogen 15 mg/dL (9-16); C Reactive Protein < 0.10 mg/dL (< or = 0.50); Calcium 9.6 mg/dL (8.4-10.2); Carbon Dioxide 24 mmol/L (22-29); Chloride 103 mmol/L (96-108); Estimated Glomerular Filt Rate > 60; Glucose Random 102 mg/dL (60-115); Potassium 4.1 mmol/L (3.3-5.1); Sodium 136 mmol/L (135-145); Total Protein 7.1 g/dL (6.5-8.0)
[2024-03-29 13:49] LABS: Free T4 (Free Thyroxine) 1.13 ng/dL (0.71-1.85); Thyroid Stimulating Hormone 0.02 uIU/mL (0.32-4.0)
[2024-04-03 14:58] LABS: Thyroid Peroxidase Antibodies >900 IU/mL (<9)
== END 2024-03-29 10:41 | disposition home or self-care (01) ==
LOC: HO.10HDL 10:40
PROVIDERS: Visit Provider Internal Medicine
DX: E03.9 Hypothyroidism, unspecified (principal); R00.2 Palpitations
CPT/HCPCS: 36415; 80053; 84439; 84443; 85025; 86140; 86376

== ENCOUNTER 2024-06-27 10:00 | Outpatient (RCR) | payer MEDICARE, MEDICAID, SELFPAY ==
--- OUTSIDE RECORDS SUMMARY | 2024-06-05 09:36 | XMS_ITS ---
Author Organization [facility] Address [address] [place] [address] Care Team Providers Care Nursing Professor Name Role Phone Hardik Paula MD Primary Care Provider Unavaila Deni Tse Jr Unavailable REASON FOR VISIT rectal bleeding Encounters Encounter Location Date Provider Diagnosis [facility] Outpatient [address] [place], [place] [id number] 12/14/2022 Deni Connell Jr Rectal bleeding K62.5 and Radiation proctitis K62.7 ASSESSMENTS Encounter Date Diagnosis Assessment Notes Treatment Notes Treatment Clinical Notes 12/14/2022 Rectal bleeding (ICD-10 - K62.5) 12/14/2022 Radiation proctitis (ICD-10 - K62.7) PLAN OF TREATMENT No Information
--- OUTSIDE RECORDS SUMMARY | 2024-06-05 09:36 | XMS_ITS ---
Author Organization [facility] Address [address] [place] [address] Care Team Providers Care Inspector Wire Products Name Role Phone aHrdik Paula MD Primary Care Provider Deni Her Jr Unavailable REASON FOR VISIT pathology MEDICATIONS Medication SIG (Take, Route, Fr equency, Duration) Notes Start Date End Date Status Anusol-HC 25 MG 1 suppository Rectal Once a day for 30 days 07/14/2022 Active Encounters Encounter Location Date Provider Diagnosis [facility] [address] [place] [phone] 12/23/2022 Deni Connell Jr Rectal bleeding K62.5 ASSESSMENTS Encounter Date Diagnosis Assessment Notes Treatment Notes Treatment Clinical Notes 12/23/2022 Rectal bleeding (ICD-10 - K62.5) PLAN OF TREATMENT Medication Medication Name Sig Start Date Stop Date Notes Anusol-HC 25 MG 1 suppository Rectal Once a day for 30 days 07/14/2022
--- OUTSIDE RECORDS SUMMARY | 2024-06-05 09:37 | XMS_ITS | Patient Health Record ---
Author Organization [facility] Address [address] [place] [address] Care Team Providers Care Frame Aligner Name Role Phone Hardik Paula MD Primary Care Provider Deni Her Jr Unavailable ALLERGIES Allergen (clinical drug ingredient) Drug/Non Drug Allergy documented on EMR Reaction Allergy Type Onset Date Status Substance with sulfonamide structure and antibacterial mechanism of action (substance) Sulfa Antibiotics Unknown Drug Allergy Active REASON FOR REFERRAL No Information MEDICATIONS Medication SIG (Take, Route, Frequency, Duration) Notes Start Date End Date Status Anusol-HC 25 MG 1 suppository Rectal Once a day for 30 days 07/14/2022 Active Sertraline HCl 50 MG 1 tablet Orally Onc e a day for 30 day(s) 07/14/2022 Active Levothyroxine Sodium 50 MCG Oral for 90 Active pyRIDostigmine [place] 60 MG TAKE 1 TABL ET BY MOUTH THREE TIMES A DAY Oral for 90 Active LORazepam 0.5 MG Oral for 30 A ctive MiraLax (colon prep) 17 GM/SCOOP mixed with Gatorade or Crystal Light Orally begin at 5:00 p.m. the day before the procedure for 1 day 07/14/2022 Active IMMUNIZATIONS Vaccine Route Administration Date Status Comme nts Influenza Unknown 07/07/2022 Administered SOCIAL HISTORY Tobacco Use: Social History Observation Description Date Details (start date - stop date) Never Smoker NA - NA Sex Assigned At : Social History Observation Description Sex Assigned At Unknown Tobacco Use/Smoking Question Answer Notes Patient is a nonsmoker Alcohol Screen Question Answer Notes Did you have a drink contain ing alcohol in the past year? Yes How often did you have a dri nk containing alcohol in the past year? Monthly or less (1 point) How many drinks did you have on a typical day when you were drinking in the past year? 1 or 2 drinks (0 point) How often did you have 6 or more drinks on one occasion in the past year? Never (0 point) Points 1 Interpretation Negative PROBLEMS Problem Type ICD Code Onset Dates Problem Status W/U Status Risk SNOMED Code Notes Problem Dysphagia (R13.10) Active confirmed Dysphagia (28754237) Problem Rectal bleeding (K62.5) Active confirmed Painless rectal bleeding (536453275) PLAN OF TREATMENT Pending Test Test Name Order Date CBC w DIFF 07/14/2022 CBC w/o DIFF 12/03/2022 Future Test Test Name Order Date COLONOSCOPY 07/14/2022 Insurance Providers Payer Name Payer Address Payer Phone Subscriber Number Group Number Insured Name Patient Relationship to Insured Coverage Start Date Coverage End Date MEDICARE OF [place] [address] JAGJIT PARMAR [address] [id number] JUDY ARREDONDO Self - patient is the insured MEDICAID OF [facility] [address] [place] [address] [id number] JUDY ARREDONDO Self - patient is the insured MEDICAL (GENERAL) HISTORY Medical History History ICD Code prostate cancer Surgical History Surgery Date(Month/Year) hernia operation x 3
[2024-06-05 09:40] VITALS: BP 130/67; PULSE 83; RESP 16; TEMP 36.6; O2SAT 98; BMI 22.6
[2024-06-05] MEDS: SODIUM CHLORIDE 0.9% IV (10:47)
[2024-06-05] MEDS: EFGARTIGIMOD ALFA FCAB IV (10:47)
[2024-06-05 10:48] VITALS: BP 115/57; PULSE 78; RESP 16
--- NOTE | 2024-06-05 11:53 | HO.INF ---
iv line flushed with normal saline after vyvgart was done at same rate
[2024-06-05 11:54] VITALS: BP 120/69; PULSE 79; RESP 18
[2024-06-14 10:15] VITALS: BP 141/69; PULSE 56; RESP 18; TEMP 36.7
[2024-06-14] MEDS: SODIUM CHLORIDE 0.9% IV (10:51)
[2024-06-14] MEDS: EFGARTIGIMOD ALFA FCAB IV (10:51)
[2024-06-14 11:14] VITALS: BP 117/61; PULSE 85; RESP 18
[2024-06-14 11:26] VITALS: BP 130/58; PULSE 85
[2024-06-19 09:59] VITALS: BP 136/72; PULSE 79; RESP 16; TEMP 36.6; O2SAT 97
[2024-06-19] MEDS: SODIUM CHLORIDE 0.9% IV (11:08)
[2024-06-19] MEDS: EFGARTIGIMOD ALFA FCAB IV (11:08)
[2024-06-19] MEDS: 0.9 % Sodium Chloride Flush 10 ML SYRINGE 5 ML IVFLUSH (12:15)
[2024-06-19 12:16] VITALS: BP 125/63; PULSE 74; RESP 14; O2SAT 98
[2024-06-27 09:56] VITALS: BP 132/72; PULSE 79; RESP 16; TEMP 36.6; O2SAT 98
[2024-06-27] MEDS: SODIUM CHLORIDE 0.9% IV (11:31)
[2024-06-27] MEDS: EFGARTIGIMOD ALFA FCAB IV (11:31)
== END 2024-06-27 12:30 | disposition home or self-care (01) ==
LOC: HO.INF 10:00
PROVIDERS: Visit Provider Psychiatry & Neurology Neurology
DX: G70.00 Myasthenia gravis without (acute) exacerbation (principal)
CPT/HCPCS: 96365; 96374; J9332

== ENCOUNTER 2024-07-09 06:54 | Outpatient (REF) | payer MEDICARE, MEDICAID, SELFPAY ==
[2024-07-09 07:08] LABS: MANUAL DIFF FLAG NO
[2024-07-09 07:42] LABS: Basophils Absolute Auto 0.1 X10*3/uL (0.0-0.2); Basophils Percent Auto 0.6 % (0-2); Eosinophils Absolute Auto 0.8 X10*3/uL (0.0-0.4); Eosinophils Percent Auto 9.1 % (0-4); Hematocrit 33.5 % (42.0-52.0); Hemoglobin 10.9 g/dl (14.0-18.0); Imm Gran Abs Auto 0.04 X10*3/uL (0.00-0.03); Imm Gran Pct Auto 0.4 % (0.0-0.4); Lymphocytes Absolute Auto 1.3 X10*3/uL (1.2-4.9); Lymphocytes Percent Auto 14.7 % (20-40); Mean Corpuscular HGB Conc 32.5 g/dl (31.0-36.0); Mean Corpuscular Hemoglobin 29.3 pg (27.0-33.0); Mean Corpuscular Volume 90.1 fL (80.0-98.0); Mean Platelet Volume 9.9 fL (9.4-12.4); Monocytes Absolute Auto 0.9 X10*3/uL (0.1-1.2); Monocytes Percent Auto 10.3 % (2-11); Neutrophils Absolute Auto 5.8 x10*3/uL (2.0-8.3); Neutrophils Percent Auto 64.9 % (45-73); Platelet Count 322 X10*3/uL (160-400); Red Blood Count 3.72 X10*6/uL (4.60-5.80); Red Cell Distribution Width 13.5 % (11.0-16.0); White Blood Count 8.9 X10*3/uL (4.8-10.8)
[2024-07-09 08:55] LABS: Alanine Aminotransferase 31 U/L (0-40); Albumin Level 4.5 g/dL (3.5-5.0); Alkaline Phosphatase 51 U/L (39-117); Anion Gap 15 (12-20); Aspartate Amino Transferase 30 U/L (5-37); Bilirubin Total 0.4 mg/dL (0.0-1.0); Blood Urea Nitrogen 17 mg/dL (9-16); Carbon Dioxide 25 mmol/L (22-29); Chloride 105 mmol/L (96-108); Cholesterol 174 mg/dL (<200); Estimated Glomerular Filt Rate > 60; Free T4 (Free Thyroxine) 0.94 ng/dL (0.71-1.85); Glucose Fasting 114 mg/dL (60-99); HDL Cholesterol 44 mg/dL (>40); LDL Cholesterol Calculated 112 mg/dL (<100); Potassium 4.6 mmol/L (3.3-5.1); Sodium 140 mmol/L (135-145); Thyroid Stimulating Hormone 0.12 uIU/mL (0.32-4.0); Total Protein 6.9 g/dL (6.5-8.0); Triglycerides 91 mg/dL (<150)
[2024-07-09 09:00] LABS: Prostate Specific Antigen 0.11 ng/mL (<0.05-4.0)
== END 2024-07-09 06:55 | disposition home or self-care (01) ==
LOC: HO.LAB 06:54
PROVIDERS: PCP Internal Medicine; Visit Provider Internal Medicine
DX: E78.00 Pure hypercholesterolemia, unspecified (principal); M10.9 Gout, unspecified; Z12.5 Encounter for screening for malignant neoplasm of prostate
CPT/HCPCS: 36415; 80053; 80061; 84153; 84439; 84443; 85025

== ENCOUNTER 2024-10-08 10:08 | Outpatient (REF) | payer MEDICARE, MEDICAID, SELFPAY ==
--- OUTSIDE RECORDS SUMMARY | 2024-10-08 10:51 | XMS_ITS | Encounter Summary ---
Author Organization [employer] Address [address] [place] [address] Care Team Providers Care Director Water And Waste Services Name Role Phone Unavailable Primary Care Provider Unavailabl e Reason for Visit * Reason Comments Extraction Encounter Details Date Type Department Care Team (Late st Contact Info) Description 09/20/2024 9:00 AM EST Office Visit [facility]ULT DENT[facility] [address] [place] [address] Yordan Jorgensen DDS [address] [place] [address] Open fracture of tooth with nonunion, subsequent encounter (Primary Dx); Non-restorable tooth Social History Tobacco Use Types Packs/Day Years Used Date Smoking Tobacco: Never Passive Smoke Exposure: Never Smokeless Tobacco: Never Tobacco Cessation:Counseling Given: No Alcohol Use Standard Drinks/Week Comments Never 0 (1 standard drink = 0.6 oz pur e alcohol) Sex and Gender Information Value Date Recorded Sex Assigned at Male 08/21/2024 8:39 AM EST Legal Sex Male 8:32 AM EST Gender Identity Male 08/21/2024 8:39 AM EST Sexual Orientation Choose not to disclose 2023 8:39 AM EST documented as of this encounter Last Filed Vital Signs Vital Sign Reading Time Taken Comments Blood Pressure 122/68 09/20/2024 9:09 AM EST Pulse - - Temperature - - Respiratory Rate - - Oxygen Saturation - - Inhaled Oxygen Concentration - - Weight - - Height - - Body Mass Index - - documented in this encounter Progress Notes * Yordan Jorgensen DDS - 09/20/2024 9:00 AM EST Patient ID: Jonh Harris is a 74 y.o. male. Time Out: Timeout Date: 09/20/24 (ext on tooth# 10), Timeout Time: 906 Location: [facility] Tooth: Maxilla and #10 Procedure: Extraction Verified the above with patient, after school program assistant, and provider. Confirmed via patient's chart, intraorally and by radiographs. Change Booth Attendant: not applicable Chief Complaint Patient presents with Extraction Medical Hx: Vitals: Blood pressure 122/68. Past Medical History: Diagnosis Date Arthritis Seasonal allergies Medications: Outpatient Encounter Medications as of 09/20/2024 Medication Sig Dispense Refill levothyroxine (Tirosint) 50 MCG capsule Take 50 mcg by mouth. pyridostigmine (Mestinon) 60 MG tablet TAKE 2-3 TABS BY MOUTH EVERY DAY simvastatin (Zocor) 20 MG tablet Take 20 mg by mouth Once per day. acetaminophen (Tylenol) 500 MG tablet Take 1 tablet (500 mg) by mouth every 6 (six) hours if neededfor mild pain. 15 tablet 0 No facility-administered encounter medications on file as of 09/20/2024. Consent Obtained: The risks, benefits, indications, potential complications, and alternatives were explained to the patient and informed consent was obtained with good understanding. Treatment Provided: Dental procedures in this visit D7140 - EXTRACTION, ERUPTED TOOTH OR EXPOSED ROOT (ELEVATION AND/OR FORCEPS REMOVAL) 10 (Completed) Service provider: Yordna Jorgensen DDS Billing provider: Yordan Jorgensen DDS [id number] - ADJUNCTIVE GENERAL SERVICES - PROFESSIONAL VISITS - CASE PRESENTATION, SUBSEQUENT TO DETAILED AND EXTENSIVE TREATMENT PLANNING (Completed) Service provider: Yordan Jorgensen DDS Billing provider: Yordan Jorgensen DDS Diagnosis: Fractured tooth Topical: 20% Benzocaine Anesthesia: 2% Lidocaine (Xylocaine) w/ 1:100,000 epinephrine Number of Cartridges: 1 Injection Type: Buccal infiltration and Palatal infiltration Confirmed profound anesthesia. Pharyngeal curtain and bite block placed. Removed tooth with elevators and forceps. Apices intact. Surgical Extraction: Yes, #10 Socket curetted & irrigated with sterile water. Compressed alveolar bone. Sutures: None Needed All adjacent teeth intact. Hemostasis achieved. Complications: None. Pt tolerated procedure well. John stated having analgesics at home. Written and verbal post-op instructions given. Patient discharged in stable condition; ambulatory, alert, and oriented. NV: F/U as needed / referred back to Dr. Oquendo Plastic Welder: Emma Car Dentist: Yordan Bolano, DDS documented in this encounter Plan of Treatment Not on file documented as of this encounter Procedures Procedure Name Priority Date/Time Associated Diagnosis Comments 10 EXTRACTION, ERUPTED TOOTH OR EXPOSED ROOT (ELEVATION AND/OR FORCEPS REMOVAL) Routine 09/20/2024 9:00 AM EST ADJUNCTIVE GENERAL SERVICES - PROFESSIONAL VISITS - CASE PRESENTATION, SUBSEQUENT TO DETAILED AND EXTENSIVE TREATMENT PLANNING Routine 09/20/2024 9:00 AM EST documented in this encounter Visit Diagnoses Diagnosis Open fracture of tooth with nonunion, subsequent encounter- Primary Non-restorable tooth documented in this encounter
--- OUTSIDE RECORDS SUMMARY | 2024-10-08 10:51 | XMS_ITS | Clinical Summary ---
Author Organization [facility] Address [address] [place] [address] Care Team Providers Care Corporate Affairs Manager Name Role Phone Unavailable Primary Care Provider Unavailabl e Allergies Active Allergy Reactions Criticality Noted Date Comments Sulfa Antibiotics Unknown 08/21/2024 Medications levothyroxine (Tirosint) 50 MCG capsule Take 50 mcg by mouth. 10/20/2020 Active pyridostigmine (Mestinon) 60 MG tablet TAKE 2-3 TABS BY MOUTH EVERY DAY Active simvastatin (Zocor) 20 MG tablet Take 20 mg by mouth Once per day. Active acetaminophen (Tylenol) 500 MG tablet Take 1 tablet (500 mg) by mouth every 6 (six) hours if needed for mild pain. 15 tablet 08/21/2024 Active Active Problems Problem Noted Date Diagnosed Date Open fracture of tooth with nonunion 09/20/2024 Non-restorable tooth 09/20/2024 Encounters Date Type Department Care Team Description 09/20/2024 9:00 AM EST Office Visit [facility] [address] [place] [address] Yrodan Jorgensen DDS Open fracture of tooth with nonunion, subsequent encounter (Primary Dx); Non-restorable tooth 08/21/2024 11:30 AM EST Office Visit [facility] [address] [place] [address] Delisa Leal DDS Dental abscess (Primary Dx); Dental caries; Open fracture of tooth with nonunion, subsequent encounter from Last 3 Months Social History Tobacco Use Types Packs/Day Years [...] not to disclose 2023 8:39 AM EST Last Filed Vital Signs Vital Sign Reading Time Taken Comments Blood Pressure 122/68 09/20/2024 9:09 AM EST Pulse - - Temperature - - Respiratory Rate - - Oxygen Saturation - - Inhaled Oxygen Concentration - - Weight - - Height - - Body Mass Index - - Plan of Treatment Health Maintenance Due Date Last Done Comments CT Colonography 1951 Colonoscopy 1951 Colorectal Cancer Screening 1951 Dental Oral Exam 1951 Dental Prophylaxis 1951 Dental X-Ray: Bitewings 1951 Dental X-Ray: Full Mouth 1951 Depression Screening 1951 FIT DNA/Cologuard 1951 FIT 1951 FOBT 1951 Lipid Panel 1951 SDOH Screening 1951 Sigmoidoscopy 1951 Alcohol/Substance Use Screening 1963 Hepatitis C Screening 1969 DTaP/Tdap/Td Vaccines (1 - Tdap) 1970 Pneumococcal Vaccine: 50+ Years (1 of 1 - PCV) 2001 Zoster Vaccines (2 of 3) 06/23/2016 04/28/2016 COVID-19 Vaccine ( season) 2024 08/14/2022, 07/24/2021, 11/27/2020, Additional history exists Influenza Vaccine (#1) 2024 3, 07/08/2022, 07/07/2022, Additional history exists Tobacco Screening 09/20/2025 09/20/2024 RSV Patients and Patients Aged 60 years or older (1 - 1-dose 75+ series) 2026 HIB Vaccines Aged Out No longer eligi ble based on patient's age to complete this topic HPV Vaccines Aged Out No longer eligi ble based on patient's age to complete this topic Hepatitis A Vaccines Aged Out No long er eligible based on patient's age to complete this topic Hepatitis B Vaccines Aged Out No long er eligible based on patient's age to complete this topic IPV Vaccines Aged Out No longer eligi ble based on patient's age to complete this topic Meningococcal Vaccine Aged Out No abbi lizy eligible based on patient's age to complete this topic RSV under 20 months Aged Out No longe r eligible based on patient's age to complete this topic Rotavirus Vaccines Aged Out No longer eligible based on patient's age to complete this topic Procedures Procedure Name Priority Date/Time Associated Diagnosis Comments ADJUNCTIVE GENERAL SERVICES - PROFESSIONAL VISITS - CASE PRESENTATION, SUBSEQUENT TO DETAILED AND EXTENSIVE TREATMENT PLANNING Routine 09/20/2024 9:00 AM EST 10 EXTRACTION, ERUPTED TOOTH OR EXPOSED ROOT (ELEVATION AND/OR FORCEPS REMOVAL) Routine 09/20/2024 9:00 AM EST ADJUNCTIVE GENERAL SERVICES - PROFESSIONAL VISITS - CASE PRESENTATION, SUBSEQUENT TO DETAILED AND EXTENSIVE TREATMENT PLANNING Routine 08/21/2024 11:30 AM EST Dental abscess Dental caries Open fracture of tooth with nonunion, subsequent encounter INTRAORAL - PERIAPICAL FIRST RADIOGRAPHIC IMAGE Routine 08/21/2024 11:30 AM EST Dental abscess Dental caries Open fracture of tooth with nonunion, subsequent encounter ADJUNCTIVE GENERAL SERVICES - UNCLASSIFIED TREATMENT - PALLIATIVE TREATMENT OF DENTAL PAIN - PER VISIT Routine 08/21/2024 11:30 AM EST Dental abscess Dental caries Open fracture of tooth with nonunion, subsequent encounter from Last 3 Months Insurance DENTAL - HSN FULL (MEDICAID)
[2024-10-08 13:35] LABS: Hematocrit 29.2 % (42.0-52.0); Mean Corpuscular HGB Conc 30.8 g/dl (31.0-36.0); Mean Corpuscular Hemoglobin 24.4 pg (27.0-33.0); Mean Corpuscular Volume 79.1 fL (80.0-98.0); Mean Platelet Volume 10.3 fL (9.4-12.4); Platelet Count 409 X10*3/uL (160-400); Red Blood Count 3.69 X10*6/uL (4.60-5.80); Red Cell Distribution Width 15.1 % (11.0-16.0); White Blood Count 8.1 X10*3/uL (4.8-10.8)
[2024-10-08 14:35] LABS: Alanine Aminotransferase 13 U/L (0-40); Albumin Level 3.8 g/dL (3.5-5.0); Anion Gap 13 (12-20); Aspartate Amino Transferase 21 U/L (5-37); Bilirubin Total 0.2 mg/dL (0.0-1.0); Blood Urea Nitrogen 15 mg/dL (9-16); Calcium 9.5 mg/dL (8.4-10.2); Carbon Dioxide 25 mmol/L (22-29); Chloride 105 mmol/L (96-108); Estimated Glomerular Filt Rate > 60; Glucose Random 97 mg/dL (60-115); Iron 33 mcg/dL (45-160); Percent Iron Saturation 12 % (15-50); Potassium 4.6 mmol/L (3.3-5.1); Sodium 138 mmol/L (135-145); Total Iron Binding Capacity 265 mcg/dL (228-428); Total Protein 7.1 g/dL (6.5-8.0); Unsaturated Iron Binding 232 ug/dL
[2024-10-08 14:36] LABS: Free T4 (Free Thyroxine) 0.94 ng/dL (0.71-1.85); Thyroid Stimulating Hormone 0.18 uIU/mL (0.32-4.0)
[2024-10-08 14:48] LABS: Atypical Lymph Absolute Manual 0.2 x10*3/uL; Atypical Lymphs Percent Manual 2 % (0-6); Basophils Abs Manual 0.1 X10*3/uL (0.0-0.2); Basophils Percent Manual 1 % (0-2); Eosinophils Absolute Manual 0.6 X10*3/uL (0.0-0.4); Eosinophils Percent Manual 7 % (0-4); Lymphocytes Absolute Manual 1.5 X10*3/uL (1.2-4.9); Lymphocytes Percent Manual 18 % (20-40); Metamyelocytes Absolute 0.3 X10*3/uL; Metamyelocytes Percent 4 %; Monocytes Absolute Manual 1.1 X10*3/uL (0.1-1.2); Monocytes Percent Manual 13 % (2-11); Myelocytes Absolute 0.2 X10*/uL; Myelocytes Percent 2 %; Neutrophils Percent Manual 53 % (45-73)
[2024-10-08 14:50] LABS: Toxic Vacuolation PRESENT
[2024-10-08 14:54] LABS: Platelet Estimate SLIGHTLY INCREASED (NORMAL); Platelet Morphology Comment NORMAL; RBC Morphology NOTED
[2024-10-08 14:55] LABS: Hypochromasia 1+ (5-14) /OIF; Schistocytes 1+ (0-2) /OIF
[2024-10-08 15:22] LABS: Band Neutrophils Percent 0 % (3-5); Neutrophils Absolute Manual 4.3 X10*3/uL (2.0-8.3)
[2024-10-08 16:51] LABS: Alkaline Phosphatase 45 U/L (39-117)
== END 2024-10-08 10:09 | disposition home or self-care (01) ==
LOC: HO.10HDL 10:08
PROVIDERS: Visit Provider Internal Medicine
DX: K21.9 Gastro-esophageal reflux disease without esophagitis (principal); E03.9 Hypothyroidism, unspecified
CPT/HCPCS: 36415; 80053; 83540; 84439; 84443; 85007; 85027

== ENCOUNTER 2025-01-17 09:28 | Outpatient (AMB) | payer MEDICARE, MEDICAID, SELFPAY ==
--- NOTE | 2025-01-17 08:55 | A.OFFPC_ITS ---
Vital Signs 01/17/25 08:59 Height 5 ft 7 in Weight 164 lb BMI 25.7 BP 128/70 Blood Pressure Location Lt brachial Position Sitting Pulse 73 Pulse Source Pulse Oximeter Temp 97.7 F Temp Source Axillary Pulse Oximetry (%) 96 Oxygen Delivery Method Room Air Intake Visit Reasons: Routine Clothes Model Required: No Accompanied by: Spouse Allergies Sulfa (Sulfonamide Antibiotics) [SULFA (SULFONAMIDE ANTIBIOTICS)] Allergy (Intermediate, Verified 01/17/25 09:00) RASH Tobacco use date assessed: 01/17/25 Fall risk assessment: No Falls in past year Last assessed Fall Risk: 01/17/25 Dental Screening Dental Screen Date: 01/17/25 Did you have a dental visit in the last 12 months?: Yes Did you have a dental problem in the last 6 months where you did not have access to dental care?: No HPI HPI Comments History of Present Illness Details 74 year old male with a past medical his tory of hypothyroid, hyperlipidemia, anemia, myasthenia gravis presenting for follow up. Last seen in October 2024 by pcp Hypothyroid: On levothyroxine 50mcg daily. Neurology: Had vyvgard. Symptoms improved now having recurrent double vision and weakness. Following with Dr Robertson -will have an appointment on Tuesday. Colonoscopy: Last colonoscopy 12/2022. ROS CONSTITUTIONAL: Denies weight loss, fever and chills. HEENT: Denies changes in vision and hearing. RESPIRATORY: Denies SOB and cough. CV: Denies palpitations and CP GI: Denies abdominal pain, nausea, vomiting and diarrhea. : Denies dysuria and urinary frequency. MSK: Denies new myalgia and joint pain. SKIN: Denies rash and pruritus. NEUROLOGICAL: Denies headache PSYCHIATRIC: Denies recent changes in mood. PHYSICAL EXAM: GENERAL: Alert and oriented x 3. NAD EYES: EOMI. Anicteric. HENT: Moist mucous membranes. No scleral icterus. No cervical lymphadenopathy. LUNGS: Clear to auscultation bilaterally. CARDIOVASCULAR: Regular rate and rhythm. No murmur. No JVD. ABDOMEN: Soft, non-tender +bs EXTREMITIES: No edema. Non-tender. SKIN: No rashes or lesions. Warm. NEUROLOGIC: No focal neurological deficits. CN II-XII grossly intact PSYCHIATRIC: Cooperative. Appropriate mood and affect [facility] Medical History Rectal mass Rectal bleeding Prostate cancer Elevated PSA Depression Epidermal cyst Recurrent left inguinal hernia Carbuncle of buttock Surgical History History of colonoscopy (~12/14/22) H/O hernia repair Family History Father No problems noted. Mother Heart valve problem Social History Household Members: Family Housing: House Do you presently have visiting nurse or other home services: No Alcohol intake: never Patient Tobacco Use Status: Former Tobacco user e-Cigarette/Vaping Use: Former Use Second Hand Smoke Exposure: No Advance Directives Date on File: 06/19/20 service: No Current occupational status: retired Cognitive needs: No Hearing needs: Yes (right ear) Vision needs: No Questionnaire PHQ-9 Over the last 2 weeks, how often have you been bothered by any of the following problems? 1. Little interest or pleasure in doing things: not at all 2. Feeling down, depressed, or hopeless: not at all 3. Trouble falling or staying asleep, or sleeping too much: not at all 4. Feeling tired or having little energy: not at all 5. Poor appetite or overeating: not at all 6. Feeling bad about yourself - or that you are a failure or have let yourself or your family down: not at all 7. Trouble concentrating on things, such as reading the newspaper or watching television: not at all 8. Moving or speaking so slowly that other people could have noticed. Or the opposite - being so fidgety or restless that you have been moving around a lot more than usual: not at all 9. Thoughts that you would be better off or of hurting yourself in some way: not at all Total score: 0 Depression Screening Interpretation: Negative Depression Screening Done: Yes 29813 - PHQ-9 Billing: Yes Source: Developed by Drs. Prince Garcia, Quynh Ballard, Chris Kirkpatrick and colleagues, with an educational srinivas from [employer]. Thrive Questionnaire Date Thrive assessed: 01/17/25 I am a: Patient Within the past 12 months, did the food you bought not last and you didn't have the money to get more?: Never true Within the past 12 months, did you worry whether your food would run out before you got money to buy more?: Never true Do you have trouble paying for medicines?: No Do you have trouble getting transportation to medical appointments?: No Do you have trouble paying your heating and electricity bill?: No Do you have trouble taking care of your child, family member or friend?: No Do you have trouble with day-to-day activities such as bathing, preparing meals, shopping, managing finances, etc.?: No Are you currently unemployed and looking for a job?: No Are you interested in more education?: No THRIVE Score: 0 AUDIT C Alcohol Use Questionnaire (AUDIT-C) 1. How often do you have a drink containing alcohol?: Monthly or less 2. How many drinks containing alcohol do you have on a typical day when you are drinking?: 1 or 2 3. How often do you have six or more drinks on one occasion?: Less than monthly Total Score: 2 RENEE-7 AMB Questionnaire RENEE-7 Date RENEE - 7 assessed: 01/17/25 Feeling nervous, anxious, or on edge: 0 = Not at all Not being able to stop or control worryin = Not at all Worrying too much about different things: 0 = Not at all Trouble relaxin = Not at all Being so restless that it is hard to sit still: 0 = Not at all Becoming easily annoyed or irritable: 0 = Not at all Feeling afraid as if something awful might happen: 0 = Not at all Total RENEE-7 score (0-4 normal; 5-9 mild; 10-14 moderate; 15-21 severe): 0 Source: Developed by Drs. Prince Garcia, Quynh Ballard, Chris Kirkpatrick and colleagues, with an educational srinivas from [employer]. Physical exam (Primary Care) Vital Signs: Last Vital Signs Temp 97.7 F 01/17/25 08:59 Pulse 73 01/17/25 08:59 BP 128/70 01/17/25 08:59 Pulse Ox 96 01/17/25 08:59 Oxygen Delivery Method Room Air 01/17/25 08:59 BMI result Body Mass Index 25.7 Tobacco/Smoking Status: Tobacco use Status Tobacco use date assessed 01/17/25 01/17/25 09:01 Patient Tobacco Use Status Former Tobacco user 01/17/25 09:40 e-Cigarette/Vaping Use Former Use 01/17/25 09:40 PHQ-9: PHQ-9 Score PHQ-9: Total score 0 01/17/25 09:48 Depression Screening Interpretation: Negative Thrive Assessment: Date of Thrive Assessment Date Thrive assessed 01/17/25 01/17/25 09:01 Coding Level of Care Code New Pt Level 4 (69158) Complex EM visit Add On G2211 Diagnoses Elevated glucose R73.09 History of prostate cancer Z85.46 Fatigue, unspecified type R53.83 Fatigue type: unspecified Additional Codes PHQ-9 - 19789 - PHQ-9 Billing: Yes ([id number]) Assessment & Plan Assessment & Plan (1) Elevated glucose: Code(s): R73.09 - Other abnormal glucose Category: Medical (2) History of prostate cancer: Code(s): Z85.46 - Personal history of malignant neoplasm of prostate Category: Medical (3) Fatigue: Code(s): R53.83 - Other fatigue Category: Medical Qualifiers: Fatigue type: unspecified Qualified Code(s): R53.83 - Other fatigue Plan 74 y/o to establish care. Anemia-referral GI. Labs ordered Anxiety/insomnia-continue xanax Orders: Orders Complete Blood Count Auto Diff 01/17/25 D64.9 - Anemia, unspecified, Z85.46 - Personal history of malignant neoplasm of prostate, Z87.19 - Personal history of other diseases of the digestive system Pathologist Review - CBC 01/17/25 D64.9 - Anemia, unspecified, R53.83 - Other fatigue UA CC w/rflx Micro + Cult 01/17/25 D64.9 - Anemia, unspecified, R53.83 - Other fatigue Hemoglobin A1c 01/17/25 R73.09 - Other abnormal glucose IRON PROFILE 01/17/25 D64.9 - Anemia, unspecified, Z85.46 - Personal history of malignant neoplasm of prostate, Z87.19 - Personal history of other diseases of the digestive system Vitamin B12 and Folate 01/17/25 D64.9 - Anemia, unspecified, Z85.46 - Personal history of malignant neoplasm of prostate, Z87.19 - Personal history of other diseases of the digestive system TSH reflex Free T4 01/17/25 D64.9 - Anemia, unspecified, Z85.46 - Personal history of malignant neoplasm of prostate, Z87.19 - Personal history of other diseases of the digestive system Comprehensive Met. Panel 01/17/25 D64.9 - Anemia, unspecified, Z85.46 - Personal history of malignant neoplasm of prostate, Z87.19 - Personal history of other diseases of the digestive system Referrals Gastroenterology Referral D64.9 - Anemia, unspecified, Z87.19 - Personal history of other diseases of the digestive system Medications: Changed From alprazolam 1 tab PO BID PRN Anxiety To alprazolam 0.25 mg PO BID PRN 60 tabs 3RF Anxiety 30 days
[2025-01-17 08:59] VITALS: BP 128/70; PULSE 73; TEMP 36.5; O2SAT 96; BMI 25.7
--- OUTSIDE RECORDS SUMMARY | 2025-01-17 10:13 | XMS_ITS | Clinical Summary ---
Author Organization [employer] Address [address] [facility] [address] [place] [address] Care Team Providers Care Lan Specialist Name Role Phone Unavailable Primary Care Provider [...] tooth with nonunion 09/20/2024 Non-restorable tooth 09/20/2024 Social History Tobacco Use Types Packs/Day Years [...] (2 of 3) 06/23/2016 04/28/2016 COVID-19 Vaccine (5 - season) 2024 08/14/2022, 07/24/2021, 11/27/2020, Additional history [...] on patient's age to complete this topic Insurance DENTAL - HSN FULL (MEDICAID)
== END 2025-01-17 10:06 | disposition home or self-care (01) ==
LOC: HO.HMCHD 09:29
PROVIDERS: PCP Internal Medicine; Visit Provider Internal Medicine
DX: R73.09 Other abnormal glucose (principal); Z85.46 Personal history of malignant neoplasm of prostate; R53.83 Other fatigue

== ENCOUNTER → 2025-01-17 09:28 | Outpatient (BNVA) | payer MEDICARE, MEDICAID, SELFPAY | PROVIDERS: PCP Internal Medicine; Visit Provider Internal Medicine | DX: Z13.89 Encounter for screening for other disorder (principal) | CPT/HCPCS: 96127; 99202 ==

== ENCOUNTER 2025-01-17 10:11 | Outpatient (REF) | payer MEDICARE, MEDICAID, SELFPAY ==
--- OUTSIDE RECORDS SUMMARY | 2025-01-17 11:10 | XMS_ITS | Clinical Summary ---
Author Organization [employer] Address [address] [facility] [address] [place] [address] Care Team Providers Care Rigging Loft Repairer Name Role Phone Unavailable Primary Care Provider [...]
[2025-01-17 13:43] LABS: MANUAL DIFF FLAG NO
[2025-01-17 13:46] LABS: Basophils Absolute Auto 0.1 X10*3/uL (0.0-0.2); Basophils Percent Auto 0.7 % (0-2); Eosinophils Absolute Auto 0.4 X10*3/uL (0.0-0.4); Eosinophils Percent Auto 5.6 % (0-4); Hematocrit 30.4 % (42.0-52.0); Hemoglobin 9.6 g/dl (14.0-18.0); Imm Gran Abs Auto 0.02 X10*3/uL (0.00-0.03); Imm Gran Pct Auto 0.3 % (0.0-0.4); Lymphocytes Percent Auto 14.6 % (20-40); Mean Corpuscular HGB Conc 31.6 g/dl (31.0-36.0); Mean Corpuscular Hemoglobin 23.8 pg (27.0-33.0); Mean Corpuscular Volume 75.2 fL (80.0-98.0); Monocytes Absolute Auto 0.9 X10*3/uL (0.1-1.2); Monocytes Percent Auto 12.6 % (2-11); Neutrophils Absolute Auto 4.7 x10*3/uL (2.0-8.3); Neutrophils Percent Auto 66.2 % (45-73); Platelet Count 320 X10*3/uL (160-400); Red Blood Count 4.04 X10*6/uL (4.60-5.80)
[2025-01-17 13:58] LABS: Estimated Average Glucose 117 mg/dL; Hemoglobin A1c % 5.7 % (<6.0)
[2025-01-17 14:22] LABS: Alanine Aminotransferase 21 U/L (0-40); Albumin Level 4.3 g/dL (3.5-5.0); Alkaline Phosphatase 52 U/L (39-117); Anion Gap 13 (12-20); Aspartate Amino Transferase 23 U/L (5-37); Bilirubin Total 0.3 mg/dL (0.0-1.0); Blood Urea Nitrogen 15 mg/dL (9-16); Calcium 9.6 mg/dL (8.4-10.2); Carbon Dioxide 25 mmol/L (22-29); Chloride 105 mmol/L (96-108); Estimated Glomerular Filt Rate > 60; Glucose Random 104 mg/dL (60-115); Iron 66 mcg/dL (45-160); Percent Iron Saturation 20 % (15-50); Potassium 4.3 mmol/L (3.3-5.1); Sodium 139 mmol/L (135-145); Total Iron Binding Capacity 324 mcg/dL (228-428); Total Protein 7.2 g/dL (6.5-8.0); Unsaturated Iron Binding 258 ug/dL
[2025-01-17 14:31] LABS: Folate 12.5 ng/mL (> or = 4.0); Vitamin B12 549 pg/mL (200-900)
[2025-01-17 14:35] LABS: TSH reflex Free T4 0.68 uIU/mL (0.32-4.0)
== END 2025-01-17 10:12 | disposition home or self-care (01) ==
LOC: HO.10HDL 10:11
PROVIDERS: Visit Provider Internal Medicine
DX: I10 Essential (primary) hypertension (principal); D64.9 Anemia, unspecified; Z87.19 Personal history of other diseases of the digestive system; Z85.46 Personal history of malignant neoplasm of prostate; R53.83 Other fatigue; R73.09 Other abnormal glucose
CPT/HCPCS: 80053; 82607; 82746; 83036; 83540; 84443; 85025; 96127; 99202

== ENCOUNTER 2025-02-15 10:26 | Outpatient (AMB) | payer MEDICARE, MEDICAID, SELFPAY ==
[2025-02-15 10:34] VITALS: BP 132/76; PULSE 70; TEMP 36.5; O2SAT 96; BMI 24.9
--- NOTE | 2025-02-15 10:34 | A.OFFPC_ITS ---
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 Required: No Accompanied by: Sister Allergies Sulfa (Sulfonamide Antibiotics) [SULFA (SULFONAMIDE ANTIBIOTICS)] Allergy (Intermediate, Verified 02/15/25 10:37) RASH Tobacco use date assessed: 01/17/25 Fall risk assessment: No Falls in past year Last assessed Fall Risk: 02/15/25 Dental Screening Dental Screen Date: 02/15/25 Did you have a dental visit in the last 12 months?: Yes Did you have a dental problem in the last 6 months where you did not have access to dental care?: No HPI HPI Comments History of Present Illness Details 74 year old male with a past medical his tory of hypothyroid, hyperlipidemia, anemia, myasthenia gravis presenting for follow up Hypothyroid: On levothyroxine 50mcg daily. TSH wnl Neurology: Had vyvgard. Is being scheduled for another 4 infusions for March. Symptoms had improved now having recurrent double vision and weakness. Following with Dr Robertson He has lost weight and he is fatigue. He is anemic. Was referred to GI but declines scheduling. He wants to see how he feels after the vyvgard. Colonoscopy: Last colonoscopy 12/2022. ROS see HPI PHYSICAL EXAM: GENERAL: Alert and oriented x 3. NAD EYES: EOMI. Anicteric. HENT: Moist mucous membranes. No scleral icterus. No cervical lymphadenopathy. LUNGS: Clear to auscultation bilaterally. CARDIOVASCULAR: Regular rate and rhythm. No murmur. No JVD. ABDOMEN: Soft, non-tender +bs EXTREMITIES: No edema. Non-tender. SKIN: No rashes or lesions. Warm. NEUROLOGIC: No focal neurological deficits. CN II-XII grossly intact PSYCHIATRIC: Cooperative. Appropriate mood and affect [facility] Medical History Rectal mass Rectal bleeding Prostate cancer Elevated PSA Depression Epidermal cyst Recurrent left inguinal hernia Carbuncle of buttock Surgical History History of colonoscopy (~12/14/22) H/O hernia repair Family History Father No problems noted. Mother Heart valve problem Social History Household Members: Family Housing: House Do you presently have visiting nurse or other home services: No Alcohol intake: never Patient Tobacco Use Status: Former Tobacco user e-Cigarette/Vaping Use: Former Use Second Hand Smoke Exposure: No Advance Directives Date on File: 06/19/20 service: No Current occupational status: retired Cognitive needs: No Hearing needs: Yes (right ear) Vision needs: No Questionnaire PHQ-9 Over the last 2 weeks, how often have you been bothered by any of the following problems? 1. Little interest or pleasure in doing things: not at all 2. Feeling down, depressed, or hopeless: not at all 3. Trouble falling or staying asleep, or sleeping too much: not at all 4. Feeling tired or having little energy: not at all 5. Poor appetite or overeating: not at all 6. Feeling bad about yourself - or that you are a failure or have let yourself or your family down: not at all 7. Trouble concentrating on things, such as reading the newspaper or watching television: not at all 8. Moving or speaking so slowly that other people could have noticed. Or the opposite - being so fidgety or restless that you have been moving around a lot more than usual: not at all 9. Thoughts that you would be better off or of hurting yourself in some way: not at all Total score: 0 Depression Screening Interpretation: Negative Depression Screening Done: Yes [id number] - PHQ-9 Billing: Yes Source: Developed by Drs. Prince Garcia, Quynh Ballard, Chris Kirkpatrick and colleagues, with an educational srinivas from [employer]. Thrive Questionnaire Date Thrive assessed: 02/15/25 I am a: Patient Within the past 12 months, did the food you bought not last and you didn't have the money to get more?: Never true Within the past 12 months, did you worry whether your food would run out before you got money to buy more?: Never true Do you have trouble paying for medicines?: No Do you have trouble getting transportation to medical appointments?: No Do you have trouble paying your heating and electricity bill?: No Do you have trouble taking care of your child, family member or friend?: No Do you have trouble with day-to-day activities such as bathing, preparing meals, shopping, managing finances, etc.?: No Are you currently unemployed and looking for a job?: No Are you interested in more education?: No THRIVE Score: 0 AUDIT C Alcohol Use Questionnaire (AUDIT-C) 1. How often do you have a drink containing alcohol?: Never 3. How often do you have six or more drinks on one occasion?: Never Total Score: 0 RENEE-7 AMB Questionnaire RENEE-7 Date RENEE - 7 assessed: 02/15/25 Feeling nervous, anxious, or on edge: 1 = Several days Not being able to stop or control worryin = Not at all Worrying too much about different things: 0 = Not at all Trouble relaxin = Not at all Being so restless that it is hard to sit still: 0 = Not at all Becoming easily annoyed or irritable: 0 = Not at all Feeling afraid as if something awful might happen: 0 = Not at all Total RENEE-7 score (0-4 normal; 5-9 mild; 10-14 moderate; 15-21 severe): 1 Source: Developed by Drs. Prince Garcia, Quynh Ballard, Chris Kirkpatrick and colleagues, with an educational srinivas from [employer]. Physical exam (Primary Care) Vital Signs: Last Vital Signs Temp 97.7 F 02/15/25 10:34 Pulse 70 02/15/25 10:34 BP 132/76 02/15/25 10:34 Pulse Ox 96 02/15/25 10:34 Oxygen Delivery Method Room Air 02/15/25 10:34 BMI result Body Mass Index 24.9 Tobacco/Smoking Status: Tobacco use Status Tobacco use date assessed 01/17/25 02/15/25 10:39 Patient Tobacco Use Status Former Tobacco user 02/15/25 10:39 e-Cigarette/Vaping Use Former Use 02/15/25 10:39 PHQ-9: PHQ-9 Score PHQ-9: Total score 0 02/15/25 10:39 Depression Screening Interpretation: Negative Thrive Assessment: Date of Thrive Assessment Date Thrive assessed 02/15/25 02/15/25 10:39 Coding Level of Care Code Est Pt Level 4 (54915) Complex EM visit Add On G2211 Diagnoses Fatigue, unspecified type R53.83 Fatigue type: unspecified Iron deficiency anemia, unspecified iron deficiency anemia type D50.9 Anemia type: iron deficiency Iron deficiency anemia type: unspecified iron deficiency Multiple sclerosis G35 Additional Codes PHQ-9 - 09039 - PHQ-9 Billing: Yes ([id number]) Assessment & Plan Assessment & Plan (1) Fatigue: Code(s): R53.83 - Other fatigue Category: Medical Qualifiers: Fatigue type: unspecified Qualified Code(s): R53.83 - Other fatigue (2) Anemia: Code(s): D64.9 - Anemia, unspecified Category: Medical Qualifiers: Anemia type: iron deficiency Iron deficiency anemia type: unspecified iron deficiency Qualified Code(s): D50.9 - Iron deficiency anemia, unspecified (3) Multiple sclerosis: Code(s): G35 - Multiple sclerosis Category: Medical Plan 74 year old for follow up Anemia-declines GI. Discussed risk of missing malignancy. Repeat CBC one month MS-fatigued. Likely multifactorial. Continue follow up neurology. armodafinil ordered Orders: Orders Complete Blood Count Auto Diff Today D64.9 - Anemia, unspecified Medications: New armodafinil 150 mg PO QAM 90 tabs 3RF
--- OUTSIDE RECORDS SUMMARY | 2025-02-15 11:26 | XMS_ITS | Clinical Summary ---
Author Organization [employer] Address [address] [place] [address] Care Team Providers Care Commercial Sales Specialist Name Role Phone Unavailable Primary Care [...] 07/24/2021, 11/27/2020, Additional history exists Influenza Vaccine (Season Ended) 2025 06/30/2023, 07/08/2022, 07/07/2022, Additional history exists Tobacco Screening [...] patient's age to complete this topic Meningococcal B Vaccine Aged Out No l onger eligible based on patient's age to complete [...]
== END 2025-02-15 11:41 | disposition home or self-care (01) ==
LOC: HO.HMCHD 10:26
PROVIDERS: PCP Internal Medicine; Visit Provider Internal Medicine
DX: R53.83 Other fatigue (principal); D50.9 Iron deficiency anemia, unspecified; G35 Multiple sclerosis

== ENCOUNTER → 2025-02-15 10:26 | Outpatient (BNVA) | payer MEDICARE, MEDICAID, SELFPAY | PROVIDERS: PCP Internal Medicine; Visit Provider Internal Medicine | DX: D50.9 Iron deficiency anemia, unspecified (principal); R53.83 Other fatigue; G35 Multiple sclerosis; Z13.31 Encounter for screening for depression; Z13.30 Encounter for screening examination for mental health and behavioral disorders, unspecified | CPT/HCPCS: 96127; 99212 ==

== ENCOUNTER 2025-04-17 09:23 | Outpatient (AMB) | payer MEDICARE, MEDICAID, SELFPAY ==
--- NOTE | 2025-04-17 09:40 | MHC.OFFVIS ---
Intake Visit Reasons: 6 month Allergies Sulfa (Sulfonamide Antibiotics) (SULFA (SULFONAMIDE ANTIBIOTICS)) Allergy (Intermediate, Verified 02/15/25 10:37) RASH HPI Comments Details: 74 yo man with h/o prostate ca s/p XRT, anxiety disorder, and antibody positive generalized Myasthenia Gravis diagnosed in 2021 with presentation of double vision, ptosis, and dysarthria. He did not tolerate prednisone, did not want to take azathioprine stating that he did not want to have cancer, and did not want to take ivIg either, though he improved on it. Vyvgart was started in May. Last infusion was on May 04. This time it did not work as as well as before. It seems to wear off. Swallowing is ok. Speaking is good. Breathing is good. He is seeing double now and then. [facility] Medical History (Updated 04/17/25 @ 09:44 by Susan Robertson MD) HLD (hyperlipidemia) Myasthenia gravis Peripheral neuropathy Cerebral microvascular disease Insomnia Depression with anxiety Rectal mass Rectal bleeding Prostate cancer Elevated PSA Depression Epidermal cyst Recurrent left inguinal hernia Carbuncle of buttock Surgical History History of colonoscopy (~12/14/22) H/O hernia repair Family History Father No problems noted. Mother Heart valve problem Social History Household Members: Family Housing: House Do you presently have visiting nurse or other home services: No Alcohol intake: never Patient Tobacco Use Status: Former Tobacco user e-Cigarette/Vaping Use: Former Use Second Hand Smoke Exposure: No Advance Directives Date on File: 06/19/20 service: No Current occupational status: retired Cognitive needs: No Hearing needs: Yes (right ear) Vision needs: No Review of Systems Const Details: - Eyes: Reports diplopia, particularly affecting the left eye. - Neurological: Reports sleep disturbances. - General: Reports seasonal allergies causing additional fatigue. Physical Exam Neuro Other: Mental Status: Alert and oriented to person, place, and time. Normal attention. Normal spontaneous speech, fluency, and comprehension. No obvious issues with mood and memory. Affect is appropriate. Cranial Nerves: CN II: Visual [place] full to confrontation, visual acuity intact. CN III, IV, : Pupils equal, round, reactive to light and accommodation. Extraocular movements are normal. CN V: Facial sensation is normal. CN VII: Facial movements symmetrical. CN VIII: Hearing intact to bedside conversation is normal. CN IX, X: Palate elevates symmetrically. CN XI: Shoulder shrug and head turn symmetrical. CN XII: Tongue midline without atrophy or fasciculation. No ptosis Extrapyramidal: Full facial expressions and blinking. No rigidity. Movements are appropriate with no tremor or abnormality. Speech: Normal; no dysarthria or tremor. Assessment & Plan Assessment & Plan (1) Myasthenia gravis: Comment: Meds tried: prednisone, azathioprine, pyridostigmine, ivIg Ab titres at [facility] in February 2022: all three were high MRI brain and orbits at [facility] in Nov 2023: Minimal MVD, R frontal venous angioma Chest CT at [facility] in 2021: no mediastinal mass. small pulm nodules MRI brain WO at [facility] in January 2022: mild MVD NICS at [facility] in Sep 2021: [place] NCV/EMG LE Bilateral multilevel mid and lower lumbar radiculopathy. 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 MRI brain WO at [facility] in January 2022: mild MVD CT brain WO at [facility] in Sep 2021: OK. Code(s): G70.00 - Myasthenia gravis without (acute) exacerbation Category: Medical (2) Insomnia: Code(s): G47.00 - Insomnia, unspecified Category: Medical Qualifiers: Insomnia type: drug-induced Qualified Code(s): F19.982 - Other psychoactive substance use, unspecified with psychoactive substance-induced sleep disorder Plan Impression: a: Antibody positive generalized myasthenia gravis b: Insomnia Rec: a: Vyvgart treatment, last infusion on May 04, with good response and resolution of many symptoms though not all. b: Gabapentin 300mg one at night for insomnia c: Revaluation for Vyvgart dose in mid-Jun d: Pyridostigmine 60mg 2-3 a day Medications: New gabapentin 300 mg PO DAILY 90 caps 0RF Coding Level of Care Code Tele New Pt Level 4 (32790) Diagnoses Myasthenia gravis G70.00 Drug-induced insomnia F19.982 Insomnia type: drug-induced
--- OUTSIDE RECORDS SUMMARY | 2025-04-17 09:48 | XMS_ITS | Clinical Summary ---
Author Organization [employer] Address [address] [place] [address] Care Team Providers Care Od Grinder Operator Name Role Phone Unavailable Primary Care Provider [...] 11/27/2020, Additional history exists Influenza Vaccine (#1) 2025 3, 07/08/2022, 07/07/2022, Additional history exists Tobacco [...]
== END 2025-04-17 09:53 | disposition home or self-care (01) ==
LOC: HO.HSM 09:24
PROVIDERS: PCP Internal Medicine; Referring Provider Internal Medicine; Visit Provider Psychiatry & Neurology Neurology
DX: G70.00 Myasthenia gravis without (acute) exacerbation (principal); F19.982 Other psychoactive substance use, unspecified with psychoactive substance-induced sleep disorder
CPT/HCPCS: 99214

== ENCOUNTER → 2025-04-17 09:23 | Outpatient (BNVA) | payer MEDICARE, MEDICAID, SELFPAY | PROVIDERS: PCP Internal Medicine; Referring Provider Internal Medicine; Visit Provider Psychiatry & Neurology Neurology | DX: G70.00 Myasthenia gravis without (acute) exacerbation (principal); F19.982 Other psychoactive substance use, unspecified with psychoactive substance-induced sleep disorder | CPT/HCPCS: 99212 ==

== ENCOUNTER 2025-05-16 09:21 | Outpatient (AMB) | payer MEDICARE, MEDICAID, SELFPAY ==
--- NOTE | 2025-05-16 09:26 | A.OFFPC_ITS ---
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 The patient reports persistent discomfort characterized by itchiness and fluid accumulation in the ear. This issue recurs annually around May, concurrent with his allergic rhinitis aggravated by fall allergens. He has been utilizing eardrops, specifically Neomycin and Polymyxin, prescribed by Dr. Pichardo, which he reports as effective in loosening the earwax. He recently managed to extract a significant amount of wax, alleviating ear fullness but continues experiencing symptoms due to limited stock of the eardrops. 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 He expresses concern over the diminishing quantity and effectiveness of the drops, as well as the fluid accumulation and ear discomfort. Medical History: - Myasthenia Gravis - Allergic Rhinitis - Cerumen Impaction - Nosebleeds (Epistaxis) - Arthritis - Hypothyroidism (Past) - Anemia (Past) Medications: - Pyridostigmine for Myasthenia Gravis - Vivgard infusions (dates: March 14, 09 10, ) for Myasthenia Gravis - Alprazolam (used rarely) for anxiety - Gabapentin for sleep - Iron supplements for anemia - Neomycin and Polymyxin eardrops for ce rumen management Family History: - Mother with arthritis Diagnostic Results: - Normal thyroid function tests, previou sly suppressed. - Hemoglobin was 9.6, with follow-up imp rovement post iron supplementation. Social: - Reports staying active by walking his dog twice a day. - Reports pain from arthritis in the up er thighs. - Lives independently and maintains an a ctive lifestyle. [facility] Medical History (Updated 05/16/25 @ 09:53 by Jatinder De Paz MD) Benzodiazepine abuse, episodic Arthritis Epistaxis not due to trauma Cerumen impaction Hypothyroidism HLD (hyperlipidemia) Myasthenia gravis Peripheral neuropathy Cerebral microvascular disease Insomnia Depression with anxiety Rectal mass Rectal bleeding Prostate cancer Elevated PSA Depression Epidermal cyst Recurrent left inguinal hernia Carbuncle of buttock Surgical History History of colonoscopy (~12/14/22) H/O hernia repair Family History Father No problems noted. Mother Heart valve problem Social History Household Members: Family Housing: House Do you presently have visiting nurse or other home services: No Alcohol intake: never Patient Tobacco Use Status: Former Tobacco user e-Cigarette/Vaping Use: Former Use Second Hand Smoke Exposure: No Advance Directives Date on File: 06/19/20 service: No Current occupational status: retired Cognitive needs: No Hearing needs: Yes (right ear) Vision needs: No Questionnaire Thrive Questionnaire Date Thrive assessed: 02/15/25 AUDIT C Alcohol Use Questionnaire (AUDIT-C) 1. How often do you have a drink containing alcohol?: 4 or more times a week 2. How many drinks containing alcohol do you have on a typical day when you are drinking?: 1 or 2 Total Score: 4 RENEE-7 AMB Questionnaire RENEE-7 Date RENEE - 7 assessed: 02/15/25 Source: Developed by Drs. Prince Garcia, Quynh Ballard, Chris Kirkpatrick and colleagues, with an educational srinivas from [employer]. Review of Systems Const Details: - Ears: Reports discomfort with itchiness and fluid in the left ear due to cerumen impaction. - Neurological: Denies weakness but occasionally feels tired towards the end of the day. - Hematologic: Denies severe symptoms of anemia; previously treated with iron. - Musculoskeletal: Reports joint pain from arthritis, especially in the fingers and upper thighs. - Respiratory: Denies respiratory issues but aware of respiratory depression risk from Alprazolam. - Nose: Reports frequent nosebleeds from the right nostril especially after nose -blowing. All systems reviewed & are unremarkable except as reviewed in HPI and above Physical exam (Primary Care) Vital Signs: Last Vital Signs Temp 98.7 F 05/16/25 09:32 Pulse 69 05/16/25 09:32 Resp 18 05/16/25 09:32 BP 138/68 05/16/25 09:32 Pulse Ox 98 05/16/25 09:32 Oxygen Delivery Method Room Air 05/16/25 09:32 BMI result Body Mass Index 24.7 Tobacco/Smoking Status: Tobacco use Status Tobacco use date assessed 01/17/25 05/16/25 09:35 Patient Tobacco Use Status Former Tobacco user 05/16/25 09:35 e-Cigarette/Vaping Use Former Use 05/16/25 09:35 Thrive Assessment: Date of Thrive Assessment Date Thrive assessed 02/15/25 05/16/25 09:35 Const Other: General: Alert and oriented, Well nourished, No acute distress. Eye: Pupils are equal, round and reactive to light, Intact accommodation, Extraocular movements are intact, Normal conjunctiva, Vision unchanged. HENT: Normocephalic, Atraumatic, Tympanic membranes are clear, Normal hearing, Oral mucosa is moist, No pharyngeal erythema, Ear canals patent. 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 Respiratory: Lungs CTA bilaterally, No wheeze, Respirations are non-labored. Cardiovascular: Regular rate, Regular rhythm, S1 auscultated, S2 auscultated, No murmur, Good pulses equal in all extremities, Normal peripheral perfusion, No edema. Gastrointestinal: Soft, Non-tender, Non-distended, Normal bowel sounds, No organomegaly. Musculoskeletal: Normal range of motion, Normal strength, No tenderness, No swelling, No deformity, Normal gait. Noted arthritis in fingers and upper thighs. Integumentary: Warm, Dry, [place], Intact. Neurologic: Alert, Oriented, Normal sensory, Normal motor function, No focal defects, Cranial Nerves II-XII are grossly intact, Normal deep tendon reflexes. Psychiatric: Cooperative, Appropriate mood & affect, Normal judgment. Coding Level of Care Code Est Pt Level 4 (73934) Complex EM visit Add On G2211 Diagnoses Hypothyroidism, unspecified type E03.9 Hypothyroidism type: unspecified Iron deficiency anemia, unspecified iron deficiency anemia type D50.9 Anemia type: iron deficiency Iron deficiency anemia type: unspecified iron deficiency Impacted cerumen of left ear H61.22 Laterality: left Epistaxis not due to trauma R04.0 Arthritis M19.90 Myasthenia gravis G70.00 Benzodiazepine abuse, episodic F13.10 Assessment & Plan Assessment & Plan (1) Hypothyroidism: Comment: TSH levels reviewed showing adequate control as compared to prior which were suppressed. -continue levothyroxine 50 mcg daily Code(s): E03.9 - Hypothyroidism, unspecified Category: Medical Qualifiers: Hypothyroidism type: unspecified Qualified Code(s): E03.9 - Hypothyroidism, unspecified (2) Anemia: Comment: Prior labs demonstrated low serum iron and hemoglobin of under 9. Repeat blood work did demonstrate normalized iron panel however we will repeat CBC today to evaluate Code(s): D64.9 - Anemia, unspecified Category: Medical Qualifiers: Anemia type: iron deficiency Iron deficiency anemia type: unspecified iron deficiency Qualified Code(s): D50.9 - Iron deficiency anemia, unspecified (3) Cerumen impaction: Comment: Reports increased wax production and having to clean out the ear with occasional fluid drainage. On exam middle ear. Normal with visualization of the tympanic membrane. Advised to hold off on excessive her eyedrops Code(s): H61.20 - Impacted cerumen, unspecified ear Category: Medical Qualifiers: Laterality: left Qualified Code(s): H61.22 - Impacted cerumen, left ear (4) Epistaxis not due to trauma: Comment: Reports epistaxis on blowing his nose and no trauma or picking his nose. Advised using a humidifier and feet continues to have complications we will consider nasal mist spray. The scheduled with see ENT in a few months Code(s): R04.0 - Epistaxis Category: Medical (5) Arthritis: Comment: Reports having pains in his distal interphalangeal joints for the past few months so worse on waking up and towards the end of the day that does improve with Tylenol Arthritis. On exam does have some deviation of his 1st interphalangeal joints however has normal range of motion. Advised the continue remain active Code(s): M19.90 - Unspecified osteoarthritis, unspecified site Category: Medical (6) Myasthenia gravis: Comment: Meds tried: prednisone, azathioprine, pyridostigmine, ivIg [place] [facility] [place]: all three were high [place] brain and orbits [place] [facility] in Nov 2023: Minimal MVD, R frontal venous angioma Chest CT [place] [facility] [place]: no mediastinal mass. small pulm nodules MRI brain WO [place] [facility] [place]: mild MVD NICS [place] [facility] [place]: [place] NCV/EMG LE Bilateral multilevel mid and lower lumbar radiculopathy. 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 MRI brain WO [place] [facility] [place] January 20[place]: mild MVD CT brain WO at [facility] [place]: [place]. - Continue follow up with neurology and pyridostigmine Code(s): G70.00 - Myasthenia gravis without (acute) exacerbation Category: Medical (7) Benzodiazepine abuse, episodic: Comment: - Extensive history of Alprazolam use and has successfully been weaned off. Code(s): F13.10 - Sedative, hypnotic or anxiolytic abuse, uncomplicated Category: Medical Plan: Health Maintenance: - Recommendation for humidifier to manage dryness and prevent epistaxis. - Continue walking and non-strenuous physical activities for arthritis management. - Review vitamin D and calcium intake to support musculoskeletal health. Plan In today's visit, we discussed the patient's management of cerumen impaction, advising him to continue current treatment with limited use of eardrops to address fluid buildup. The patient was advised to follow up with ENT for expert evaluation in July. It was important to reiterate the discontinuation of Alprazolam due to respiratory risks, especially considering the patient's age and existing Myasthenia Gravis. Discussions with the patient emphasized ongoing management of chronic conditions including allergic rhinitis and arthritis while addressing acute concerns such as recurring nosebleeds. Consent was obtained for repeat thyroid and CBC testing to keep track of the patient's anemia and thyroid function improvement. The patient's understanding of cessation of Alprazolam use was confirmed, and he was advised on alternative measures to ensure respiratory safety. Orders: Orders Complete Blood Count Auto Diff Today D50.9 - Iron deficiency anemia, unspecified TSH reflex Free T4 Today E03.9 - Hypothyroidism, unspecified Medications: Discontinued alprazolam Discontinued Reason: Doctor's Order 0.25 mg PO BID 30 days PRN 60 tabs 3RF Anxiety Patient Instructions: - Use eardrops sparingly to manage ear discomfort and blockage. - Use a humidifier in the home to alleviate nosebleeds and dryness. - Continue iron supplements as prescribed. - Maintain regular exercise but listen to your body and rest when needed. - Avoid use of Alprazolam due to associated risks; dispose of any remaining pills. - Follow up with ENT for ear evaluation as scheduled. - Seek immediate medical attention in case of severe nosebleeds or unexpected symptoms related to Myasthenia Gravis.
[2025-05-16 09:32] VITALS: BP 138/68; PULSE 69; RESP 18; TEMP 37.1; O2SAT 98; BMI 24.7
--- OUTSIDE RECORDS SUMMARY | 2025-05-16 10:53 | XMS_ITS | Clinical Summary ---
Author Organization [employer] Address [address] [place] [address] Care Team Providers Care Fire Dispatcher Name Role Phone Unavailable Primary Care Provider [...] 06/23/2016 04/28/2016 COVID-19 Vaccine (5 - season) 2025 08/14/2022, 07/24/2021, 11/27/2020, Additional history exists Influenza [...]
== END 2025-05-16 09:53 | disposition home or self-care (01) ==
LOC: HO.HMCHD 09:22
PROVIDERS: PCP Student in an Organized Health Care Education/Training Program; Visit Provider Student in an Organized Health Care Education/Training Program
DX: E03.9 Hypothyroidism, unspecified (principal); R04.0 Epistaxis; G70.00 Myasthenia gravis without (acute) exacerbation; F13.10 Sedative, hypnotic or anxiolytic abuse, uncomplicated; D50.9 Iron deficiency anemia, unspecified; H61.22 Impacted cerumen, left ear; M19.90 Unspecified osteoarthritis, unspecified site

== ENCOUNTER → 2025-05-16 09:21 | Outpatient (BNVA) | payer MEDICARE, MEDICAID, SELFPAY | PROVIDERS: PCP Student in an Organized Health Care Education/Training Program; Visit Provider Student in an Organized Health Care Education/Training Program | DX: E03.9 Hypothyroidism, unspecified (principal); D50.9 Iron deficiency anemia, unspecified; H61.22 Impacted cerumen, left ear; R04.0 Epistaxis; M19.90 Unspecified osteoarthritis, unspecified site; G70.00 Myasthenia gravis without (acute) exacerbation; F13.10 Sedative, hypnotic or anxiolytic abuse, uncomplicated; Z79.899 Other long term (current) drug therapy | CPT/HCPCS: 99212 ==

== ENCOUNTER 2025-05-16 09:55 | Outpatient (REF) | payer MEDICARE, MEDICAID, SELFPAY ==
[2025-05-16 10:42] LABS: MANUAL DIFF FLAG NO
[2025-05-16 10:50] LABS: Hematocrit 36.4 % (42.0-52.0); Hemoglobin 12.2 g/dl (14.0-18.0); Imm Gran Abs Auto 0.10 X10*3/uL (0.00-0.03); Imm Gran Pct Auto 1.1 % (0.0-0.4); Lymphocytes Absolute Auto 1.2 X10*3/uL (1.2-4.9); Mean Corpuscular HGB Conc 33.5 g/dl (31.0-36.0); Mean Corpuscular Hemoglobin 28.9 pg (27.0-33.0); Mean Corpuscular Volume 86.3 fL (80.0-98.0); NRBC Abs Auto 0.000 X10*3/uL (0.0-0.012); NRBC Pct Auto 0.0 /100WBC (0.0-0.2); Platelet Count 293 X10*3/uL (160-400); Red Blood Count 4.22 X10*6/uL (4.60-5.80); White Blood Count 8.7 X10*3/uL (4.8-10.8)
[2025-05-16 13:17] LABS: Free T4 (Free Thyroxine) 0.71 ng/dL (0.71-1.85)
== END 2025-05-16 09:56 | disposition home or self-care (01) ==
LOC: HO.10HDL 09:55
PROVIDERS: Visit Provider Student in an Organized Health Care Education/Training Program
DX: D50.9 Iron deficiency anemia, unspecified (principal); E03.9 Hypothyroidism, unspecified
CPT/HCPCS: 36415; 84439; 84443; 85025

== ENCOUNTER 2025-07-15 08:21 | Outpatient (REF) | payer MEDICARE, MEDICAID, SELFPAY ==
--- OUTSIDE RECORDS SUMMARY | 2025-07-15 08:43 | XMS_ITS | Clinical Summary ---
Author Organization [employer] Address [address] [place] [address] Care Team Providers Care Production Underwriter Name Role Phone Unavailable Primary Care Provider Unavailabl e Allergies Active Allergy Reactions Criticality Noted Date Comments Sulfa Antibiotics Unknown 08/21/2024 Medications levothyroxine (Tirosint) 50 MCG capsule Take 50 mcg by mouth. 1 Active pyridostigmine (Mestinon) 60 MG tablet TAKE 2-3 TABS BY MOUTH EVERY DAY Active simvastatin (Zocor) 20 MG tablet Take 20 mg by mouth Once per day. Active acetaminophen (Tylenol) 500 MG tablet Take 1 tablet (500 mg) by mouth every 6 (six) hours if needed for mild pain. 15 tablet 5 Active ibuprofen 400 MG tablet Take 1 tablet (400 mg) by mouth every 6 (six) hours if needed for moderate pain. 15 tablet 5 Active acetaminophen (Tylenol) 500 MG tablet Take 1 tablet (500 mg) by mouth every 6 (six) hours if needed for mild pain. 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 09/20/2024 Encounters Date Type Department Care Team Description 06/17/2025 11:30 AM EDT Office Visit [facility] [address] [place] [address] Yordan Jorgensen DDS Open fracture of tooth with nonunion (Primary Dx) from Last 3 Months Social History Tobacco [...] Sign Reading Time Taken Comments Blood Pressure 128/76 06/17/2025 11:48 AM EDT Pulse 70 06/17/2025 11:48 AM EDT Temperature - - Respiratory Rate - - Oxygen Saturation - - Inhaled Oxygen Concentration - - Weight - - Height - - Body Mass Index - - Plan of Treatment Upcoming Encounters Date Type Department Care Team (Late st Contact Info) Description 07/23/2025 10:30 AM EST Office Visit [facility] [address], [place] [phone] Yordan Jorgensen, DDS [address], [place] [phone] Health Maintenance Due Date Last Done Comments [...] 07/08/2022, 07/07/2022, Additional history exists Tobacco Screening 06/17/2026 06/17/2025 RSV Patients and Patients Aged 60 years [...] Procedure Name Priority Date/Time Associated Diagnosis Comments CASE PRESENTATION, DETAILED AND EXTENSIVE TREATMENT PLANNING Routine 06/17/2025 11:30 AM EDT 9 EXTRACTION, ERUPTED TOOTH OR EXPOSED ROOT (ELEVATION/FORCEPS REMOVAL) Routine 06/17/2025 11:30 AM EDT INTRAORAL - PERIAPICAL FIRST RADIOGRAPHIC IMAGE Routine 06/17/2025 11:30 AM EDT LIMITED ORAL EVALUATION - PROBLEM FOCUSED Routine 06/17/2025 11:30 AM EDT 9 ROOT CANAL Routine 06/17/2025 12:00 AM EDT from Last 3 Months Insurance DENTAL - [facility] FULL (MEDICAID)
[2025-07-15 08:59] LABS: Hematocrit 37.8 % (42.0-52.0); Hemoglobin 12.7 g/dl (14.0-18.0); Mean Corpuscular HGB Conc 33.6 g/dl (31.0-36.0); Mean Corpuscular Hemoglobin 30.8 pg (27.0-33.0); Mean Corpuscular Volume 91.5 fL (80.0-98.0); NRBC Abs Auto 0.000 X10*3/uL (0.0-0.012); NRBC Pct Auto 0.0 /100WBC (0.0-0.2); Platelet Count 301 X10*3/uL (160-400); Red Blood Count 4.13 X10*6/uL (4.60-5.80); White Blood Count 9.3 X10*3/uL (4.8-10.8)
[2025-07-15 09:40] LABS: Iron 116 mcg/dL (45-160); Percent Iron Saturation 44 % (15-50); Total Iron Binding Capacity 264 mcg/dL (228-428); Unsaturated Iron Binding 148 ug/dL
[2025-07-15 09:44] LABS: Ferritin 73 ng/mL (20-250)
== END 2025-07-15 08:22 | disposition home or self-care (01) ==
LOC: HO.LAB 08:21
PROVIDERS: PCP Student in an Organized Health Care Education/Training Program; Visit Provider Internal Medicine Gastroenterology
DX: K62.7 Radiation proctitis (principal)
CPT/HCPCS: 36415; 82728; 83540; 85027